=== PATIENT | female | born 1950 | race Caucasian/White ===

== ENCOUNTER → 2024-03-27 | Outpatient (CLI) | payer MEDICARE, BC, SELFPAY ==
[2024-03-27 10:57] LABS: Collection Type, Urine Clean Catch
[2024-03-27 11:29] LABS: Basophils % (Auto) 1 % (0-2.5); Eosinophils # (Auto) 0.3 Thou/mm3 (0.0-0.5); Eosinophils % (Auto) 4 % (0-10); Hematocrit 39.8 % (36.0-46.0); Immature Granulocytes % (Auto) 0 % (0-0); Immature Granulocytes Auto 0.01 Thou/mm3 (0.00-0.00); Lymphocytes # (Auto) 2.5 Thou/mm3 (1.0-4.8); Lymphocytes % (Auto) 38 % (10-50); Mean Corpuscular HGB Conc 32.7 g/dl (31.0-37.0); Mean Corpuscular Hemoglobin 28.6 pg (25.0-35.0); Mean Corpuscular Volume 88 fL (80-100); Monocytes # (Auto) 0.5 Thou/mm3 (0.0-0.8); Monocytes % (Auto) 8 % (0-12); Neutrophils # (Auto) 3.1 Thou/mm3 (1.8-7.7); Neutrophils % (Auto) 49 % (37-80); Nucleated Red Blood Cell % 0 /100 WBC (0); Platelet Count 169 Thou/mm3 (140-440); RDW Standard Deviation 46.5 fL (36.4-46.3); Red Blood Count 4.54 Miln/mm3 (4.00-5.20); White Blood Count 6.4 Thou/mm3 (3.6-11.0)
[2024-03-27 11:47] LABS: Amorphous Crystals,Urine Present (Absent); Bilirubin,Urine Negative (Negative); Blood,Urine Negative (Negative); Color,Urine Lt-Yellow (Lt Yel-Yel); Culture Indicated,Urine Not Indicated; Glucose, Urine Negative (Negative); Ketones,Urine Negative (Negative); Leukocyte Esterase,Urine Negative (Negative); Nitrite,Urine Negative (Negative); PH,Urine 7.5 (5.0-7.0); Protein,Urine 2+ (Neg - Trace); RBC,Urine 3 /hpf (0-3); Specific Gravity,Urine 1.011 (1.001-1.035); Squamous Epithelial Cell,Urine 1 /hpf (0-5); Urobilinogen,Urine Negative mg/dL (0.0-1.0); WBC,Urine 1 /hpf (0-5)
[2024-03-27 11:49] LABS: Clarity,Urine Hazy (Clear/Hazy)
[2024-03-27 11:53] LABS: Glucose Estimated Average 123 mg/dL (80-131); Hemoglobin A1C 5.9 % Hgb (4.8-6.0)
[2024-03-27 11:54] LABS: Alanine Aminotransferase 45 U/L (10-49); Albumin, Serum 4.1 gm/dL (3.4-4.8); Albumin/Globulin Ratio 1.6 (1.2-2.2); Alkaline Phosphatase 57 U/L (46-116); Anion Gap 6 (7-16); Aspartate Amino Transferase 42 U/L (0-34); BUN/Creatinine Ratio 18 Ratio (12-20); Bilirubin,Total 0.5 mg/dL (0.3-1.2); Blood Urea Nitrogen 20 mg/dL (9-23); Calcium 10.7 mg/dL (8.3-10.6); Calcium (Corrected) 10.7 mg/dL (8.5-10.1); Carbon Dioxide 29.5 mMol/L (20.0-31.0); Cardiac Risk Estimate 5.4 RATIO (3.7-5.6); Chloride 107 mMol/L (98-107); Cholesterol 162 mg/dL (132-200); Creatinine (Component) 1.1 mg/dL (0.6-1.3); Free T4 (Free Thyroxine) 1.51 ng/dL (0.89-1.76); Globulin 2.6 gm/dL (2.3-3.5); Glucose 102 mg/dL (74-106); HDL Cholesterol 30 mg/dL (40-60); LDL Cholesterol,Calculated 92 mg/dL (0-130); Osmolality,Calculated 285 (275-295); Potassium 3.5 mMol/L (3.4-5.1); Sodium 142 mMol/L (136-145); Thyroid Stimulating Hormone 0.85 uIU/mL (0.55-4.78); Total Protein 6.7 gm/dL (5.7-8.2); Triglycerides 202 mg/dL (30-150); eGFR 53 See Note
[2024-03-27 12:06] LABS: Creatinine MALB Rnd Ur 47 mg/dL (30-125); Microalbumin Creat Ratio 1949 mg/gCrea (<30); Microalbumin, Random Urine 916 mg/L (0-300)
== END | disposition home or self-care (01) ==
LOC: SLDO 10:50
PROVIDERS: PCP Internal Medicine; Referring Provider Internal Medicine; Visit Provider Internal Medicine
DX: I10 Essential (primary) hypertension (principal); E11.65 Type 2 diabetes mellitus with hyperglycemia
CPT/HCPCS: 36415; 80053; 80061; 81001; 82043; 82570; 83036; 84439; 84443; 85025

== ENCOUNTER 2024-04-15 17:31 | Inpatient (IN) | payer MEDICARE, BC, SELFPAY ==
[2024-04-15] VITALS (7 sets, daily range): BP systolic 130–144; BP diastolic 105–117; PULSE 73–81; RESP 7–17; TEMP 37.3–37.5; O2SAT 95–97; BMI 38.9
--- NOTE | 2024-04-15 17:56 | XR_ITS ---
Examination: CT brain head without contrast. 2-D sagittal coronal reconstructions Date and time of exam:April 15, 2024 1813 hrs. Indications: Onset altered mental status today, diagnosis breast cancer post radiation therapy mastectomy, onset confusion December 2023, cerebritis encephalopathy pattern on brain MRI December 30, 2023, history CVA left basal ganglia, left brainstem on CT brain December 24, 2023 Comparison: December 24, 2023 CTDI: vol (mGy):53.5 DLP: (mGycm):1118 Technique: Multiple CT axial sections of the brain have been obtained, 5 mm slice thickness. Contrast has not been administered. 2-D sagittal, coronal reconstructions have been obtained Low dose protocols were performed. One or more of the following dose reduction techniques were used; automated exposure control, adjustment of the mA and/or KV according to patient size, use of iterative reconstruction technique. Findings: No significant ventricular enlargement. Old infarct left basal ganglia, left brainstem pontine level Intra-axial or extra-axial hemorrhage density is not seen. No mass effect or midline shift Basal cisterns are not remarkable. Fourth ventricle is midline. Cranial vault intact. Impression: Negative for acute hemorrhage, mass effect or midline shift Consider repeat brain MRI follow-up stroke protocol
--- NOTE | 2024-04-15 17:57 | EKG_ITS ---
[facility] Test Date: 2024-04-15 Pat Name: VAIBHAV ZUÑIGA Department: Room: - Gender: Female Paper Folder: : 1950 Requested By: Rg Pfeiffer Order Number: [id number] Reading MD: Rg Pfeiffer Measurements Intervals Odonnell Rate: 78 P: -1 LA: 179 QRS: -71 QRSD: 133 T: 46 QT: 303 QTc: 346 Interpretive Statements SINUS RHYTHM MARKED LEFT AXIS DEVIATION [QRS AXIS < -30] INTRAVENTRICULAR CONDUCTION DELAY [130+ ms QRS DURATION] VOLTAGE CRITERIA FOR LVH [MEETS CRITERIA IN ONE OF: R(aVL), S(V1), R(V5), R(V5/V6)+S(V1)] Compared to ECG 12/24/2023 13:33:36 Left-axis deviation now present First degree AV block no longer present ST (T wave) deviation no longer present /store/S0/[id number]/[id number].pdf
--- NOTE | 2024-04-15 17:59 | PD.EDADULT ---
ED General RME/HPI General Chief complaint: Altered Mental Status Stated complaint: AMS Time Seen by Provider: 04/15/24 17:48 Arrival date/time: 04/15/24 17:31 CC: Altered mental status HPI report from EMS is approximately 3 to 4 days. The patient is obtunded but is responding very simple questions and brisk withdrawing to noxious stimuli. Patient is afebrile with stable vital signs. Review the medical records show a similar episode occurred in December 2023 which was determined to be a urinary tract infection. Patient also has a history of breast cancer at bedside was interviewed at 1830, states the patient has had a slow decline over the last 2 weeks. Has been states since the discharge in December 2023 from this facility patient has been nonambulatory and he has been using a Roger lift to move her from bed to chair and back. Patient also states the patient is a DNR DNI. Related Data Home Medications ?Medication ?Instructions ?Recorded ?Confirmed atorvastatin 40 mg tablet (Lipitor) 80 mg PO HS #0 tabs 09/07/16 04/16/24 omeprazole 20 mg capsule,delayed 20 mg PO QDAY ##0 09/07/16 12/24/23 release amiodarone 200 mg tablet 200 mg PO QDAY 03/25/22 12/28/23 anastrozole 1 mg tablet 1 mg PO QDAY 03/25/22 12/24/23 apixaban 5 mg tablet (Eliquis) 5 mg PO BID 03/25/22 12/28/23 hydrocodone 10 mg-acetaminophen 1 tab PO QID PRN Pain, Moderate 03/25/22 12/28/23 325 mg tablet memantine 10 mg tablet 5 mg PO QDAY 03/25/22 12/28/23 pramipexole 0.5 mg tablet 0.5 mg PO HS 03/25/22 12/24/23 alendronate 35 mg tablet 20 mg PO WMHS 08/02/23 12/24/23 sennosides 8.6 mg tablet (Senna 8.6 mg PO QDAY 08/02/23 12/24/23 Lax) triazolam 0.125 mg tablet 0.25 mg PO HS PRN Insomnia 08/02/23 04/16/24 calcium 600 mg (as carbonate)-vit 1 tab PO BID 12/24/23 12/24/23 D3 20 mcg (800 unit) chewable tablet (Caltrate plus D) nifedipine 30 mg tablet,extended 30 mg PO QDAY 12/24/23 12/24/23 release 24 hr bisacodyl 5 mg tablet,delayed 5 mg PO BID 12/28/23 12/28/23 release (Dulcolax (bisacodyl)) fluoxetine 20 mg capsule 20 mg PO HS 12/28/23 12/28/23 gabapentin 600 mg tablet 100 mg PO HS 12/28/23 04/16/24 multivitamin 1 cap PO QDAY 12/28/23 12/28/23 sitagliptin phosphate 100 mg 100 mg PO QDAY 12/28/23 12/28/23 tablet (Januvia) Allergies Allergy/AdvReac Type Severity Reaction Status Date / Time meperidine Allergy Mild VOMITING Verified 03/26/22 08:51 tetracycline Allergy Mild RASH Verified 03/26/22 08:51 Course Course Course Narrative: Patient's case discussed with resident for Dr. Guidry who agrees to accept the patient for admission. Patient will be admitted for UTI altered mental status elevated calcium level Quality Measures VTE prophylaxis Orders Category Date Time Status EKG (ED ONLY) *Do not use* NOW Care 04/15/24 17:57 Completed Brown [Urinary Catheter] QS Care 04/15/24 17:55 Active Brown [Urinary Catheter] QS Care 04/15/24 17:59 Active Saline [Insert IV] NOW Care 04/15/24 17:[address] head/brain wo con Stat Exams 04/15/24 17:56 Completed EKG (ED Only) Stat Exams 04/15/24 17:57 Draft B-Type Natriuretic Peptide Stat Lab 04/15/24 18:05 Completed Blood Culture (Lab) Stat Lab 04/15/24 18:00 Received CBC Stat Lab 04/15/24 18:05 Completed Comprehensive Metabolic Panel Stat Lab 04/15/24 18:05 Completed Drug Screen,Urine Stat Lab 04/15/24 18:00 Completed LDH (Lactate Dehydrogenase) Stat Lab 04/15/24 18:05 Completed Lactic Acid [Lactate (Lactic Acid)] Stat Lab 04/15/24 18:05 Completed Magnesium Stat Lab 04/15/24 18:05 Completed Partial Thromboplastin Time Stat Lab 04/15/24 18:05 Completed Procalcitonin Stat Lab 04/15/24 18:05 Completed Prothrombin Time with INR Stat Lab 04/15/24 18:05 Completed Troponin I Stat Lab 04/15/24 18:05 Completed Urinalysis Stat Lab 04/15/24 18:00 Completed Urine Culture Stat Lab 04/15/24 18:00 Received POTASSIUM CHL 10 mEq IVPB [Kcl Ivpb] Med 04/15/24 19:19 Discontinued 10 meq in 100 ml IV Q1H Sodium Chloride 0.9% 1000 ml [Ns] 1,000 ml Med 04/15/24 17:58 Discontinued IV 100 mls/hr cefTRIAXone/D5w 1gm IV premix [Rocephin/D5w 1gm IV Med 04/15/24 18:53 Discontinued premix] 50 ml IV X1 Vital Signs Vital signs: Vital Signs Pulse Rate 81 04/15/24 17:44 Respiratory Rate 7 L 04/15/24 17:44 Blood Pressure 144/117 H 04/15/24 17:44 Pulse Oximetry (%) 95 04/15/24 17:44 Oxygen Delivery Method Room Air 04/15/24 17:44 Oxygen Flow Rate 3 04/15/24 17:44 [facility] Patient data External records reviewed:: [facility] previous records and EMS form Clinical information provided by:: patient and EMS Social determinants that could affect healthcare access:: none Patient has the following chronic illnesses:: Breast cancer recurrent UTI How is presenting disease/condition affected by chronic disease/condition?: uneffected by Evaluation data The following diagnostics were reviewed and interpreted by me:: lab results and EKG tracing(s) Lab and/or radiology exams considered but not ordered:: EKG performed at 1908 shows ventricular rate of 78 ND interval 179 QRS of 133 QTc of 336 is sinus rhythm left axis deviation. When compared to an old EKG of December 2023 there are no significant changes. CBC shows a leukocytosis no anemia thrombocytopenia Coags within acceptable limits CMP sodium 155 potassium 3.0 chloride of 118 bicarb of 24.9 BUN of 56 creatinine of 2.8 with a glucose of 163. Urine is positive for UTI positive for nitrites positive for 4+ bacteria as well as leukocyte esterase. CT of the head is interpreted by me read by radiology as negative for any acute finding requires emergent or immediate intervention. Interpretation Summary: Last urine culture sensitivity shows the patient has E. coli that is resistant to Rocephin. CT of the head is negative urine is positive this is similar to the last admission in December 2023 the patient has a UTI and elevated calcium level will admit the patient for altered mental status hypercalcemia and UTI. Medications Medications considered but not ordered:: None Medication administrations:: Medication Administration History Acetaminophen (Acetaminophen 325 Mg Tablet) 650 mg PO Q6H PRN PRN Reason: PAIN OR FEVER > 101 Stop: 05/15/24 19:49 Hydrocodone Bitart/Acetaminophen (Hydrocodone/Apap 10/325 Tab) 1 tab PO Q6HR PRN PRN Reason: PAIN SCALE 4-10(Mod-Sev Stop: 04/20/24 19:53 Amiodarone HCl (Amiodarone Hcl 200 Mg Tablet) 200 mg PO QDAY [facility] Stop: 05/16/24 08:59 Last Admin: 04/16/24 09:20 Dose: Not Given Documented By: NS Non-Admin Reason: pt NPO pending speech eval Apixaban (Apixaban 2.5 Mg Tablet) 5 mg PO BID [facility] [place] Stop: 05/15/24 20:59 Last Admin: 04/16/24 09:21 Dose: Not Given Documented By: NS Non-Admin Reason: pt NPO pending speech eval Admin: 04/15/24 23:04 Dose: Not Given Documented By: VR Non-Admin Reason: NPO Dextrose (Dextrose 50%-Water Inj 50 Ml Syringe) 25 ml IV Q15MIN PRN PRN Reason: BG 50-70 responsive npo pt Stop: 05/15/24 19:55 Dextrose (Dextrose 50%-Water Inj 50 Ml Syringe) 50 ml IV Q15MIN PRN PRN Reason: BG <50 OR BG <70 & pt unresponsive Stop: 05/15/24 19:55 Glucagon (Glucagon Inj 1 Mg Vial) 1 mg IM Q15MIN PRN PRN Reason: BG <70, and no IV access Hydralazine HCl (Hydralazine Inj 20 Mg/Ml Vial) 10 mg IV Q6H PRN PRN Reason: sbp>160 Stop: 05/16/24 05:29 Ceftriaxone Sodium/Dextrose (Rocephin/D5w 1gm Iv Premix) 50 mls @ 100 mls/hr IV QDAY [facility] [place] Stop: 04/23/24 08:59 Last Admin: 04/16/24 09:20 Dose: 100 mls/hr Documented By: ELDER Dextrose (D5w) 1,000 mls @ 100 mls/hr IV .Q10H SABINA Stop: 04/17/24 06:44 Last Admin: 04/16/24 06:45 Dose: 100 mls/hr Documented By: VIKAS Insulin Human Lispro (Insulin Lispro (Admelog) 1 Unit/0.01 Ml Unit) 0 unit SC Q6HR SBAINA; Protocol Stop: 05/16/24 00:14 Last Admin: 04/16/24 05:33 Dose: 2 unit Documented By: VIKAS Co-signed By: STEPHANIE Admin: 04/16/24 00:10 Dose: 1 unit Documented By: VIKAS Co-signed By: NAVIN Ondansetron HCl (Ondansetron Inj 2 Mg/Ml Inj 2 Ml) 4 mg IV Q6H PRN; Protocol PRN Reason: NAUSEA OR VOMITING Stop: 05/15/24 19:49 Pantoprazole Sodium (Pantoprazole Inj 40 Mg Vial) 40 mg IVP QDAY SABINA Stop: 05/16/24 08:59 Last Admin: 04/16/24 09:19 Dose: 40 mg Documented By: ELDER Sennosides (Senna Tablet) 1 tab PO QDAY [facility]; Protocol Stop: 05/16/24 08:59 Last Admin: 04/16/24 09:21 Dose: Not Given Documented By: NS Non-Admin Reason: pt NPO pending speech eval Discontinued Medications Calcitonin [place] (Calcitonin, [place] Synth Inj 1 Unit/0.005 Ml Vial) 400 unit SC X1 ONE Stop: 04/16/24 00:32 Last Admin: 04/16/24 01:17 Dose: 400 unit Documented By: VIKAS Denosumab (Denosumab Inj 60 Mg/Ml Syringe) 60 mg SC X1 SABINA Stop: 05/15/24 21:44 Denosumab (Denosumab Inj 60 Mg/Ml Syringe) 60 mg SC X1 ONE Stop: 04/16/24 01:01 Hydralazine HCl (Hydralazine Inj 20 Mg/Ml Vial) 10 mg IV Q6H PRN PRN Reason: Blood Pressure - High Stop: 05/16/24 05:29 Last Admin: 04/16/24 05:35 Dose: 10 mg Documented By: VIKAS Sodium Chloride (Ns) 1,000 mls @ 100 mls/hr IV .Q10H SABINA Stop: 04/16/24 17:57 Last Admin: 04/15/24 18:43 Dose: 100 mls/hr Documented By: MARICRUZ Ceftriaxone Sodium/Dextrose (Rocephin/D5w 1gm Iv Premix) 50 mls @ 100 mls/hr IV X1 ONE Stop: 04/15/24 19:22 Last Admin: 04/15/24 19:20 Dose: 100 mls/hr Documented By: HERBERTH Potassium Chloride (Kcl Ivpb) 10 meq in 100 mls @ 100 mls/hr IV Q1H SABINA Stop: 04/15/24 23:18 Last Admin: 04/16/24 02:03 Dose: 90 mls/hr Documented By: Infusion: 04/16/24 01:52 Dose: Infused Documented By: Admin: 04/16/24 00:45 Dose: 90 mls/hr Documented By: Infusion: 04/15/24 23:52 Dose: Infused Documented By: Admin: 04/15/24 22:45 Dose: 90 mls/hr Documented By: Infusion: 04/15/24 22:30 Dose: Infused Documented By: Admin: 04/15/24 20:31 Dose: 100 mls/hr Documented By: HERBERTH Sodium Chloride (Ns) 1,000 mls @ 100 mls/hr IV .Q10H SABINA Stop: 04/16/24 15:59 Last Admin: 04/15/24 23:46 Dose: Not Given Documented By: VIKAS Non-Admin Reason: task duplication Sodium Chloride (Ns) 1,000 mls @ 150 mls/hr IV .Q6H40M [facility] Stop: 04/16/24 21:00 Last Admin: 04/16/24 02:56 Dose: 150 mls/hr Documented By: VIKAS Insulin Human Lispro (Insulin Lispro (Admelog) 1 Unit/0.01 Ml Unit) 0 unit SC ACHS [facility]; Protocol Stop: 05/15/24 20:59 Last Admin: 04/15/24 22:46 Dose: Not Given Documented By: HERBERTH Non-Admin Reason: NPO Comments: not given Pamidronate Disodium (Pamidronate Inj 90 Mg/10 Ml Vial) 90 mg IV X1 ONE Stop: 04/15/24 19:53 Last Admin: 04/16/24 03:01 Dose: Not Given Documented By: VIKAS Non-Admin Reason: Discontinued None Consultations Consultation(s) initiated? (list below): No Diagnosis Differential Diagnosis ED Complaint MDM: WILLIAM dehydration UTI altered mental status hypercalcemia Most likely diagnosis given after review of the tests above:: WILLIAM dehydration UTI altered mental status hypercalcemia Admission Indicated Admission indicated?: indicated Explain why admission is indicated or not indicated:: Requires further medical management Admission Request Was there a request for admission?: No Disposition Plan Disposition Plan: Admit Medical Decision Making Differential Diagnosis Differential Diagnosis: WILLIAM dehydration UTI altered mental status hypercalcemia Lab Data 04/16/24 05:23 04/16/24 09:05 Labs: Lab Results 04/15/24 04/15/24 Range/Units 18:00 18:05 WBC 15.7 H (3.6-11.0) Thou/mm3 RBC 5.71 H (4.00-5.20) Miln/mm3 Hgb 16.5 H (12.0-16.0) g/dL Hct 51.2 H (36.0-46.0) % MCV 90 (80-100) fL MCH 28.9 (25.0-35.0) pg MCHC 32.2 (31.0-37.0) g/dl RDW Std Deviation 46.9 H (36.4-46.3) fL Plt Count 190 (140-440) Thou/mm3 Neut % (Auto) 65 (37-80) % Lymph % (Auto) 27 (10-50) % Simpson % (Auto) 7 (0-12) % Eos % (Auto) 0 (0-10) % Baso % (Auto) 0 (0-2.5) % Neut # (Auto) 10.2 H (1.8-7.7) Thou/mm3 Lymph # (Auto) 4.2 (1.0-4.8) Thou/mm3 Simpson # (Auto) 1.1 H (0.0-0.8) Thou/mm3 Eos # (Auto) 0.0 (0.0-0.5) Thou/mm3 Baso # (Auto) 0.1 (0.0-0.2) Thou/mm3 Immature Gran # (Auto) 0.06 H (0.00-0.00) Thou/mm3 Absolute Nucleated RBC 0.00 (0.00-0.00) Thou/mm3 Immature Gran % 0 (0-0) % Nucleated RBC % 0 (0) /100 WBC PT 13.0 H (9.0-12.2) Seconds INR 1.2 (0.9-1.3) APTT 25.0 (22.0-36.0) Seconds Sodium 155 H (136-145) mMol/L Potassium 3.0 L (3.4-5.1) mMol/L Chloride 118 H (98-107) mMol/L Carbon Dioxide 24.9 (20.0-31.0) mMol/L Anion Gap 12 (7-16) BUN 56 H (9-23) mg/dL Creatinine 2.8 H (0.6-1.3) mg/dL Estim Creat Clear Calc 20.5 L (>60) mL/min eGFR 17 L (60 - ) See Note BUN/Creatinine Ratio 20 (12-20) Ratio Glucose 163 H (74-106) mg/dL Calculated Osmolality 326 H (275-295) Lactic Acid 1.2 (0.4-2.0) mMol/L Calcium 13.8 H* (8.3-10.6) mg/dL Corrected Calcium 13.8 H* (8.5-10.1) mg/dL Magnesium 2.6 (1.6-2.6) mg/dL Total Bilirubin 0.6 (0.3-1.2) mg/dL AST 55 H (0-34) U/L ALT 42 (10-49) U/L Alkaline Phosphatase 65 (46-116) U/L Lactate Dehydrogenase 236 (120-246) U/L Troponin I 0.044 (0.0-0.045) ng/mL B-Natriuretic Peptide 94 (0-100) pg/mL Total Protein 7.9 (5.7-8.2) gm/dL Albumin 4.6 (3.4-4.8) gm/dL Globulin 3.3 (2.3-3.5) gm/dL Albumin/Globulin Ratio 1.4 (1.2-2.2) Procalcitonin 0.28 (0.0-0.49) ng/ml Ur Collection Type Clean Catch Urine Color Yellow (Lt Yel-Yel) Urine Clarity Turbid A (Clear/Hazy) Urine pH 6.0 (5.0-7.0) Ur Specific [place] 1.022 (1.001-1.035) Urine Protein 3+ A (Neg - Trace) Urine Glucose (UA) Negative (Negative) Urine Ketones Negative (Negative) Urine Blood Trace (Negative) Urine Nitrite Negative (Negative) Urine Bilirubin Negative (Negative) Urine Urobilinogen (Auto) Negative (0.0-1.0) mg/dL Ur Leukocyte Esterase Positive (Negative) Urine RBC 3 (0-3) /hpf Urine WBC 145 H (0-5) /hpf Ur Squamous Epith Cells 3 (0-5) /hpf Urine Bacteria 4+ A (None) Hyaline Casts < 1 (0-1) /hpf Urine Opiates Screen Positive A (Negative) Urine Fentanyl Screen Negative (Negative) Ur Barbiturates Screen Negative (Negative) U Amphetamin/Meth Scrn Negative (Negative) U Benzodiazepines Scrn Negative (Negative) U Cocaine Metab Screen Negative (Negative) U Marijuana (THC) Screen Negative (Negative) Discharge Plan Plan Patient Disposition: Admit Acute Care w/in Hospital Patient condition on transfer: Stable Problem List Clinical Impression: Altered mental status, Urinary tract infection, Dehydration, WILLIAM (acute kidney injury), Hypercalcemia PA/[employer]ARCH [employer] SCIENTIST Supervising Physician PA/[employer] SCIENTIST Supervising Physician: Rg Huitron ENP
[2024-04-15 18:12] LABS: Lactate (Lactic Acid) 1.2 mMol/L (0.4-2.0)
[2024-04-15 18:14] LABS: Collection Type, Urine Clean Catch
[2024-04-15 18:15] LABS: Basophils # (Auto) 0.1 Thou/mm3 (0.0-0.2); Basophils % (Auto) 0 % (0-2.5); Eosinophils % (Auto) 0 % (0-10); Hematocrit 51.2 % (36.0-46.0); Hemoglobin 16.5 g/dL (12.0-16.0); Immature Granulocytes % (Auto) 0 % (0-0); Immature Granulocytes Auto 0.06 Thou/mm3 (0.00-0.00); Lymphocytes # (Auto) 4.2 Thou/mm3 (1.0-4.8); Lymphocytes % (Auto) 27 % (10-50); Mean Corpuscular HGB Conc 32.2 g/dl (31.0-37.0); Mean Corpuscular Hemoglobin 28.9 pg (25.0-35.0); Mean Corpuscular Volume 90 fL (80-100); Monocytes # (Auto) 1.1 Thou/mm3 (0.0-0.8); Monocytes % (Auto) 7 % (0-12); Neutrophils # (Auto) 10.2 Thou/mm3 (1.8-7.7); Neutrophils % (Auto) 65 % (37-80); Nucleated Red Blood Cell % 0 /100 WBC (0); Platelet Count 190 Thou/mm3 (140-440); RDW Standard Deviation 46.9 fL (36.4-46.3); Red Blood Count 5.71 Miln/mm3 (4.00-5.20); White Blood Count 15.7 Thou/mm3 (3.6-11.0)
[2024-04-15 18:25] LABS: Bacteria,Urine 4+; Bilirubin,Urine Negative (Negative); Blood,Urine Trace (Negative); Clarity,Urine Turbid (Clear/Hazy); Color,Urine Yellow (Lt Yel-Yel); Glucose, Urine Negative (Negative); Hyaline Casts,Urine < 1 /hpf (0-1); Ketones,Urine Negative (Negative); Leukocyte Esterase,Urine Positive (Negative); Nitrite,Urine Negative (Negative); Protein,Urine 3+ (Neg - Trace); RBC,Urine 3 /hpf (0-3); Specific Gravity,Urine 1.022 (1.001-1.035); Squamous Epithelial Cell,Urine 3 /hpf (0-5); Urobilinogen,Urine Negative mg/dL (0.0-1.0); WBC,Urine 145 /hpf (0-5)
[2024-04-15 18:33] LABS: Amphetamine/Methamp Scrn,U Negative (Negative); Barbiturate Screen,Urine Negative (Negative); Benzodiazepines Screen,Urine Negative (Negative); Benzoylecgonine Screen, Ur Negative (Negative); Fentanyl Screen,Urine Negative (Negative); Opiate Screen,Urine Positive (Negative); THC Screen,Urine Negative (Negative)
[2024-04-15 18:39] LABS: B-Type Natriuretic Peptide 94 pg/mL (0-100)
[2024-04-15 18:42] LABS: Alanine Aminotransferase 42 U/L (10-49); Albumin, Serum 4.6 gm/dL (3.4-4.8); Albumin/Globulin Ratio 1.4 (1.2-2.2); Alkaline Phosphatase 65 U/L (46-116); Anion Gap 12 (7-16); Aspartate Amino Transferase 55 U/L (0-34); BUN/Creatinine Ratio 20 Ratio (12-20); Bilirubin,Total 0.6 mg/dL (0.3-1.2); Blood Urea Nitrogen 56 mg/dL (9-23); Carbon Dioxide 24.9 mMol/L (20.0-31.0); Chloride 118 mMol/L (98-107); Creatinine (Component) 2.8 mg/dL (0.6-1.3); Estimated Creatinine Clearance 20.5 mL/min (>60); Globulin 3.3 gm/dL (2.3-3.5); Glucose 163 mg/dL (74-106); LDH (Lactate Dehydrogenase) 236 U/L (120-246); Magnesium 2.6 mg/dL (1.6-2.6); Osmolality,Calculated 326 (275-295); Procalcitonin 0.28 ng/ml (0.0-0.49); Sodium 155 mMol/L (136-145); Total Protein 7.9 gm/dL (5.7-8.2); Troponin I 0.044 ng/mL (0.0-0.045); eGFR 17 See Note
[2024-04-15] MEDS: SODIUM CHLORIDE 0.9% 1000 ML 1,000 ML 100 ML IV (18:43)
[2024-04-15 19:10] LABS: Calcium 13.8 mg/dL (8.3-10.6); Calcium (Corrected) 13.8 mg/dL (8.5-10.1)
[2024-04-15] MEDS: cefTRIAXone/D5w 1gm IV premix 50 ML IV (19:20)
[2024-04-15 19:38] LABS: INR 1.2 (0.9-1.3)
--- NOTE | 2024-04-15 19:58 | PD.RESHP ---
Documentation for date of: 04/15/24 [facility] History of Present Illness History of present illness: Patient is 73-year-old female with past medical history of triple coronary artery bypass surgery, complicated with wound infection, subsequently had operative debridement and wound VAC was placed, has a wide deep scar in the middle of the chest, history of partial mastectomy due to breast cancer, completed full course of radiation in 2021, history of recurrent UTIs, dementia, history of hypercalcemia of malignancy, presents to ED accompanied with with chief complaints of altered mental status. Upon my evaluation patient was AAO x 0, and most of the history were taken from as well as per chart review. Symptoms started about a week ago, per patient had decreased appetite and oral intake, also for the last 3 months patient has been having visual hallucination, was seeing someone who is not present in the room. Last week per they had outpatient labs done, which was normal for the most part, however especially for the last 3 days, patient was becoming more somnolent, was not able to answer to questions, was not able to communicate, and was looking more altered. Subsequently has been decided to bring her to ED for further evaluation. On presentation patient was hemodynamically stable, saturating in room air, labs revealed leukocytosis with WBC of 15.7, hemoglobin of 16.5, hematocrit 51.2, CMP revealed hyper natremia with sodium of 155, hypokalemia, potassium of 3.0, WILLIAM with BUN of 56, creatinine is 2.8, EGFR of 17, calcium is 13.8, UA is consistent with UTI, U tox is positive for opioids, patient is on Weir at home. CT head was negative for any hemorrhage, mass or midline shift, MRI which was done in 12/30/2023 showed increased white matter signal in the posterior oral right temporal parietal lobe with septal enhancement of the cortex. In ED patient was given 1 bolus of NS along with potassium IV Patient will be admitted for acute metabolic encephalopathy most likely in the setting of hypercalcemia versus UTI versus dehydration versus worsening baseline dementia. PMH: as above PSH; CABG, partial mastectomi SH: no smoking, drinking, recreational drugs FH:unknown Review of Systems Review of Systems ROS Unobtainable: unobtainable due to mental status Exam Vital Signs Temp Pulse Resp BP Pulse Ox O2 Del Method O2 Flow Rate 99.1 F 77 16 130/105 H 97 Nasal Cannula 2 04/15/24 19:33 04/15/24 19:33 04/15/24 19:33 04/15/24 19:33 04/15/24 19:33 04/15/24 19:33 04/15/24 19:33 Narrative Exam GENERAL: no acute distress, AAO x, obese HEENT: Head AT/ NC. Mucous membranes moist. PERRL. NECK: Supple, no lymphadenopathy, no carotid bruits. CARDIOVASCULAR: No m/r/g. wide deep scare in a middle of chest, small scare on left breast, No pitting edema of bilateral LEs. RESPIRATORY: No wheezing, rhonchi, crackles, however limited due to body habitus GASTROINTESTINAL: Abdomen soft, non tender no palpable masses. Bowel sounds present in all 4 quadrants.Brown noted with turbit urine NEUROLOGICAL: No focal deficits. Sensation intact, symmetric. INTEGUMENTARY: no jaundice, normal turgor. Results: Labs 04/15/24 18:05 04/15/24 20:20 Labs: Short CBC 04/15/24 Range/Units 18:05 WBC 15.7 H (3.6-11.0) Thou/mm3 Hgb 16.5 H (12.0-16.0) g/dL Hct 51.2 H (36.0-46.0) % Plt Count 190 (140-440) Thou/mm3 BMP 04/15/24 18:05 Sodium 155 H Potassium 3.0 L Chloride 118 H Carbon Dioxide 24.9 BUN 56 H Creatinine 2.8 H Glucose 163 H Calcium 13.8 H* Cardiac Enzymes 04/15/24 Range/Units 18:05 Troponin I 0.044 (0.0-0.045) ng/mL Liver Function 04/15/24 Range/Units 18:05 Total Bilirubin 0.6 (0.3-1.2) mg/dL AST 55 H (0-34) U/L ALT 42 (10-49) U/L Alkaline Phosphatase 65 (46-116) U/L Albumin 4.6 (3.4-4.8) gm/dL Urine 04/15/24 Range/Units 18:00 Urine Color Yellow (Lt Yel-Yel) Urine Clarity Turbid A (Clear/Hazy) Urine pH 6.0 (5.0-7.0) Ur Specific [place] 1.022 (1.001-1.035) Urine Protein 3+ A (Neg - Trace) Urine Glucose (UA) Negative (Negative) Quality Measures Quality Measures VTE prophylaxis Advance care planning discussed with:: spouse Medications Home Medications and Allergies Home Medications ?Medication ?Instructions ?Recorded ?Confirmed ?Type atorvastatin 40 mg tablet (Lipitor) 40 mg PO HS #0 tabs 09/07/16 12/28/23 History omeprazole 20 mg capsule,delayed 20 mg PO QDAY ##0 09/07/16 12/24/23 History release amiodarone 200 mg tablet 200 mg PO QDAY 03/25/22 12/28/23 History anastrozole 1 mg tablet 1 mg PO QDAY 03/25/22 12/24/23 History apixaban 5 mg tablet (Eliquis) 5 mg PO BID 03/25/22 12/28/23 History hydrocodone 10 mg-acetaminophen 1 tab PO QID PRN Pain, Moderate 03/25/22 12/28/23 History 325 mg tablet memantine 10 mg tablet 5 mg PO QDAY 03/25/22 12/28/23 History pramipexole 0.5 mg tablet 0.5 mg PO HS 03/25/22 12/24/23 History alendronate 35 mg tablet 20 mg PO WMHS 08/02/23 12/24/23 History sennosides 8.6 mg tablet (Senna 8.6 mg PO QDAY 08/02/23 12/24/23 History Lax) triazolam 0.125 mg tablet 0.125 mg PO HS 08/02/23 12/24/23 History calcium 600 mg (as carbonate)-vit 1 tab PO BID 12/24/23 12/24/23 History D3 20 mcg (800 unit) chewable tablet (Caltrate plus D) nifedipine 30 mg tablet,extended 30 mg PO QDAY 12/24/23 12/24/23 History release 24 hr bisacodyl 5 mg tablet,delayed 5 mg PO BID 12/28/23 12/28/23 History release (Dulcolax (bisacodyl)) fluoxetine 20 mg capsule 20 mg PO HS 12/28/23 12/28/23 History gabapentin 600 mg tablet 600 mg PO TID 12/28/23 12/28/23 History multivitamin 1 cap PO QDAY 12/28/23 12/28/23 History sitagliptin phosphate 100 mg 100 mg PO QDAY 12/28/23 12/28/23 History tablet (Januvia) Allergies Allergy/AdvReac Type Severity Reaction Status Date / Time meperidine Allergy Mild VOMITING Verified 03/26/22 08:51 tetracycline Allergy Mild RASH Verified 03/26/22 08:51 Visit Medications Acetaminophen (Acetaminophen 325 Mg Tablet) 650 mg PO Q6H PRN PRN Reason: PAIN OR FEVER > 101 Stop: 05/15/24 19:49 Hydrocodone Bitart/Acetaminophen (Hydrocodone/Apap 10/325 Tab) 1 tab PO Q6HR PRN PRN Reason: PAIN SCALE 4-10(Mod-Sev Stop: 04/20/24 19:53 Apixaban (Apixaban 2.5 Mg Tablet) 5 mg PO BID SABINA Stop: 05/15/24 20:59 Dextrose (Dextrose 50%-Water Inj 50 Ml Syringe) 25 ml IV Q15MIN PRN PRN Reason: BG 50-70 responsive npo pt Stop: 05/15/24 19:55 Dextrose (Dextrose 50%-Water Inj 50 Ml Syringe) 50 ml IV Q15MIN PRN PRN Reason: BG <50 OR BG <70 & pt unresponsive Stop: 05/15/24 19:55 Glucagon (Glucagon Inj 1 Mg Vial) 1 mg IM Q15MIN PRN PRN Reason: BG <70, and no IV access Sodium Chloride (Ns) 1,000 mls @ 100 mls/hr IV .Q10H SABINA Stop: 04/16/24 17:57 Last Admin: 04/15/24 18:43 Dose: 100 mls/hr Potassium Chloride (Kcl Ivpb) 10 meq in 100 mls @ 100 mls/hr IV Q1H SABINA Stop: 04/15/24 23:18 Sodium Chloride (Ns) 1,000 mls @ 100 mls/hr IV .Q10H SABINA Stop: 05/15/24 19:59 Ceftriaxone Sodium/Dextrose (Rocephin/D5w 1gm Iv Premix) 50 mls @ 100 mls/hr IV QDAY [facility] Stop: 04/23/24 08:59 Insulin Human Lispro (Insulin Lispro (Admelog) 1 Unit/0.01 Ml Unit) 0 unit SC ACHS SABINA; Protocol Stop: 05/15/24 20:59 Ondansetron HCl (Ondansetron Inj 2 Mg/Ml Inj 2 Ml) 4 mg IV Q6H PRN; Protocol PRN Reason: NAUSEA OR VOMITING Stop: 05/15/24 19:49 Pantoprazole Sodium (Pantoprazole Inj 40 Mg Vial) 40 mg IVP QDAY SABINA Stop: 05/16/24 08:59 Sennosides (Senna Tablet) 1 tab PO QDAY SABINA; Protocol Stop: 05/16/24 08:59 Discontinued Medications Ceftriaxone Sodium/Dextrose (Rocephin/D5w 1gm Iv Premix) 50 mls @ 100 mls/hr IV X1 ONE Stop: 04/15/24 19:22 Last Admin: 04/15/24 19:20 Dose: 100 mls/hr Pamidronate Disodium (Pamidronate Inj 90 Mg/10 Ml Vial) 90 mg IV X1 ONE Stop: 04/15/24 19:53 Assessment & Plan Plan 73-year-old female with past medical history of CABG complicated with wound infection, subsequently had operative debridement and wound VAC was placed, has a wide deep scar in the middle of the chest, history of partial mastectomy due to breast cancer, completed full course of radiation in 2021, history of recurrent UTIs, dementia, history of hypercalcemia of malignancy was admitted for acute metabolic encephalopathy most likely secondary due to hypercalcemia, dehydration, UTI, versus worsening baseline dementia. #Acute metabolic encephalopathy in the setting of UTI and hypercalcemia versus worsening baseline dementia #Hypercalcemia in the setting of dehydration versus malignancy related hypercalcemia #Dehydration #UTI #WILLIAM most likely prerenal in the setting of dehydration Patient presented with worsening baseline mentation Patient has a history of hypercalcemia most likely secondary due to malignancy, and recently has been taking vitamin D/calcium vitamins also stated that for the last week patient had very poor oral intake was not eating and drinking enough CT head was negative for any hemorrhage, mass or midline shift Labs revealed hypercalcemia with calcium of 13.8, sodium 155, chloride is 118, hemoglobin is 16.5, hematocrit 51.2, WILLIAM with creatinine of 2.8, BUN 15 6, all this labs consistent with severe dehydration, hemoconcentration. -Admit to telemetry for close observation -Aspiration precaution -Keep n.p.o. -NS 100 cc/h, keep monitoring sodium level, avoid sodium correction more than 10-15 in the first 24-hour, Q4h sodium check.(free water deficit 4.8L, she got 1 bolus in ED and currently on 100 cc/h, continue with the normal saline until perfusion deficits corrected, then can be switched to 1/2NS UOP>0.5ml/kg/h. Target 0.5mEq/hr correction ) -Denosumab 60 subcu subcu x 1. (In-house no availability of pamidronic acid, zolendronic acid was considered but given the WILLIAM and CrCl <30, will give donesumab) -Continue ceftriaxone, previous urine culture showed E. coli sensitive to ceftriaxone -Monitor mental status -Speech swallow eval -Treat underlying conditions such as hypercalcemia and UTI -Daily CMP -nephrology was consulted . recs appresiated #hypokalemia replaced, -monitore, replace PRN #DM type II Patient was on home Ozempic -Pending HbA1c -Insulin sliding scale -hypoglycemic protocole is placed -monitor BS #h/oDVT and PE patient is on eliquis 5mg BID Wells score for PE 4.0 moderate risk -will resume after swallow eval is passed #s/p CABG #HTN #HLD BP under control -will resume atorvastatin after swallow eval is passed #Hx of dementia - Patient is on memantine -Will resume after swallow eval is passed #Hx of RLS -Patient is on pramipexole Will resume after swallow eval is passed #hx of breast cancer MRI which was done in 12/30/2023 showed increased white matter signal in the posterior oral right temporal parietal lobe with septal enhancement of the cortex. they have been trying to get an appointment with Dr. Uriostegui, but bc of transportation issues they did not succeed -Dr. Uriostegui consult was placed. recs are appretiated Disposition:telemetry DVT prophylaxis: elequis GI prophylaxis: PPI Diet: NPO, pending speech eval Lines: PIV CODE STATUS:DNR Patient care was discussed with attending physician Dr. Chao Hunter MD PGY-2 I have carefully reviewed this document. Due to imperfections in the voice software, there could be grammatical errors including phonetic/typographic errors. This in no way compromises the medical care the patient is receiving Attending Provider Attestation/Addendum I reviewed labs, imaging, EKG, home medications and prior available records. Face to face evaluation was performed by me. I have personally examined the patient and discussed assessment and plan with the IM team. I reviewed the resident note and agree with the plan with exceptions as below. 73-year-old female with history of dementia likely Alzheimer's type, history of frequent UTIs, who presented with a chief complaint of altered mental status. She was found to have WILLIAM, hypercalcemia, and dehydration. Acute encephalopathy: Likely multifactorial in the setting of hypercalcemia, dehydration, and acute UTI. In the setting of history of dementia. Started the patient on IV fluids. Gave Prolia IV. Started the patient on IV ceftriaxone. Send urine culture. Delirium precautions. Hypercalcemia: Calcium was 13.8 on admission. Started the patient on IV fluids. Gave IV Prolia. Stop calcium/vitamin D supplements. Ordered PTH. Concern for malignancy given her history of breast cancer for which we will consult oncology for further workup. Follow-up calcium level. Acute UTI: Antibiotics as above. Follow-up urine culture. WILLIAM: Likely prerenal in setting of dehydration. IV fluids as above. Monitor kidney function. Avoid nephrotoxins. Leukocytosis: Differential diagnosis includes reactive in the setting of dehydration versus in the setting of infection. Management as above. Trend WBC. Alzheimer's dementia: Resume home memantine once she is able to take orals.
[2024-04-15] MEDS: POTASSIUM CHL 10 mEq IVPB 10 MEQ/100 ML BAG 100 MEQ IV (20:31)
[2024-04-15 21:06] LABS: Sodium 154 mMol/L (136-145); Troponin I 0.044 ng/mL (0.0-0.045)
--- NOTE | 2024-04-15 21:11 | PC.NURSE ---
Admiting notified at around 2057,that pt unable to swallow, therfor unable to administer. angel mae notified that we do not carry pamidromate in ED. HS is calling pharmacy.
[2024-04-15 21:43] LABS: Base Excess 3 (-3-3); HCO3 28 mEq/L (20-26); O2 Saturation 98 % (91-98); PCO2 46 mmHg (32.0-48.0); PO2 103 mmHg (83-108)
[2024-04-15 21:46] LABS: Allen Test Not Performed; Inspired O2, VO2 Liters 3 L/min; Puncture Site Right Brachial
[2024-04-15] MEDS: POTASSIUM CHL 10 mEq IVPB 10 MEQ/100 ML BAG 90 MEQ IV (22:45)
[2024-04-16] VITALS (11 sets, daily range): BP systolic 117–170; BP diastolic 81–121; PULSE 68–77; RESP 12–19; TEMP 36.1–36.9; O2SAT 92–96; BMI 40.6
--- NOTE | 2024-04-16 00:04 | PC.NURSE ---
DR. ELLSWORTH MADE AWARE OF PROLIA NOT AVAILABLE IN [facility] UNTIL PHARMACY OPENS IN AM. STATES SHE WILL CALL PHARMACY TO SEE WHAT ALTERNATIVE OPTION THERE IS.
[2024-04-16] MEDS: INSULIN LISPRO (AdmeLOG) 1 UNIT/0.01 ML UNIT SC ×5 (00:10→23:44)
[2024-04-16] MEDS: POTASSIUM CHL 10 mEq IVPB 10 MEQ/100 ML BAG 90 MEQ IV ×2 (00:45→02:03)
--- NOTE | 2024-04-16 01:02 | PC.NURSE ---
CLARIFIED WITH DR. BETANCOURT THAT BOTH DENOSUMAB AND CALCITONIN BE GIVEN, SHE STATED TO GIVE BOTH.
[2024-04-16 01:05] LABS: Calcium 12.7 mg/dL (8.3-10.6); Sodium 153 mMol/L (136-145)
[2024-04-16] MEDS: CALCITONIN, SALMON SYNTH INJ 1 UNIT/0.005 ML VIAL 400 UNIT SC (01:17)
[2024-04-16] MEDS: SODIUM CHLORIDE 0.9% 1000 ML 1,000 ML 150 ML IV (02:56)
[2024-04-16 02:57] LABS: Troponin I 0.043 ng/mL (0.0-0.045)
--- NOTE | 2024-04-16 03:05 | PC.NURSE ---
SPOKE WITH DR. TURK REGARDING DENOSUMAB AND LABEL COMMENT. UNABLE TO SPEAK WITH REGARDING MEDICATION. STATES HE WILL SPEAK WITH DR. SAWYER FOR RECOMMENDATION. DR. TUKR CALLED BACK AND STATED TO HOLD MEDICATION UNTIL THE MORNING UNTIL FAMILY IS MADE AWARE OF MEDICATION.
[2024-04-16] MEDS: hydrALAZINE INJ 20 MG/ML VIAL 10 MG IV (05:35)
[2024-04-16 06:02] LABS: Basophils % (Auto) 0 % (0-2.5); Eosinophils # (Auto) 0.1 Thou/mm3 (0.0-0.5); Eosinophils % (Auto) 1 % (0-10); Hematocrit 47.4 % (36.0-46.0); Hemoglobin 15.1 g/dL (12.0-16.0); Immature Granulocytes % (Auto) 1 % (0-0); Immature Granulocytes Auto 0.08 Thou/mm3 (0.00-0.00); Lymphocytes # (Auto) 3.3 Thou/mm3 (1.0-4.8); Lymphocytes % (Auto) 24 % (10-50); Mean Corpuscular HGB Conc 31.9 g/dl (31.0-37.0); Mean Corpuscular Hemoglobin 29.2 pg (25.0-35.0); Mean Corpuscular Volume 92 fL (80-100); Monocytes # (Auto) 0.9 Thou/mm3 (0.0-0.8); Monocytes % (Auto) 7 % (0-12); Neutrophils % (Auto) 67 % (37-80); Nucleated Red Blood Cell % 0 /100 WBC (0); Platelet Count 142 Thou/mm3 (140-440); RDW Standard Deviation 48.4 fL (36.4-46.3); Red Blood Count 5.18 Miln/mm3 (4.00-5.20); White Blood Count 13.3 Thou/mm3 (3.6-11.0)
[2024-04-16 06:27] LABS: Alanine Aminotransferase 33 U/L (10-49); Albumin, Serum 4.1 gm/dL (3.4-4.8); Albumin/Globulin Ratio 1.3 (1.2-2.2); Alkaline Phosphatase 60 U/L (46-116); Anion Gap 12 (7-16); Aspartate Amino Transferase 39 U/L (0-34); BUN/Creatinine Ratio 23 Ratio (12-20); Bilirubin,Total 0.5 mg/dL (0.3-1.2); Blood Urea Nitrogen 54 mg/dL (9-23); Calcium 12.3 mg/dL (8.3-10.6); Calcium (Corrected) 12.3 mg/dL (8.5-10.1); Carbon Dioxide 23.5 mMol/L (20.0-31.0); Cardiac Risk Estimate 7.3 RATIO (3.7-5.6); Chloride 120 mMol/L (98-107); Cholesterol 161 mg/dL (132-200); Creatinine (Component) 2.4 mg/dL (0.6-1.3); Estimated Creatinine Clearance 24.4 mL/min (>60); Globulin 3.1 gm/dL (2.3-3.5); Glucose 172 mg/dL (74-106); HDL Cholesterol 22 mg/dL (40-60); LDL Cholesterol,Calculated 84 mg/dL (0-130); Magnesium 2.4 mg/dL (1.6-2.6); Osmolality,Calculated 326 (275-295); Phosphorous 3.5 mg/dL (2.4-5.1); Potassium 3.5 mMol/L (3.4-5.1); Sodium 155 mMol/L (136-145); Thyroid Stimulating Hormone 0.49 uIU/mL (0.55-4.78); Total Protein 7.2 gm/dL (5.7-8.2); Triglycerides 273 mg/dL (30-150); eGFR 21 See Note
[2024-04-16 06:28] LABS: Parathyroid Hormone Intact 47.3 pg/ml (18.5-88.0)
[2024-04-16] MEDS: DEXTROSE 5%-WATER 1,000 ML 100 ML IV ×2 (06:45→17:58)
[2024-04-16 07:04] LABS: Glucose Estimated Average 126 mg/dL (80-131)
[2024-04-16] MEDS: PANTOPRAZOLE INJ 40 MG VIAL IVP (09:19)
[2024-04-16] MEDS: cefTRIAXone/D5w 1gm IV premix 50 ML IV (09:20)
[2024-04-16 09:29] LABS: Troponin I 0.028 ng/mL (0.0-0.045)
--- NOTE | 2024-04-16 10:11 | XR_ITS ---
Examination: AP chest single view TECHNIQUE: Sitting AP portable chest single view Exam date and time: April 16, 2024 1025 hours Comparison January 20, 2024 INDICATIONS: Acute encephalopathy, shortness of breath today FINDINGS: Normal heart size CABG No lobar pneumonia or pulmonary edema Reduced inspiratory effort Old right-sided rib fractures IMPRESSION: Poor inspiratory effort chest x-ray
[2024-04-16 10:38] LABS: Sodium 156 mMol/L (136-145)
--- NOTE | 2024-04-16 10:54 | PC.SS ---
Update: Patient receiving IV antibiotics. Nephrology consultation is pending.
--- NOTE | 2024-04-16 11:14 | PCS.ST ---
Swallow Evaluation completed. See report for details. Initiate Dysphagia 1 diet. Feed when fully alert. Crush meds in purees. ST will follow
--- NOTE | 2024-04-16 11:50 | PC.NURSE ---
spoke to pt in regard to pt receiving denosumab, states that he spoke to doctors odjon and team and agrees with pt receiving said medication.
[2024-04-16] MEDS: DENOSUMAB INJ 60 MG/ML SYRINGE SC (12:05)
--- NOTE | 2024-04-16 13:18 | ESCONSULT_ITS ---
HPI Data of Consult Consult date: 04/16/24 Requesting Physician: Delmer Melissa DO Admitting Provider: Lauren Hunter MD Attending Provider: Delmer Melissa DO Primary Care Provider: Physician No Primary/Family Consult Narrative Reason for consult: WILLIAM, hypernatremia, hypercalcemia. History of present illness: Ms. Haque is a 73-year-old female with past medical history of dementia, CABG (2018,left breast cancer s/p partial mastectomy), hypertension and Hx of hypercalcemia presents to ED accompanied with with chief complaints of altered mental status. Most of the history was taken from as well as per chart review. Symptoms started about a week ago, per patient had decreased appetite and oral intake, also for the last 3 months patient has been having visual hallucination, was seeing someone who is not present in the room. Last week per they had outpatient labs done, which was normal for the most part, however especially for the last 3 days, patient was becoming more somnolent, was not able to answer to questions, was not able to communicate, and was looking more altered. Subsequently has been decided to bring her to ED for further evaluation. On presentation patient was hemodynamically stable, saturating in room air. Labs revealed leukocytosis with WBC of 15.7, hemoglobin of 16.5, hematocrit 51.2, CMP revealed hypernatremia with sodium of 155, hypokalemia, potassium of 3.0, WILLIAM with BUN of 56, creatinine is 2.8, EGFR of 17, calcium is 13.8, UA is consistent with UTI, U tox is positive for opioids, patient is on [place] at home. CT head was negative for any hemorrhage, mass or midline shift. MRI which was done in 12/30/2023 showed increased white matter signal in the posterior oral right temporal parietal lobe with septal enhancement of the cortex. In ED patient was given 1 bolus of NS along with potassium IV. Nephrology consulted for WILLIAM, hyponatremia, hypercalcemia. Patient seen and examined in telemetry. Patient at the bedside, provided history. Patient receiving D5W IVF. Patient minimally responsive, did not follow commands, eyes open and tracking. Patient had mild edema in all extremities. Brown cath in place. Sodium 155, potassium 3.5, bicarb 23.5, BUN 34, creatinine 2.4, eGFR 21. Patient has 0.5 L urinary output. Corrected calcium 12.3, phosphorus 3.5, magnesium 2.4. PTH 47.3. Urinalysis indicating urine infection: 3+ protein, 4+ bacteria, 145 WBCs. Will continue with IVF, monitor. cc:: cc: Delmer Melissa, Review of Systems Review of Systems ROS Unobtainable: unobtainable due to mental status and unobtainable due to medical condition Past Medical History Past Medical History NEUROLOGIC: Positive Neurological Disorders and Dementia; Negative Seizures CARDIAC: Positive Cardiac Disorders, Myocardial Infarction, Cardiac Arrhythmia, Hypercholesterolemia and Hypertension; Negative Congestive Heart Failure or Hypotension RESPIRATORY: Negative Chronic Obstructive Pulmonary Disease (COPD) or Asthma GASTROINTESTINAL: Positive Gastrointestinal Disorders and Gastroesophageal Reflux Disease GENITOURINARY: Positive Genitourinary Disorders and Kidney Stones; Negative Renal Disease REPRODUCTIVE: Positive Breast Cancer MUSCULOSKELETAL: Positive Musculoskeletal Disorders ENDOCRINE: Positive Endocrine Disorders and Diabetes Mellitus Type 2; Negative Diabetes Mellitus Type 1 HEMATOLOGIC: Negative Blood Disorders or Sickle Cell Disease PSYCHO/SOCIAL: Positive Depression OTHER HISTORY: Positive Hospitalization, Radiation Therapy, Measles, Mumps, Cancer and Breast Cancer; Negative Blood Transfusions or Anesthesia Reactions Family History FAMILY HISTORY: Negative Family Cardiac Disorders Surgical History SURGICAL: Positive Cardiac Surgery, Coronary Artery Bypass Graft, Coronary Stent, Joint Replacement, Mastectomy and Section Social History SMOKING STATUS: Unknown if ever smoked Past Medical History Comments PMH COMMENT: History of left breast CA status post partial mastectomy radiation; hypercalcemia history of coronary artery disease status post CABG Exam Vital Signs Temp Pulse Resp BP Pulse Ox O2 Del Method O2 Flow Rate 97.0 F 71 19 122/89 H 95 Nasal Cannula 1 04/16/24 12:00 04/16/24 12:00 04/16/24 12:00 04/16/24 12:00 04/16/24 12:00 04/16/24 12:00 04/16/24 12:00 Narrative Exam PE: Gen: Well-developed and well-nourished. Obese. HEENT: NCAT, PERRLA, EOMI, MMM, anicteric conjunctivae. CVS: normal S1 and S2. RRR. No M/R/G. Significant scar center chest due to infected surgical site s/p CABG. Resp: CTA B/L. No rhonchi, rales, crackles or wheezing. Poor breath sounds due to body habitus. Abd: soft, non-tender, non-distended. MSK: Good ROM in BUE & BLE. No rash. Trace edema lower extremities. Neuro: Patient minimally responsive. Did not follow commands. Awake and alert. Results Labs 04/16/24 05:23 04/16/24 17:50 Labs: Short CBC 04/15/24 04/16/24 Range/Units 18:05 05:23 WBC 15.7 H 13.3 H (3.6-11.0) Thou/mm3 Hgb 16.5 H 15.1 (12.0-16.0) g/dL Hct 51.2 H 47.4 H (36.0-46.0) % Plt Count 190 142 D (140-440) Thou/mm3 BMP 04/15/24 04/15/24 04/16/24 18:05 20:20 00:28 Sodium 155 H 154 H 153 H Potassium 3.0 L Chloride 118 H Carbon Dioxide 24.9 BUN 56 H Creatinine 2.8 H Glucose 163 H Calcium 13.8 H* 12.7 H* 04/16/24 04/16/24 05:23 09:05 Sodium 155 H 156 H Potassium 3.5 D Chloride 120 H Carbon Dioxide 23.5 BUN 54 H Creatinine 2.4 H Glucose 172 H Calcium 12.3 H Cardiac Enzymes 04/15/24 04/15/24 04/16/24 Range/Units 18:05 20:20 02:06 Troponin I 0.044 0.044 0.043 (0.0-0.045) ng/mL 04/16/24 Range/Units 09:05 Troponin I 0.028 (0.0-0.045) ng/mL Liver Function 04/15/24 04/16/24 Range/Units 18:05 05:23 Total Bilirubin 0.6 0.5 (0.3-1.2) mg/dL AST 55 H 39 H (0-34) U/L ALT 42 33 (10-49) U/L Alkaline Phosphatase 65 60 (46-116) U/L Albumin 4.6 4.1 D (3.4-4.8) gm/dL Urine 04/15/24 Range/Units 18:00 Urine Color Yellow (Lt Yel-Yel) Urine Clarity Turbid A (Clear/Hazy) Urine pH 6.0 (5.0-7.0) Ur Specific [place] 1.022 (1.001-1.035) Urine Protein 3+ A (Neg - Trace) Urine Glucose (UA) Negative (Negative) ABG Interpretation ABG results: 04/15/24 21:39 ABG pH 7.40 ABG pCO2 46 ABG pO2 103 ABG HCO3 28 H ABG O2 Saturation 98 ABG Base Excess 3 Quality Measures Quality Measures VTE prophylaxis Advance care planning discussed with:: spouse Medications Home Medications and Allergies Home Medications ?Medication ?Instructions ?Recorded ?Confirmed ?Type atorvastatin 40 mg tablet (Lipitor) 80 mg PO HS #0 tabs 09/07/16 04/16/24 History omeprazole 20 mg capsule,delayed 20 mg PO QDAY ##0 09/07/16 12/24/23 History release amiodarone 200 mg tablet 200 mg PO QDAY 03/25/22 12/28/23 History anastrozole 1 mg tablet 1 mg PO QDAY 03/25/22 12/24/23 History apixaban 5 mg tablet (Eliquis) 5 mg PO BID 03/25/22 12/28/23 History hydrocodone 10 mg-acetaminophen 1 tab PO QID PRN Pain, Moderate 03/25/22 12/28/23 History 325 mg tablet memantine 10 mg tablet 5 mg PO QDAY 03/25/22 12/28/23 History pramipexole 0.5 mg tablet 0.5 mg PO HS 03/25/22 12/24/23 History alendronate 35 mg tablet 20 mg PO WMHS 08/02/23 12/24/23 History sennosides 8.6 mg tablet (Senna 8.6 mg PO QDAY 08/02/23 12/24/23 History Lax) triazolam 0.125 mg tablet 0.25 mg PO HS PRN Insomnia 08/02/23 04/16/24 History calcium 600 mg (as carbonate)-vit 1 tab PO BID 12/24/23 12/24/23 History D3 20 mcg (800 unit) chewable tablet (Caltrate plus D) nifedipine 30 mg tablet,extended 30 mg PO QDAY 12/24/23 12/24/23 History release 24 hr bisacodyl 5 mg tablet,delayed 5 mg PO BID 12/28/23 12/28/23 History release (Dulcolax (bisacodyl)) fluoxetine 20 mg capsule 20 mg PO HS 12/28/23 12/28/23 History gabapentin 600 mg tablet 100 mg PO HS 12/28/23 04/16/24 History multivitamin 1 cap PO QDAY 12/28/23 12/28/23 History sitagliptin phosphate 100 mg 100 mg PO QDAY 12/28/23 12/28/23 History tablet (Januvia) Allergies Allergy/AdvReac Type Severity Reaction Status Date / Time meperidine Allergy Mild VOMITING Verified 03/26/22 08:51 tetracycline Allergy Mild RASH Verified 03/26/22 08:51 Visit Medications Acetaminophen (Acetaminophen 325 Mg Tablet) 650 mg PO Q6H PRN PRN Reason: PAIN OR FEVER > 101 Stop: 05/15/24 19:49 Hydrocodone Bitart/Acetaminophen (Hydrocodone/Apap 10/325 Tab) 1 tab PO Q6HR PRN PRN Reason: PAIN SCALE 4-10(Mod-Sev Stop: 04/20/24 19:53 Amiodarone HCl (Amiodarone Hcl 200 Mg Tablet) 200 mg PO QDAY SABINA Stop: 05/16/24 08:59 Last Admin: 04/16/24 09:20 Dose: Not Given Apixaban (Apixaban 2.5 Mg Tablet) 5 mg PO BID SABINA Stop: 05/15/24 20:59 Last Admin: 04/16/24 09:21 Dose: Not Given Dextrose (Dextrose 50%-Water Inj 50 Ml Syringe) 25 ml IV Q15MIN PRN PRN Reason: BG 50-70 responsive npo pt Stop: 05/15/24 19:55 Dextrose (Dextrose 50%-Water Inj 50 Ml Syringe) 50 ml IV Q15MIN PRN PRN Reason: BG <50 OR BG <70 & pt unresponsive Stop: 05/15/24 19:55 Glucagon (Glucagon Inj 1 Mg Vial) 1 mg IM Q15MIN PRN PRN Reason: BG <70, and no IV access Hydralazine HCl (Hydralazine Inj 20 Mg/Ml Vial) 10 mg IV Q6H PRN PRN Reason: sbp>160 Stop: 05/16/24 05:29 Ceftriaxone Sodium/Dextrose (Rocephin/D5w 1gm Iv Premix) 50 mls @ 100 mls/hr IV QDAY SABINA Stop: 04/23/24 08:59 Last Admin: 04/16/24 09:20 Dose: 100 mls/hr Dextrose (D5w) 1,000 mls @ 100 mls/hr IV .Q10H SABINA Stop: 04/17/24 06:44 Last Admin: 04/16/24 06:45 Dose: 100 mls/hr Insulin Human Lispro (Insulin Lispro (Admelog) 1 Unit/0.01 Ml Unit) 0 unit SC Q6HR SABINA; Protocol Stop: 05/16/24 00:14 Last Admin: 04/16/24 12:05 Dose: 2 unit Ondansetron HCl (Ondansetron Inj 2 Mg/Ml Inj 2 Ml) 4 mg IV Q6H PRN; Protocol PRN Reason: NAUSEA OR VOMITING Stop: 05/15/24 19:49 Pantoprazole Sodium (Pantoprazole Inj 40 Mg Vial) 40 mg IVP QDAY COUNT INCLUDES THE [facility] Stop: 05/16/24 08:59 Last Admin: 04/16/24 09:19 Dose: 40 mg Sennosides (Senna Tablet) 1 tab PO QDAY COUNT INCLUDES THE [facility]; Protocol Stop: 05/16/24 08:59 Last Admin: 04/16/24 09:21 Dose: Not Given Discontinued Medications Calcitonin [place] (Calcitonin, [place] Synth Inj 1 Unit/0.005 Ml Vial) 400 unit SC X1 ONE Stop: 04/16/24 00:32 Last Admin: 04/16/24 01:17 Dose: 400 unit Denosumab (Denosumab Inj 60 Mg/Ml Syringe) 60 mg SC X1 SABINA Stop: 05/15/24 21:44 Denosumab (Denosumab Inj 60 Mg/Ml Syringe) 60 mg SC X1 ONE Stop: 04/16/24 01:01 Last Admin: 04/16/24 12:05 Dose: 60 mg Hydralazine HCl (Hydralazine Inj 20 Mg/Ml Vial) 10 mg IV Q6H PRN PRN Reason: Blood Pressure - High Stop: 05/16/24 05:29 Last Admin: 04/16/24 05:35 Dose: 10 mg Sodium Chloride (Ns) 1,000 mls @ 100 mls/hr IV .Q10H SABINA Stop: 04/16/24 17:57 Last Admin: 04/15/24 18:43 Dose: 100 mls/hr Ceftriaxone Sodium/Dextrose (Rocephin/D5w 1gm Iv Premix) 50 mls @ 100 mls/hr IV X1 ONE Stop: 04/15/24 19:22 Last Admin: 04/15/24 19:20 Dose: 100 mls/hr Potassium Chloride (Kcl Ivpb) 10 meq in 100 mls @ 100 mls/hr IV Q1H SABINA Stop: 04/15/24 23:18 Last Admin: 04/16/24 02:03 Dose: 90 mls/hr Sodium Chloride (Ns) 1,000 mls @ 100 mls/hr IV .Q10H SABINA Stop: 04/16/24 15:59 Last Admin: 04/15/24 23:46 Dose: Not Given Sodium Chloride (Ns) 1,000 mls @ 150 mls/hr IV .Q6H40M SABINA Stop: 04/16/24 21:00 Last Admin: 04/16/24 02:56 Dose: 150 mls/hr Insulin Human Lispro (Insulin Lispro (Admelog) 1 Unit/0.01 Ml Unit) 0 unit SC ACHS SABINA; Protocol Stop: 05/15/24 20:59 Last Admin: 04/15/24 22:46 Dose: Not Given Pamidronate Disodium (Pamidronate Inj 90 Mg/10 Ml Vial) 90 mg IV X1 ONE Stop: 04/15/24 19:53 Last Admin: 04/16/24 03:01 Dose: Not Given Assessment & Plan Plan Ms. Haque is a 73-year-old female with past medical history of dementia, CABG (2018,left breast cancer s/p partial mastectomy), hypertension and Hx of hypercalcemia presents to ED accompanied with with chief complaints of altered mental status. #WILLIAM Likely prerenal azotemia due to dehydration. BUN 54, creatinine 2.4, eGFR 21, improving from initial admission labs. Patient on IVF, D5W. Plan: -Avoid nephrotoxic agents -Renally dose medications -IV fluids, D5W. -Will continue to monitor #Hypercalcemia, likely related to immobilization #Hypernatremia Patient presents with corrected calcium 12.3, phosphorus 3.5, magnesium 2.4. PTH 47.3. Patient is functionally bedbound. Sodium 155. Currently receiving IVF with D5W. CT head was unremarkable. -Continue IVF with D5W. -Monitor daily labs -Denosumab #Hx of breast cancer s/p mastectomy #DM type II #hx of DVT and PE #s/p CABG #HTN #HLD #Hx of dementia #Hx of RLS Management as per primary team. Thank you for allow me to participate in the care of this patient. Plan of care discussed with attending Dr. Tadeo. Jaime Lopez MD PGY-1 Attending Provider Attestation/Addendum Patient seen and examined with resident physician Dr. Lopez. Note reviewed, agree with findings and recommendations. Patient well-known to me from previous admissions for similar episodes of WILLIAM, electrolyte imbalance. is a sole care provider. Currently she is completely lethargic and barely arousable. Continue with gentle IV fluids. Will monitor her renal function, electrolytes closely. Thank you Dustin for allowing me to participate in the care of Ms. Patterson. at bedside. I will be away on vacation starting 04/17/2024 through 04/21/2024. Dr Correia will be covering for me.
--- NOTE | 2024-04-16 13:30 | ESPR_ITS ---
Documentation for date of: 04/16/24 Subjective Subjective Interval history: Patient seen at bedside. No acute overnight events. She is a 73-year-old female with a past medical history of CAD status post CABG, breast cancer status post partial mastectomy and radiation, hypercalcemia and recurrent UTIs who presented to the ED accompanied by with complaints of altered mental status that has really started about 3 weeks ago progressively worsened in the last couple days. ED labs were significant for leukocytosis, hyponatremia, hyperkalemia with WILLIAM- creatinine of 2.8. UA was consistent with UTI and U-Tox positive for opioids. Imaging was done which was negative for acute processes. The patient was given 1 L bolus of NS in the ED and started on IV ceftriaxone, admitted for management of acute encephalopathy( infectious versus metabolic) in the setting of dehydration versus malignancy versus UTI. Today at bedside, per patient's , she is better than she has been for few days, patient is still AAO x 0 but able to respond to her name. Labs showed improving calcium-12.3 today, patient has received IV fluids, calcitonin and will be receiving Prolia. Pending blood and urine cultures. Nephrology and oncology on board. Exam Vital Signs Temp Pulse Resp BP Pulse Ox O2 Del Method O2 Flow Rate 97.0 F 71 19 122/89 H 95 Nasal Cannula 1 04/16/24 12:00 04/16/24 12:00 04/16/24 12:00 04/16/24 12:00 04/16/24 12:00 04/16/24 12:00 04/16/24 12:00 Narrative Exam GENERAL: AAOX0, responds to name but seems lethargic/somnolent NEURO: No focal neurologic deficits HEENT: Dry mucosa. Eyes open, symmetrical, & clear CARDIO: Scar seein middle of chest from CABG.No chest pain on palpation. Heart RRR, no obvious murmurs PULM: No noted coughing/dyspnea. Lungs CTA B/L GI: Abdomen soft, nondistended, no pain on palpation. BSx4 URO/MD PSYCHIATRY:: No further abnormalities noted. SKIN/MSK/EXT: No wounds/rashes/edema/amputations, no pain on palpation. Pedal pulses present B/L Objective Labs 04/17/24 06:35 04/17/24 12:47 Labs: Laboratory Results - last 24 hr 1104/15/24 04/15/24 18:00 18:05 20:20 WBC 15.7 H RBC 5.71 H Hgb 16.5 H Hct 51.2 H MCV 90 MCH 28.9 MCHC 32.2 RDW Std Deviation 46.9 H Plt Count 190 Neut % (Auto) 65 Lymph % (Auto) 27 [place] % (Auto) 7 Eos % (Auto) 0 Baso % (Auto) 0 Neut # (Auto) 10.2 H Lymph # (Auto) 4.2 [place] # (Auto) 1.1 H Eos # (Auto) 0.0 Baso # (Auto) 0.1 Immature Gran # (Auto) 0.06 H Absolute Nucleated RBC 0.00 Immature Gran % 0 Nucleated RBC % 0 PT 13.0 H INR 1.2 APTT 25.0 Puncture Site ABG pH ABG pCO2 ABG pO2 ABG HCO3 ABG O2 Saturation ABG Base Excess Oxygen Liter Flow Sodium 155 H 154 H Potassium 3.0 L Chloride 118 H Carbon Dioxide 24.9 Anion Gap 12 BUN 56 H Creatinine 2.8 H Estim Creat Clear Calc 20.5 L eGFR 17 L BUN/Creatinine Ratio [address]ucose [address] Glu mg/dL Hemoglobin A1c Calculated Osmolality 326 H Lactic Acid 1.2 Calcium 13.8 H* Corrected Calcium 13.8 H* Phosphorus Magnesium 2.6 Total Bilirubin 0.6 AST 55 H ALT 42 Alkaline Phosphatase 65 Lactate Dehydrogenase 236 Troponin I 0.044 0.044 B-Natriuretic Peptide 94 Total Protein 7.9 Albumin 4.6 Globulin 3.3 Albumin/Globulin Ratio 1.4 Triglycerides Cholesterol LDL Cholesterol, Calc HDL Cholesterol Cholesterol/HDL Ratio Procalcitonin 0.28 TSH PTH Intact Ur Collection Type Clean Catch Urine Color Yellow Urine Clarity Turbid A Urine pH 6.0 Ur Specific [place] 1.022 Urine Protein 3+ A Urine Glucose (UA) Negative Urine Ketones Negative Urine Blood Trace Urine Nitrite Negative Urine Bilirubin Negative Urine Urobilinogen (Auto) Negative Ur Leukocyte Esterase Positive Urine RBC 3 Urine WBC 145 H Ur Squamous Epith Cells 3 Urine Bacteria 4+ A Hyaline Casts < 1 Urine Opiates Screen Positive A Urine Fentanyl Screen Negative Ur Barbiturates Screen Negative U Amphetamin/Meth Scrn Negative U Benzodiazepines Scrn Negative U Cocaine Metab Screen Negative U Marijuana (THC) Screen Negative 04/15/24 04/16/24 04/16/24 21:39 00:28 02:06 WBC RBC Hgb Hct MCV MCH MCHC RDW Std Deviation Plt Count Neut % (Auto) Lymph % (Auto) [place] % (Auto) Eos % (Auto) Baso % (Auto) Neut # (Auto) Lymph # (Auto) [place] # (Auto) Eos # (Auto) Baso # (Auto) Immature Gran # (Auto) Absolute Nucleated RBC Immature Gran % Nucleated RBC % PT INR APTT Puncture Site Right Brachial ABG pH 7.40 ABG pCO2 46 ABG pO2 103 ABG HCO3 28 H ABG O2 Saturation 98 ABG Base Excess 3 Oxygen Liter Flow 3 Sodium 153 H Potassium Chloride Carbon Dioxide Anion Gap BUN Creatinine Estim Creat Clear Calc eGFR BUN/Creatinine Ratio Glucose Estimated Ave Glu mg/dL Hemoglobin A1c Calculated Osmolality Lactic Acid Calcium 12.7 H* Corrected Calcium Phosphorus Magnesium Total Bilirubin AST ALT Alkaline Phosphatase Lactate Dehydrogenase Troponin I 0.043 B-Natriuretic Peptide Total Protein Albumin Globulin Albumin/Globulin Ratio Triglycerides Cholesterol LDL Cholesterol, Calc HDL Cholesterol Cholesterol/HDL Ratio Procalcitonin TSH PTH Intact Ur Collection Type Urine Color Urine Clarity Urine pH Ur Specific [place] Urine Protein Urine Glucose (UA) Urine Ketones Urine Blood Urine Nitrite Urine Bilirubin Urine Urobilinogen (Auto) Ur Leukocyte Esterase Urine RBC Urine WBC Ur Squamous Epith Cells Urine Bacteria Hyaline Casts Urine Opiates Screen Urine Fentanyl Screen Ur Barbiturates Screen U Amphetamin/Meth Scrn U Benzodiazepines Scrn U Cocaine Metab Screen U Marijuana (THC) Screen 04/16/24 04/16/24 05:23 09:05 WBC 13.3 H RBC 5.18 Hgb 15.1 Hct 47.4 H MCV 92 MCH 29.2 MCHC 31.9 RDW Std Deviation 48.4 H Plt Count 142 D Neut % (Auto) 67 Lymph % (Auto) 24 [place] % (Auto) 7 Eos % (Auto) 1 Baso % (Auto) 0 Neut # (Auto) 9.0 H Lymph # (Auto) 3.3 [place] # (Auto) 0.9 H Eos # (Auto) 0.1 Baso # (Auto) 0.0 Immature Gran # (Auto) 0.08 H Absolute Nucleated RBC 0.00 Immature Gran % 1 H Nucleated RBC % 0 PT INR APTT Puncture Site ABG pH ABG pCO2 ABG pO2 ABG HCO3 ABG O2 Saturation ABG Base Excess Oxygen Liter Flow Sodium 155 H 156 H Potassium 3.5 D Chloride 120 H Carbon Dioxide 23.5 Anion Gap 12 BUN 54 H Creatinine 2.4 H Estim Creat Clear Calc 24.4 L eGFR 21 L BUN/Creatinine Ratio 23 H Glucose [address] Glu mg/dL 126 Hemoglobin A1c 6.0 Calculated Osmolality 326 H Lactic Acid Calcium 12.3 H Corrected Calcium 12.3 H D Phosphorus 3.5 Magnesium 2.4 Total Bilirubin 0.5 AST 39 H ALT 33 Alkaline Phosphatase 60 Lactate Dehydrogenase Troponin I 0.028 B-Natriuretic Peptide Total Protein 7.2 Albumin 4.1 D Globulin 3.1 Albumin/Globulin Ratio 1.3 Triglycerides 273 H Cholesterol 161 LDL Cholesterol, Calc 84 HDL Cholesterol 22 L Cholesterol/HDL Ratio 7.3 H Procalcitonin TSH 0.49 L PTH Intact 47.3 Ur Collection Type Urine Color Urine Clarity Urine pH Ur Specific [place] Urine Protein Urine Glucose (UA) Urine Ketones Urine Blood Urine Nitrite Urine Bilirubin Urine Urobilinogen (Auto) Ur Leukocyte Esterase Urine RBC Urine WBC Ur Squamous Epith Cells Urine Bacteria Hyaline Casts Urine Opiates Screen Urine Fentanyl Screen Ur Barbiturates Screen U Amphetamin/Meth Scrn U Benzodiazepines Scrn U Cocaine Metab Screen U Marijuana (THC) Screen ABG Interpretation ABG results: 04/15/24 21:39 ABG pH 7.40 ABG pCO2 46 ABG pO2 103 ABG HCO3 28 H ABG O2 Saturation 98 ABG Base Excess 3 Quality Measures Quality Measures VTE prophylaxis Advance care planning discussed with:: spouse Assessment & Plan Assessment Current Active Medications: Generic Name Dose Route Start Last Admin Trade Name Freq PRN Reason Stop Dose Admin Acetaminophen 650 mg 04/15/24 19:50 Acetaminophen 325 Mg Tablet PO 05/15/24 19:49 Q6H PRN PAIN OR FEVER > 101 Hydrocodone Bitart/Acetaminophen 1 tab 04/15/24 19:54 Hydrocodone/Apap 10/325 Tab PO 04/20/24 19:53 Q6HR PRN PAIN SCALE 4-10(Mod-Sev Amiodarone HCl 200 mg 04/16/24 09:00 04/16/24 09:20 Amiodarone Hcl 200 Mg Tablet PO 05/16/24 08:59 Not Given QDAY SABINA Apixaban 5 mg 04/15/24 21:00 04/16/24 09:21 Apixaban 2.5 Mg Tablet PO 05/15/24 20:59 Not Given BID SABINA Dextrose 25 ml 04/15/24 19:56 Dextrose 50%-Water Inj 50 Ml Syringe IV 05/15/24 19:55 Q15MIN PRN BG 50-70 responsive npo pt Dextrose 50 ml 04/15/24 19:56 Dextrose 50%-Water Inj 50 Ml Syringe IV 05/15/24 19:55 Q15MIN PRN BG <50 OR BG <70 & pt unresponsive Glucagon 1 mg 04/15/24 19:56 Glucagon Inj 1 Mg Vial IM Q15MIN PRN BG <70, and no IV access Hydralazine HCl 10 mg 04/16/24 10:01 Hydralazine Inj 20 Mg/Ml Vial IV 05/16/24 05:29 Q6H PRN sbp>160 Ceftriaxone Sodium/Dextrose 50 mls @ 100 mls/hr 04/16/24 09:00 04/16/24 09:20 Rocephin/D5w 1gm Iv Premix IV 04/23/24 08:59 100 mls/hr QDAY SABINA Administration Dextrose 1,000 mls @ 100 mls/hr 04/16/24 06:45 04/16/24 06:45 D5w IV 04/17/24 06:44 100 mls/hr .Q10H SABINA Administration Insulin Human Lispro 0 unit 04/16/24 00:15 04/16/24 12:05 Insulin Lispro (Admelog) 1 Unit/0.01 Ml Unit SC 05/16/24 00:14 2 unit Q6HR SABINA Administration Protocol Ondansetron HCl 4 mg 04/15/24 19:50 Ondansetron Inj 2 Mg/Ml Inj 2 Ml IV 05/15/24 19:49 Q6H PRN NAUSEA OR VOMITING Protocol Pantoprazole Sodium 40 mg 04/16/24 09:00 04/16/24 09:19 Pantoprazole Inj 40 Mg Vial IVP 05/16/24 08:59 40 mg QDAY SABINA Administration Sennosides 1 tab 04/16/24 09:00 04/16/24 09:21 Senna Tablet PO 05/16/24 08:59 Not Given QDAY SABINA Protocol Plan Summary: The patient is a 73-year-old female with past medical history of CABG complicated with wound infection, subsequently had operative debridement and wound VAC was placed, has a wide deep scar in the middle of the chest, history of partial mastectomy due to breast cancer, completed full course of radiation in 2021, history of recurrent UTIs, dementia, history of hypercalcemia of malignancy was admitted for acute metabolic encephalopathy most likely secondary due to hypercalcemia, dehydration, UTI, versus worsening baseline dementia. #Acute metabolic encephalopathy in the setting of UTI and hypercalcemia versus worsening baseline dementia #Hypercalcemia in the setting of dehydration versus malignancy related hypercalcemia #Dehydration #UTI #WILLIAM most likely prerenal in the setting of dehydration Patient presented with worsening baseline mentation Patient has a history of hypercalcemia most likely secondary due to malignancy, and recently has been taking vitamin D/calcium vitamins also stated that for the last week patient had very poor oral intake was not eating and drinking enough CT head was negative for any hemorrhage, mass or midline shift Labs revealed hypercalcemia with calcium of 13.8, sodium 155, chloride is 118, hemoglobin is 16.5, hematocrit 51.2, WILLIAM with creatinine of 2.8, BUN 15 6, all this labs consistent with severe dehydration, hemoconcentration. Patient received 1 L bolus of NS and is currently on D5W at 100 cc/h. She also received IV calcitonin x 1 and has not received Prolia. For UTI, patient is on IV ceftriaxone. Will continue IV fluids and monitor calcium levels as well as follow-up blood and urine cultures. Plan: -Continue IV fluids -Continue IV ceftriaxone -Follow-up blood and urine cultures -Aspiration precaution -Keep n.p.o. until swallow eval passed -Speech swallow eval -Nephrology consulted, appreciate recommendations Hypernatremia #Hypokalemia Admitting potassium-3.0. Today, potassium is 3.5. Admitting sodium-155 with osmolality of 326. Plan: -Continue IV fluids D5W at 100 cc/h -Continue to monitor CMP with sodium checks every 4 hours -Replete electrolytes as indicated # History of type II DM Patient was on home Ozempic A1c-6 -Insulin sliding scale -hypoglycemic protocole is placed -monitor BS #History of DVT and PE Patient is on eliquis 5mg BID Wells score for PE 4.0 moderate risk -will resume after swallow eval is passed # History of CAD s/p CABG #HTN #HLD BP under control -will resume atorvastatin after swallow eval is passed #Hx of dementia - Patient is on memantine -Will resume after swallow eval is passed #Hx of RLS -Patient is on pramipexole Will resume after swallow eval is passed #History of breast cancer s/p mastectomy and radiation MRI which was done in 12/30/2023 showed increased white matter signal in the posterior oral right temporal parietal lobe with septal enhancement of the cortex. they have been trying to get an appointment with Dr. Uriostegui, but bc of transportation issues they did not succeed Plan: -Oncology consulted, appreciate recommendations Disposition: Telemetry DVT prophylaxis: Eliquis GI prophylaxis: PPI Diet: NPO, pending speech eval Lines: PIV CODE STATUS:DNR Case was discussed with attending physician, Dr hSin Judge MD PGY-1 Attending Provider Attestation/Addendum I have discussed and was present for the essential components of the history, physical examination, diagnosis, and treatment plan with the resident. I agree with the patient's care as documented by the resident and amended herein by me. Dustin Melissa DO. Although this document has been carefully reviewed, there may still be some phonetic and other typographical errors. These errors are purely grammatical due to imperfections in the software program and should not be construed in any way to compromise the substance of the patient's medical care during this visit.
--- NOTE | 2024-04-16 14:07 | PD.ONCCONS ---
HPI Data of Consult Consult date: 04/16/24 Requesting Physician: Delmer Melissa DO Primary Care Provider: Physician No Primary/Family Consult Narrative Reason for consult: Change in mental status with hypercalcemia in patient with breast cancer History of present illness: Patient is a 73-year-old well-known to us at the cancer center with history of left breast CA stage IIa status post partial mastectomy and postop radiotherapy delivered in August 2022. Thus far there has been no documented evidence of metastasis. Patient was admitted with hypercalcemia and change in mental status improved with hydration and calcium lowering agents. Patient failed to see me for outpatient visits. Upon admissions patient's calcium was 12.7 with 12.3 corrected with elevated sodium of 155. Head CT 04/15/2024 negative for acute hemorrhage mass effect or midline shift. Had prior MRI of brain 12/28/2023 suspicious for 29 x 12 mm enhancing lesion left parietal convexity. There was increased white matter signal which could be seen in cerebritis and encephalopathy on MRI brain 2 days later. Patient has been receiving hydration along with calcium lowering agents. cc:: cc: Delmer Melissa DO Past Medical History Past Medical History Comments PMH COMMENT: History of left breast CA status post partial mastectomy radiation; hypercalcemia history of coronary artery disease status post CABG Meds Home Medications and Allergies Home Medications ?Medication ?Instructions ?Recorded ?Confirmed ?Type atorvastatin 40 mg tablet (Lipitor) 80 mg PO HS #0 tabs 09/07/16 04/16/24 History omeprazole 20 mg capsule,delayed 20 mg PO QDAY ##0 09/07/16 12/24/23 History release amiodarone 200 mg tablet 200 mg PO QDAY 03/25/22 12/28/23 History anastrozole 1 mg tablet 1 mg PO QDAY 03/25/22 12/24/23 History apixaban 5 mg tablet (Eliquis) 5 mg PO BID 03/25/22 12/28/23 History hydrocodone 10 mg-acetaminophen 1 tab PO QID PRN Pain, Moderate 03/25/22 12/28/23 History 325 mg tablet memantine 10 mg tablet 5 mg PO QDAY 03/25/22 12/28/23 History pramipexole 0.5 mg tablet 0.5 mg PO HS 03/25/22 12/24/23 History alendronate 35 mg tablet 20 mg PO WMHS 08/02/23 12/24/23 History sennosides 8.6 mg tablet (Senna 8.6 mg PO QDAY 08/02/23 12/24/23 History Lax) triazolam 0.125 mg tablet 0.25 mg PO HS PRN Insomnia 08/02/23 04/16/24 History calcium 600 mg (as carbonate)-vit 1 tab PO BID 12/24/23 12/24/23 History D3 20 mcg (800 unit) chewable tablet (Caltrate plus D) nifedipine 30 mg tablet,extended 30 mg PO QDAY 12/24/23 12/24/23 History release 24 hr bisacodyl 5 mg tablet,delayed 5 mg PO BID 12/28/23 12/28/23 History release (Dulcolax (bisacodyl)) fluoxetine 20 mg capsule 20 mg PO HS 12/28/23 12/28/23 History gabapentin 600 mg tablet 100 mg PO HS 12/28/23 04/16/24 History multivitamin 1 cap PO QDAY 12/28/23 12/28/23 History sitagliptin phosphate 100 mg 100 mg PO QDAY 12/28/23 12/28/23 History tablet (Januvia) Allergies Allergy/AdvReac Type Severity Reaction Status Date / Time meperidine Allergy Mild VOMITING Verified 03/26/22 08:51 tetracycline Allergy Mild RASH Verified 03/26/22 08:51 Exam Vital Signs Temp Pulse Resp BP Pulse Ox O2 Del Method O2 Flow Rate 97.0 F 71 19 122/89 H 95 Nasal Cannula 1 04/16/24 12:00 04/16/24 12:00 04/16/24 12:00 04/16/24 12:00 04/16/24 12:00 04/16/24 12:00 04/16/24 12:00 Narrative Exam Patient appears comfortable but obtunded not able to respond to questions. Results Labs 04/16/24 05:23 04/16/24 09:05 Labs: Short CBC 04/15/24 04/16/24 Range/Units 18:05 05:23 WBC 15.7 H 13.3 H (3.6-11.0) Thou/mm3 Hgb 16.5 H 15.1 (12.0-16.0) g/dL Hct 51.2 H 47.4 H (36.0-46.0) % Plt Count 190 142 D (140-440) Thou/mm3 BMP 04/15/24 04/15/24 04/16/24 18:05 20:20 00:28 Sodium 155 H 154 H 153 H Potassium 3.0 L Chloride 118 H Carbon Dioxide 24.9 BUN 56 H Creatinine 2.8 H Glucose 163 H Calcium 13.8 H* 12.7 H* 04/16/24 04/16/24 05:23 09:05 Sodium 155 H 156 H Potassium 3.5 D Chloride 120 H Carbon Dioxide 23.5 BUN 54 H Creatinine 2.4 H Glucose 172 H Calcium 12.3 H Cardiac Enzymes 04/15/24 04/15/24 04/16/24 Range/Units 18:05 20:20 02:06 Troponin I 0.044 0.044 0.043 (0.0-0.045) ng/mL 04/16/24 Range/Units 09:05 Troponin I 0.028 (0.0-0.045) ng/mL Liver Function 04/15/24 04/16/24 Range/Units 18:05 05:23 Total Bilirubin 0.6 0.5 (0.3-1.2) mg/dL AST 55 H 39 H (0-34) U/L ALT 42 33 (10-49) U/L Alkaline Phosphatase 65 60 (46-116) U/L Albumin 4.6 4.1 D (3.4-4.8) gm/dL Urine 04/15/24 Range/Units 18:00 Urine Color Yellow (Lt Yel-Yel) Urine Clarity Turbid A (Clear/Hazy) Urine pH 6.0 (5.0-7.0) Ur Specific [place] 1.022 (1.001-1.035) Urine Protein 3+ A (Neg - Trace) Urine Glucose (UA) Negative (Negative) ABG Interpretation ABG results: 04/15/24 21:39 ABG pH 7.40 ABG pCO2 46 ABG pO2 103 ABG HCO3 28 H ABG O2 Saturation 98 ABG Base Excess 3 Assessment and Plan Additional Assessment & Plan Additional Plan: 1, History of stage I left breast CA status post partial mastectomy and postop radiation completed year ago. 2. There is no evidence of recurrence among various imaging studies or clinically thus far. 3. Hypercalcemia appears chronic, noted for months, and not malignancy related. 4. There was subtle findings on MRI of the brain 3 months ago which needs to be pursued but currently creatinine too elevated to do it with contrast. 5. Will follow.
--- NOTE | 2024-04-16 14:22 | PC.SS ---
Rounding Note: Plan is to treat patient's WILLIAM. D/C within 1-2 days.
[2024-04-16 15:05] LABS: Sodium 154 mMol/L (136-145)
[2024-04-16 18:23] LABS: Sodium 153 mMol/L (136-145)
[2024-04-16] MEDS: APIXABAN 2.5 MG TABLET 5 MG PO (20:36)
[2024-04-16 22:39] LABS: Sodium 152 mMol/L (136-145)
[2024-04-17] VITALS (8 sets, daily range): BP systolic 118–185; BP diastolic 78–114; PULSE 62–72; RESP 13–19; TEMP 36.1–37.2; O2SAT 95–98
[2024-04-17 02:56] LABS: Sodium 150 mMol/L (136-145)
[2024-04-17] MEDS: DEXTROSE 5%-WATER 1,000 ML 100 ML IV (04:12)
[2024-04-17] MEDS: INSULIN LISPRO (AdmeLOG) 1 UNIT/0.01 ML UNIT SC ×3 (05:10→17:40)
[2024-04-17 06:55] LABS: Basophils % (Auto) 0 % (0-2.5); Eosinophils # (Auto) 0.1 Thou/mm3 (0.0-0.5); Eosinophils % (Auto) 1 % (0-10); Hematocrit 42.4 % (36.0-46.0); Hemoglobin 13.7 g/dL (12.0-16.0); Immature Granulocytes % (Auto) 0 % (0-0); Immature Granulocytes Auto 0.06 Thou/mm3 (0.00-0.00); Lymphocytes # (Auto) 3.2 Thou/mm3 (1.0-4.8); Lymphocytes % (Auto) 23 % (10-50); Mean Corpuscular HGB Conc 32.3 g/dl (31.0-37.0); Mean Corpuscular Hemoglobin 29.2 pg (25.0-35.0); Mean Corpuscular Volume 90 fL (80-100); Monocytes # (Auto) 0.7 Thou/mm3 (0.0-0.8); Monocytes % (Auto) 5 % (0-12); Neutrophils # (Auto) 9.8 Thou/mm3 (1.8-7.7); Neutrophils % (Auto) 70 % (37-80); Nucleated Red Blood Cell % 0 /100 WBC (0); Platelet Count 126 Thou/mm3 (140-440); RDW Standard Deviation 47.1 fL (36.4-46.3); Red Blood Count 4.69 Miln/mm3 (4.00-5.20); White Blood Count 13.9 Thou/mm3 (3.6-11.0)
[2024-04-17 08:37] LABS: Alanine Aminotransferase 31 U/L (10-49); Albumin, Serum 4.1 gm/dL (3.4-4.8); Albumin/Globulin Ratio 1.4 (1.2-2.2); Alkaline Phosphatase 60 U/L (46-116); Anion Gap 9 (7-16); Aspartate Amino Transferase 22 U/L (0-34); BUN/Creatinine Ratio 27 Ratio (12-20); Bilirubin,Total 0.6 mg/dL (0.3-1.2); Blood Urea Nitrogen 53 mg/dL (9-23); Calcium 11.3 mg/dL (8.3-10.6); Calcium (Corrected) 11.3 mg/dL (8.5-10.1); Carbon Dioxide 25.2 mMol/L (20.0-31.0); Chloride 115 mMol/L (98-107); Estimated Creatinine Clearance 28.8 mL/min (>60); Globulin 2.9 gm/dL (2.3-3.5); Glucose 180 mg/dL (74-106); Osmolality,Calculated 315 (275-295); Phosphorous 2.1 mg/dL (2.4-5.1); Potassium 2.8 mMol/L (3.4-5.1); Sodium 149 mMol/L (136-145); eGFR 26 See Note
[2024-04-17] MEDS: cefTRIAXone/D5w 1gm IV premix 50 ML IV (08:46)
[2024-04-17] MEDS: PANTOPRAZOLE INJ 40 MG VIAL IVP (09:01)
[2024-04-17] MEDS: POT CHL ADDITIVE 40 MEQ in DEXTROSE 5%-WATER 1,000 ML 100 MEQ IV ×2 (10:07→21:54)
[2024-04-17] MEDS: MEROPENEM INJ 1,000 MG in SODIUM CHLORIDE 0.9% (P) 50 ML 100 MG IV ×2 (12:01→23:58)
[2024-04-17 13:13] LABS: Sodium 144 mMol/L (136-145)
[2024-04-17 14:33] LABS: Anion Gap 8 (7-16); BUN/Creatinine Ratio 25 Ratio (12-20); Blood Urea Nitrogen 47 mg/dL (9-23); Calcium 10.8 mg/dL (8.3-10.6); Carbon Dioxide 23.7 mMol/L (20.0-31.0); Chloride 113 mMol/L (98-107); Creatinine (Component) 1.9 mg/dL (0.6-1.3); Estimated Creatinine Clearance 30.3 mL/min (>60); Glucose 227 mg/dL (74-106); Osmolality,Calculated 307 (275-295); Potassium 3.7 mMol/L (3.4-5.1); Sodium 145 mMol/L (136-145); eGFR 28 See Note
--- NOTE | 2024-04-17 14:40 | ESPR_ITS ---
<Statement entered by Meghan Franco DO - 04/17/24 19:22> Senior attestation: Patient was examined and case was reviewed with team including attending physician. Note reviewed, I agree with most of its contents and agree with the patient's care. Patient is able to same her name however appears lethargic and takes time to say name. Hypocalemia and hypernatremia improving. Urine cultuers reveal ESBL Ecoli, will switch abx to merem. Oncology team following, advises MRI brain when kidney function allows. Meghan Franco DO PGY-3 Documentation for date of: 04/17/24 Subjective Subjective Interval history: Patient seen at bedside. No acute overnight events. Today, patient seems a little more lethargic and drowsy, struggling to keep her eyes open. When asked, she does say that she did not get enough sleep at night. Mentation morales, the patient is AAOx0, responsive her name and is able to say her name but otherwise is not oriented. The patient received Prolia yesterday for management of hypercalcemia, calcium improved today- 11.3. She was also reviewed by oncologist Dr. Uriostegui who has seen patient in the past admission but had not seen her for follow-up yet. On labs today, hypernatremia is resolving with sodium of 149, creatinine is improved to 2.0 and she also has a hypokalemia of 2.8. Will replete electrolytes and repeat renal panel. Continue IV fluid D5W with KCl. Urine culture returned positive for ESBL with sensitivity to meropenem, will DC IV ceftriaxone and commence meropenem. Exam Vital Signs Temp Pulse Resp BP Pulse Ox O2 Del Method O2 Flow Rate 98.1 F 62 19 145/84 H 98 Nasal Cannula 1 04/17/24 12:00 04/17/24 12:00 04/17/24 12:00 04/17/24 12:00 04/17/24 12:00 04/17/24 12:00 04/17/24 12:00 Narrative Exam GENERAL: AAOX0, responds to name but seems lethargic/somnolent NEURO: No focal neurologic deficits HEENT: Dry mucosa. Eyes open, symmetrical, & clear CARDIO: Scar seein middle of chest from CABG.No chest pain on palpation. Heart RRR, no obvious murmurs PULM: No noted coughing/dyspnea. Lungs CTA B/L GI: Abdomen soft, nondistended, no pain on palpation. BSx4 URO/HOG COOLER:: No further abnormalities noted. SKIN/MSK/EXT: No wounds/rashes/edema/amputations, no pain on palpation. Pedal pulses present B/L Objective Labs 04/22/24 05:44 04/22/24 05:44 Labs: Laboratory Results - last 24 hr 04/16/24 04/16/24 04/16/24 14:27 17:50 22:18 WBC RBC Hgb Hct MCV MCH MCHC RDW Std Deviation Plt Count Neut % (Auto) Lymph % (Auto) Roosevelt % (Auto) Eos % (Auto) Baso % (Auto) Neut # (Auto) Lymph # (Auto) Roosevelt # (Auto) Eos # (Auto) Baso # (Auto) Immature Gran # (Auto) Absolute Nucleated RBC Immature Gran % Nucleated RBC % Sodium 154 H 153 H 152 H Potassium Chloride Carbon Dioxide Anion Gap BUN Creatinine Estim Creat Clear Calc eGFR BUN/Creatinine Ratio Glucose Calculated Osmolality Calcium Corrected Calcium Phosphorus Magnesium Total Bilirubin AST ALT Alkaline Phosphatase Total Protein Albumin Globulin Albumin/Globulin Ratio 04/17/24 04/17/24 04/17/24 02:05 06:35 08:02 WBC 13.9 H RBC 4.69 Hgb 13.7 Hct 42.4 MCV 90 MCH 29.2 MCHC 32.3 RDW Std Deviation 47.1 H Plt Count 126 L Neut % (Auto) 70 Lymph % (Auto) 23 Roosevelt % (Auto) 5 Eos % (Auto) 1 Baso % (Auto) 0 Neut # (Auto) 9.8 H Lymph # (Auto) 3.2 Roosevelt # (Auto) 0.7 Eos # (Auto) 0.1 Baso # (Auto) 0.0 Immature Gran # (Auto) 0.06 H Absolute Nucleated RBC 0.00 Immature Gran % 0 Nucleated RBC % 0 Sodium 150 H 149 H Potassium 2.8 L D Chloride 115 H Carbon Dioxide 25.2 Anion Gap 9 BUN 53 H Creatinine 2.0 H Estim Creat Clear Calc 28.8 L eGFR 26 L BUN/Creatinine Ratio 27 H Glucose 180 H Calculated Osmolality 315 H Calcium 11.3 H Corrected Calcium 11.3 H Phosphorus 2.1 L Magnesium 2.0 Total Bilirubin 0.6 AST 22 ALT 31 Alkaline Phosphatase 60 Total Protein 7.0 Albumin 4.1 Globulin 2.9 Albumin/Globulin Ratio 1.4 04/17/24 12:47 WBC RBC Hgb Hct MCV MCH MCHC RDW Std Deviation Plt Count Neut % (Auto) Lymph % (Auto) Roosevelt % (Auto) Eos % (Auto) Baso % (Auto) Neut # (Auto) Lymph # (Auto) Roosevelt # (Auto) Eos # (Auto) Baso # (Auto) Immature Gran # (Auto) Absolute Nucleated RBC Immature Gran % Nucleated RBC % Sodium 144 Potassium Chloride Carbon Dioxide Anion Gap BUN Creatinine Estim Creat Clear Calc eGFR BUN/Creatinine Ratio Glucose Calculated Osmolality Calcium Corrected Calcium Phosphorus Magnesium Total Bilirubin AST ALT Alkaline Phosphatase Total Protein Albumin Globulin Albumin/Globulin Ratio ABG Interpretation ABG results: 04/15/24 21:39 ABG pH 7.40 ABG pCO2 46 ABG pO2 103 ABG HCO3 28 H ABG O2 Saturation 98 ABG Base Excess 3 Quality Measures Quality Measures VTE prophylaxis Advance care planning discussed with:: spouse Assessment & Plan Assessment Current Active Medications: Generic Name Dose Route Start Last Admin Trade Name Freq PRN Reason Stop Dose Admin Acetaminophen 650 mg 04/17/24 09:35 Acetaminophen 325 Mg Tablet PO 05/15/24 19:49 Q6H PRN PAIN 1-3 OR FEVER > 101 Hydrocodone Bitart/Acetaminophen 1 tab 04/15/24 19:54 Hydrocodone/Apap 10/325 Tab PO 04/20/24 19:53 Q6HR PRN PAIN SCALE 4-10(Mod-Sev Amiodarone HCl 200 mg 04/16/24 09:00 04/17/24 09:13 Amiodarone Hcl 200 Mg Tablet PO 05/16/24 08:59 Not Given QDAY SABINA Apixaban 5 mg 04/15/24 21:00 04/17/24 09:13 Apixaban 2.5 Mg Tablet PO 05/15/24 20:59 Not Given BID SABINA Dextrose 25 ml 04/15/24 19:56 Dextrose 50%-Water Inj 50 Ml Syringe IV 05/15/24 19:55 Q15MIN PRN BG 50-70 responsive npo pt Dextrose 50 ml 04/15/24 19:56 Dextrose 50%-Water Inj 50 Ml Syringe IV 05/15/24 19:55 Q15MIN PRN BG <50 OR BG <70 & pt unresponsive Glucagon 1 mg 04/15/24 19:56 Glucagon Inj 1 Mg Vial IM Q15MIN PRN BG <70, and no IV access Hydralazine HCl 10 mg 04/16/24 10:01 Hydralazine Inj 20 Mg/Ml Vial IV 05/16/24 05:29 Q6H PRN sbp>160 Dextrose 1,000 mls @ 100 mls/hr 04/16/24 06:45 04/17/24 13:07 D5w IV 04/17/24 19:43 Not Given .Q10H SABINA Potassium Chloride 40 meq/ 1,020 mls @ 100 mls/hr 04/17/24 08:51 04/17/24 10:07 Dextrose IV 04/18/24 08:50 100 mls/hr .[id number] SABINA Administration Meropenem 1,000 mg/ Sodium 50 mls @ 100 mls/hr 04/17/24 12:00 04/17/24 12:01 Chloride IV 04/24/24 11:59 100 mls/hr Q12H SABINA Administration Protocol Potassium Phosphate 22.5 mmol/ 507.5 mls @ 82.778 mls/hr 04/17/24 14:37 Sodium Chloride IV 04/17/24 20:44 X1 ONE Insulin Human Lispro 0 unit 04/17/24 11:30 04/17/24 11:24 Insulin Lispro (Admelog) 1 Unit/0.01 Ml Unit SC 05/17/24 11:29 1 unit AC SABINA Administration Protocol Ondansetron HCl 4 mg 04/15/24 19:50 Ondansetron Inj 2 Mg/Ml Inj 2 Ml IV 05/15/24 19:49 Q6H PRN NAUSEA OR VOMITING Protocol Pantoprazole Sodium 40 mg 04/16/24 09:00 04/17/24 09:01 Pantoprazole Inj 40 Mg Vial IVP 05/16/24 08:59 40 mg QDAY SABINA Administration Sennosides 1 tab 04/16/24 09:00 04/17/24 09:13 Senna Tablet PO 05/16/24 08:59 Not Given QDAY SABINA Protocol Plan Summary: The patient is a 73-year-old female with past medical history of CABG complicated with wound infection, subsequently had operative debridement and wound VAC was placed, has a wide deep scar in the middle of the chest, history of partial mastectomy due to breast cancer, completed full course of radiation in 2021, history of recurrent UTIs, dementia, history of hypercalcemia of malignancy was admitted for acute metabolic encephalopathy most likely secondary due to hypercalcemia, dehydration, UTI, versus worsening baseline dementia. #Acute metabolic encephalopathy secondary to hypercalcemia and hypernatremia #Hypercalcemia in the setting of dehydration versus malignancy related hypercalcemia #ESBL UTI #WILLIAM most likely prerenal in the setting of dehydration Patient presented with worsening baseline mentation Patient has a history of hypercalcemia most likely secondary due to malignancy, and recently has been taking vitamin D/calcium vitamins also stated that for the last week patient had very poor oral intake was not eating and drinking enough CT head was negative for any hemorrhage, mass or midline shift Labs revealed hypercalcemia with calcium of 13.8, sodium 155, chloride is 118, hemoglobin is 16.5, hematocrit 51.2, WILLIAM with creatinine of 2.8, BUN 15 6, all this labs consistent with severe dehydration, hemoconcentration. Patient received 1 L bolus of NS and is currently on D5W at 100 cc/h. She also received IV calcitonin x 1 and has not received Prolia. For UTI, patient is on IV ceftriaxone. Will continue IV fluids and monitor calcium levels as well as follow-up blood and urine cultures. 04/17/2024- The patient received Prolia yesterday for management of hypercalcemia, calcium improved today- 11.3. She was also reviewed by oncologist Dr. Uriostegui who has seen patient in the past admission but had not seen her for follow-up yet. On labs today, hypernatremia is resolving with sodium of 149, creatinine is improved to 2.0 and she also has a hypokalemia of 2.8. Will replete electrolytes and repeat renal panel Plan: -Continue IV fluids -DC IV ceftriaxone -Commence IV Meropenem -Pending final blood culture, prelim negative -Aspiration precaution -Nephrology consulted, appreciate recommendations #Hypernatremia #Hypokalemia #Hypophosphatemia Admitting potassium-3.0. Today, potassium is 2.8 Admitting sodium-155 with osmolality of 326. Na today, 149 Free water deficit- 3.7L Plan: -Continue IV fluids D5W at 100 cc/h with IV Kcl -Potassium phosphate -Continue to monitor CMP with sodium checks every 4 hours -Replete electrolytes as indicated # History of type II DM Patient was on home Ozempic A1c-6 -Insulin sliding scale -hypoglycemic protocole is placed -monitor BS #History of DVT and PE Patient is on eliquis 5mg BID Wells score for PE 4.0 moderate risk -will resume after swallow eval is passed # History of CAD s/p CABG #HTN #HLD BP under control -will resume atorvastatin after swallow eval is passed #Hx of dementia - Patient is on memantine -Will resume after swallow eval is passed #Hx of RLS -Patient is on pramipexole Will resume after swallow eval is passed #History of breast cancer s/p mastectomy and radiation MRI which was done in 12/30/2023 showed increased white matter signal in the posterior oral right temporal parietal lobe with septal enhancement of the cortex. they have been trying to get an appointment with Dr. Uriostegui, but bc of transportation issues they did not succeed Plan: -Oncology consulted, appreciate recommendations Disposition: Telemetry DVT prophylaxis: Eliquis GI prophylaxis: PPI Diet: NPO, pending speech eval Lines: PIV CODE STATUS:DNR Case was discussed with senior resident Dr Franco PGY-3 and attending physician, Dr Berry Judge MD PGY-1 Attending Provider Attestation/Addendum 74-year-old female with multiple comorbidities including hypertension, hyperlipidemia, type 2 diabetes mellitus with subsequent CAD status post CABG, breast cancer status post partial mastectomy and chemoradiation back in 2021 and multiple admissions in the past for acute encephalopathy secondary to hypercalcemia who presented back again to the ER on 04/15/2024 with complaints of acute metabolic encephalopathy secondary to hypercalcemia and hypernatremia with UTI subsequently started on IV fluid resuscitation. In addition, patient at baseline is alert and oriented to name and failed swallow evaluation and likely will need PEG tube placement. As of now, calcium improving still with hypernatremia and plan to continue IV fluid resuscitation and monitor patient closely. I reviewed above note and agree with findings and plans. I have also personally examined the patient with medicine team and went over assessment and plan with medical team including chemist internship and resident physician.
[2024-04-17] MEDS: POTASSIUM PHOS 22.5 MMOL in SODIUM CHLORIDE 0.9% 500 ML 500 ML 82.778 MMOL IV (15:35)
[2024-04-17 17:29] LABS: Sodium 147 mMol/L (136-145)
[2024-04-17] MEDS: hydrALAZINE INJ 20 MG/ML VIAL 10 MG IV (19:31)
--- NOTE | 2024-04-17 20:45 | ESPR_ITS ---
RE: VAIBHAV ZUÑIGA : 1950 DATE OF SERVICE: 04/17/2024 S: This patient is a 73-year-old woman with past medical history significant for coronary artery disease, status post coronary artery bypass graft in November 2017 complicated by DVT and pulmonary embolism, stage IIA moderately differentiated infiltrating ductal carcinoma of the left breast, status post partial mastectomy and radiation therapy, history of recurrent hypercalcemia not related to metastatic bone disease who was previously treated with denosumab, was admitted on 04/15/2024 with altered mental status. Her calcium level was 13.8. Again, the patient was given denosumab 60 mg x1 and calcium level started to go down in the next 48 hours. The patient was also given IV fluids and hydrated adequately. The patient also has underlying dementia and most of the time very confused. When she presented her serum sodium was 155, potassium of 3, BUN of 56 and creatinine of 2.8. With IV fluid hydration, kidney function slowly improved and today creatinine is at 1.9. Calcium level went down to 10.8. On previous notes, the patient was also taking vitamin D and calcium tablets, which I believe has been discontinued. The patient remains obtunded. CURRENT MEDICATIONS: 1. Acetaminophen. 2. Amiodarone. 3. Apixaban 5 mg b.i.d. 4. Calcitonin 400 units subcutaneously x1. 5. Denosumab 50 mg x1 IV. 6. Glucagon x1. 7. Hydralazine 10 mg IV every 6 hours. 8. Hydrocodone. 9. Lispro. 10. Merrem 1 g IV every 12 hours. 11. Ondansetron. 12. Potassium phosphate. GENERAL: Obtunded. HEENT: Anicteric sclerae, normocephalic. NECK: Supple. No JVD. CHEST AND LUNGS: Symmetrical expansion. Clear breath sounds. HEART: Without murmur. ABDOMEN: Soft, nontender. EXTREMITIES: No edema. LABORATORY DATA: Sodium 137, potassium 3.7, chloride 113, CO2 of 23.2, BUN 47, creatinine 1.9, calcium level 10.8. Hemoglobin 13.7, WBC 13,900 and platelet count 126,000. A: 1. Acute kidney injury most likely secondary to severe dehydration and hypercalcemia contributing to further dehydration from polyuria of hypercalcemia 2. Hypercalcemia not related to malignancy most likely secondary to dehydration due to volume contraction rule out primary hyperparathyroidism, vitamin d intoxication 3. Hypernatremia, secondary to dehydration. 4. History of pulmonary embolism on Eliquis. 5. Coronary artery disease, status post coronary artery bypass graft. 6. Dementia. P: I agree with providing her with D5 water at current rate. The patient may need a G tube for hydration and nutrition. Given that she has multiple admissions due to obtundation and hypercalcemia, it is in her best interest to place a PEG tube for nutrition and hydration. I will also obtain intact PTH and 25 hydroxy VitaminD. Continue monitoring urine output, kidney function, electrolytes on a daily basis. Replace potassium as needed and phosphorus. DT: 20:06:43 TT: 20:44:00 Ref: [id number] - TID: [id number] MTDD
[2024-04-17 20:58] LABS: Sodium 147 mMol/L (136-145)
[2024-04-18] VITALS (11 sets, daily range): BP systolic 123–171; BP diastolic 79–106; PULSE 66–73; RESP 12–19; TEMP 35.8–36.8; O2SAT 95–98; BMI 40.7
[2024-04-18 02:11] LABS: Sodium 148 mMol/L (136-145)
[2024-04-18 02:32] LABS: Parathyroid Hormone Intact 96.2 pg/ml (18.5-88.0)
[2024-04-18 02:43] LABS: Vitamin D 25 Hydroxy Total 23.5 ng/mL (7.3-40.2)
[2024-04-18 05:52] LABS: Basophils % (Auto) 0 % (0-2.5); Eosinophils # (Auto) 0.2 Thou/mm3 (0.0-0.5); Eosinophils % (Auto) 2 % (0-10); Hematocrit 43.3 % (36.0-46.0); Hemoglobin 14.2 g/dL (12.0-16.0); Immature Granulocytes % (Auto) 0 % (0-0); Immature Granulocytes Auto 0.05 Thou/mm3 (0.00-0.00); Lymphocytes # (Auto) 2.8 Thou/mm3 (1.0-4.8); Lymphocytes % (Auto) 21 % (10-50); Mean Corpuscular HGB Conc 32.8 g/dl (31.0-37.0); Mean Corpuscular Hemoglobin 28.7 pg (25.0-35.0); Mean Corpuscular Volume 88 fL (80-100); Monocytes # (Auto) 0.7 Thou/mm3 (0.0-0.8); Monocytes % (Auto) 5 % (0-12); Neutrophils # (Auto) 9.4 Thou/mm3 (1.8-7.7); Neutrophils % (Auto) 71 % (37-80); Nucleated Red Blood Cell % 0 /100 WBC (0); Platelet Count 130 Thou/mm3 (140-440); RDW Standard Deviation 45.2 fL (36.4-46.3); Red Blood Count 4.94 Miln/mm3 (4.00-5.20); White Blood Count 13.1 Thou/mm3 (3.6-11.0)
[2024-04-18 06:17] LABS: Alanine Aminotransferase 29 U/L (10-49); Albumin, Serum 3.9 gm/dL (3.4-4.8); Albumin/Globulin Ratio 1.4 (1.2-2.2); Alkaline Phosphatase 62 U/L (46-116); Anion Gap 10 (7-16); Aspartate Amino Transferase 30 U/L (0-34); BUN/Creatinine Ratio 23 Ratio (12-20); Bilirubin,Total 0.6 mg/dL (0.3-1.2); Blood Urea Nitrogen 36 mg/dL (9-23); Calcium (Corrected) 10.1 mg/dL (8.5-10.1); Carbon Dioxide 21.7 mMol/L (20.0-31.0); Chloride 115 mMol/L (98-107); Creatinine (Component) 1.6 mg/dL (0.6-1.3); Globulin 2.8 gm/dL (2.3-3.5); Glucose 162 mg/dL (74-106); Magnesium 1.7 mg/dL (1.6-2.6); Osmolality,Calculated 304 (275-295); Phosphorous 2.8 mg/dL (2.4-5.1); Potassium 3.1 mMol/L (3.4-5.1); Sodium 147 mMol/L (136-145); Total Protein 6.7 gm/dL (5.7-8.2); eGFR 34 See Note
--- NOTE | 2024-04-18 07:50 | PCS.ST ---
Seen this AM for PO trials with . Pt is safe for puree diet when she is alert enough to participate.
[2024-04-18] MEDS: INSULIN LISPRO (AdmeLOG) 1 UNIT/0.01 ML UNIT SC ×3 (08:08→17:42)
[2024-04-18] MEDS: POT CHL ADDITIVE 40 MEQ in DEXTROSE 5%-WATER 1,000 ML 100 MEQ IV ×2 (09:52→20:49)
[2024-04-18 10:16] LABS: Sodium 146 mMol/L (136-145)
[2024-04-18] MEDS: PANTOPRAZOLE INJ 40 MG VIAL IVP (10:24)
[2024-04-18] MEDS: SENNA TABLET 1 TAB PO (10:25)
[2024-04-18] MEDS: AMIODARONE HCL 200 MG TABLET PO (10:25)
[2024-04-18] MEDS: HEPARIN SOD INJ 5000 UNIT/ML VIAL SC ×2 (10:27→20:49)
--- NOTE | 2024-04-18 10:32 | PC.SS ---
This is 73-year-old, , female who presented to the ED for altered menta status. Patient appeared confused and the assessment was completed with . Patient resides at home with her , . Patient is bedbound, and her assist her with all ADLs. Patient has a wheelchair and che lift at home. Patient's PCP is Dr. Land. Patient's medical decision maker is Trip. When medically clear, patient will return home and is asking for [facility] home health RN and [employer]IA DIRECT[employer] services.
--- NOTE | 2024-04-18 11:30 | ESPR_ITS ---
<Statement entered by Meghan Franco DO - 04/18/24 19:23> Senior attestation: Patient was examined and case was reviewed with team including attending physician. Note reviewed, I agree with most of its contents and agree with the patient's care. Will continue IV merem for MDR ESBL E coli UTI, creatinine improving, oncology team advises MRI prior to discharge. Calcium and sodium levels improving. Meghan Franco DO PGY-3 Documentation for date of: 04/18/24 Subjective Subjective Interval history: Patient seen at bedside. No acute overnight events. Mentation today improved, patient is more awake and alert today. Not oriented to person but is able to answer simple questions. As patient was lethargic yesterday, she was NPO for most of the day. Labs and vitals reviewed. Sodium, calcium and creatinine levels improving on IV fluids. Potassium low today at 3.1 For ESBL UTI, Patient is on IV Meropenem 1g Q8hr.. Will continue IV fluids and antibiotics and monitoring mental function. Patient will need a follow up brain MRI once kidney function improves. Exam Vital Signs Temp Pulse Resp BP Pulse Ox O2 Del Method O2 Flow Rate 97.2 F 69 14 133/82 H 98 Nasal Cannula 1 04/18/24 08:00 04/18/24 10:25 04/18/24 08:00 04/18/24 10:25 04/18/24 08:00 04/18/24 08:00 04/18/24 08:00 Narrative Exam GENERAL: AAOX0, responds to name and answers simple questions NEURO: No focal neurologic deficits HEENT: Dry mucosa. Eyes open, symmetrical, & clear CARDIO: Scar seein middle of chest from CABG.No chest pain on palpation. Heart RRR, no obvious murmurs PULM: No noted coughing/dyspnea. Lungs CTA B/L GI: Abdomen soft, nondistended, no pain on palpation. BSx4 URO/RETAIL STORE MANAGER:: No further abnormalities noted. SKIN/MSK/EXT: No wounds/rashes/edema/amputations, no pain on palpation. Pedal pulses present B/L Objective Labs 04/22/24 05:44 04/22/24 05:44 Labs: Laboratory Results - last 24 hr 04/17/24 04/17/24 04/17/24 12:47 13:59 16:30 WBC RBC Hgb Hct MCV MCH MCHC RDW Std Deviation Plt Count Neut % (Auto) Lymph % (Auto) [place] % (Auto) Eos % (Auto) Baso % (Auto) Neut # (Auto) Lymph # (Auto) [place] # (Auto) Eos # (Auto) Baso # (Auto) Immature Gran # (Auto) Absolute Nucleated RBC Immature Gran % Nucleated RBC % Sodium 144 145 147 H Potassium 3.7 D Chloride 113 H Carbon Dioxide 23.7 Anion Gap 8 BUN 47 H Creatinine 1.9 H Estim Creat Clear Calc 30.3 L eGFR 28 L BUN/Creatinine Ratio 25 H Glucose 227 H Calculated Osmolality 307 H Calcium 10.8 H Corrected Calcium Phosphorus Magnesium Total Bilirubin AST ALT Alkaline Phosphatase Total Protein Albumin Globulin Albumin/Globulin Ratio 25-OH Vitamin D Total PTH Intact 04/17/24 04/18/24 04/18/24 20:18 01:41 05:09 WBC 13.1 H RBC 4.94 Hgb 14.2 Hct 43.3 MCV 88 MCH 28.7 MCHC 32.8 RDW Std Deviation 45.2 Plt Count 130 L Neut % (Auto) 71 Lymph % (Auto) 21 [place] % (Auto) 5 Eos % (Auto) 2 Baso % (Auto) 0 Neut # (Auto) 9.4 H Lymph # (Auto) 2.8 [place] # (Auto) 0.7 Eos # (Auto) 0.2 Baso # (Auto) 0.0 Immature Gran # (Auto) 0.05 H Absolute Nucleated RBC 0.00 Immature Gran % 0 Nucleated RBC % 0 Sodium 147 H 148 H 147 H Potassium 3.1 L D Chloride 115 H Carbon Dioxide 21.7 Anion Gap 10 BUN 36 H Creatinine 1.6 H Estim Creat Clear Calc 36.0 L eGFR 34 L BUN/Creatinine Ratio 23 H Glucose 162 H D Calculated Osmolality 304 H Calcium 10.0 Corrected Calcium 10.1 Phosphorus 2.8 Magnesium 1.7 Total Bilirubin 0.6 AST 30 ALT 29 Alkaline Phosphatase 62 Total Protein 6.7 Albumin 3.9 Globulin 2.8 Albumin/Globulin Ratio 1.4 25-OH Vitamin D Total 23.5 PTH Intact 96.2 H 04/18/24 09:00 WBC RBC Hgb Hct MCV MCH MCHC RDW Std Deviation Plt Count Neut % (Auto) Lymph % (Auto) [place] % (Auto) Eos % (Auto) Baso % (Auto) Neut # (Auto) Lymph # (Auto) [place] # (Auto) Eos # (Auto) Baso # (Auto) Immature Gran # (Auto) Absolute Nucleated RBC Immature Gran % Nucleated RBC % Sodium 146 H Potassium Chloride Carbon Dioxide Anion Gap BUN Creatinine Estim Creat Clear Calc eGFR BUN/Creatinine Ratio Glucose Calculated Osmolality Calcium Corrected Calcium Phosphorus Magnesium Total Bilirubin AST ALT Alkaline Phosphatase Total Protein Albumin Globulin Albumin/Globulin Ratio 25-OH Vitamin D Total PTH Intact ABG Interpretation ABG results: 04/15/24 21:39 ABG pH 7.40 ABG pCO2 46 ABG pO2 103 ABG HCO3 28 H ABG O2 Saturation 98 ABG Base Excess 3 Quality Measures Quality Measures VTE prophylaxis Advance care planning discussed with:: spouse Assessment & Plan Assessment Current Active Medications: Generic Name Dose Route Start Last Admin Trade Name Freq PRN Reason Stop Dose Admin Acetaminophen 650 mg 04/17/24 09:35 Acetaminophen 325 Mg Tablet PO 05/15/24 19:49 Q6H PRN PAIN 1-3 OR FEVER > 101 Hydrocodone Bitart/Acetaminophen 1 tab 04/15/24 19:54 Hydrocodone/Apap 10/325 Tab PO 04/20/24 19:53 Q6HR PRN PAIN SCALE 4-10(Mod-Sev Amiodarone HCl 200 mg 04/16/24 09:00 04/18/24 10:25 Amiodarone Hcl 200 Mg Tablet PO 05/16/24 08:59 200 mg QDAY SABINA Administration Apixaban 5 mg 04/15/24 21:00 04/17/24 20:47 Apixaban 2.5 Mg Tablet PO 05/15/24 20:59 Not Given BID SABINA Dextrose 25 ml 04/15/24 19:56 Dextrose 50%-Water Inj 50 Ml Syringe IV 05/15/24 19:55 Q15MIN PRN BG 50-70 responsive npo pt Dextrose 50 ml 04/15/24 19:56 Dextrose 50%-Water Inj 50 Ml Syringe IV 05/15/24 19:55 Q15MIN PRN BG <50 OR BG <70 & pt unresponsive Glucagon 1 mg 04/15/24 19:56 Glucagon Inj 1 Mg Vial IM Q15MIN PRN BG <70, and no IV access Heparin Sodium (Porcine) 5,000 unit 04/18/24 09:00 04/18/24 10:27 Heparin Sod Inj 5000 Unit/Ml Vial SC 05/02/24 08:59 5,000 unit Q12HR SABINA Administration Hydralazine HCl 10 mg 04/16/24 10:01 04/17/24 19:31 Hydralazine Inj 20 Mg/Ml Vial IV 05/16/24 05:29 10 mg Q6H PRN Administration sbp>160 Meropenem 1,000 mg/ Sodium 50 mls @ 100 mls/hr 04/17/24 12:00 04/17/24 23:58 Chloride IV 04/24/24 11:59 100 mls/hr Q12H SABINA Administration Protocol Potassium Chloride 40 meq/ 1,020 mls @ 100 mls/hr 04/18/24 08:51 04/18/24 09:52 Dextrose IV 04/19/24 08:50 100 mls/hr .[id number] SABINA Administration Insulin Human Lispro 0 unit 04/17/24 11:30 04/18/24 08:08 Insulin Lispro (Admelog) 1 Unit/0.01 Ml Unit SC 05/17/24 11:29 1 unit AC SABINA Administration Protocol Ondansetron HCl 4 mg 04/15/24 19:50 Ondansetron Inj 2 Mg/Ml Inj 2 Ml IV 05/15/24 19:49 Q6H PRN NAUSEA OR VOMITING Protocol Pantoprazole Sodium 40 mg 04/16/24 09:00 04/18/24 10:24 Pantoprazole Inj 40 Mg Vial IVP 05/16/24 08:59 40 mg QDAY SABINA Administration Sennosides 1 tab 04/16/24 09:00 04/18/24 10:25 Senna Tablet PO 05/16/24 08:59 1 tab QDAY SABINA Administration Protocol Plan Summary: The patient is a 73-year-old female with past medical history of CABG complicated with wound infection, subsequently had operative debridement and wound VAC was placed, has a wide deep scar in the middle of the chest, history of partial mastectomy due to breast cancer, completed full course of radiation in 2021, history of recurrent UTIs, dementia, history of hypercalcemia of malignancy was admitted for acute metabolic encephalopathy most likely secondary due to hypercalcemia, dehydration, UTI, versus worsening baseline dementia. #Acute metabolic encephalopathy secondary to hypercalcemia and hypernatremia #Hypercalcemia in the setting of dehydration versus malignancy related hypercalcemia #ESBL UTI #WILLIAM most likely prerenal in the setting of dehydration Patient presented with worsening baseline mentation Patient has a history of hypercalcemia most likely secondary due to malignancy, and recently has been taking vitamin D/calcium vitamins also stated that for the last week patient had very poor oral intake was not eating and drinking enough CT head was negative for any hemorrhage, mass or midline shift Labs revealed hypercalcemia with calcium of 13.8, sodium 155, chloride is 118, hemoglobin is 16.5, hematocrit 51.2, WILLIAM with creatinine of 2.8, BUN 15 6, all this labs consistent with severe dehydration, hemoconcentration. Patient received 1 L bolus of NS and is currently on D5W at 100 cc/h. She also received IV calcitonin x 1 and has not received Prolia. For UTI, patient is on IV ceftriaxone. Will continue IV fluids and monitor calcium levels as well as follow-up blood and urine cultures. 04/18/2024- Mentation today improved, patient is more awake and alert today. Not oriented to person but is able to answer simple questions. Labs and vitals reviewed. Sodium, calcium and creatinine levels improving on IV fluids. Potassium low today at 3.1 For ESBL UTI, Patient is on IV Meropenem 1g Q8hr..Blood cultures negative Plan: -Continue IV fluids D5W at 100cc/hr with sodium checks -Continue IV Meropenem -Aspiration precaution -Nephrology consulted, appreciate recommendations #Hypernatremia #Hypokalemia #Hypophosphatemia Admitting potassium-3.0. Today, potassium is 2.8 Admitting sodium-155 with osmolality of 326. Na today, 147 Free water deficit- 3.7L Plan: -Continue IV fluids D5W at 100 cc/h with IV Kcl -Continue to monitor CMP with sodium checks every 4 hours -Replete electrolytes as indicated # History of type II DM Patient was on home Ozempic A1c-6 -Insulin sliding scale -hypoglycemic protocole is placed -monitor BS #History of DVT and PE Patient is on eliquis 5mg BID Wells score for PE 4.0 moderate risk -will resume after swallow eval is passed, SC heparin for prophylaxis now # History of CAD s/p CABG #HTN #HLD BP under control -will resume atorvastatin after swallow eval is passed #Hx of dementia - Patient is on memantine -Will resume after swallow eval is passed #Hx of RLS -Patient is on pramipexole Will resume after swallow eval is passed #History of breast cancer s/p mastectomy and radiation MRI which was done in 12/30/2023 showed increased white matter signal in the posterior oral right temporal parietal lobe with septal enhancement of the cortex. they have been trying to get an appointment with Dr. Uriostegui, but bc of transportation issues they did not succeed Plan: -Oncology consulted, appreciate recommendations Disposition: Telemetry DVT prophylaxis: SC Heparin GI prophylaxis: PPI Diet: Cardiac Lines: PIV CODE STATUS:DNR Case was discussed with senior resident Dr Franco PGY-3 and attending physician, Dr Berry Judge MD PGY-1 Attending Provider Attestation/Addendum 74-year-old female with multiple comorbidities including hypertension, hyperlipidemia, type 2 diabetes mellitus with subsequent CAD status post CABG, breast cancer status post partial mastectomy and chemoradiation back in 2021 and multiple admissions in the past for acute encephalopathy secondary to hypercalcemia who presented back again to the ER on 04/15/2024 with complaints of acute metabolic encephalopathy secondary to hypercalcemia and hypernatremia with UTI subsequently started on IV fluid resuscitation. In addition, patient at baseline is alert and oriented to name and failed swallow evaluation and likely will need PEG tube placement. As of now, calcium improving still with hypernatremia and plan to continue IV fluid resuscitation and monitor patient closely. Currently, patient is able to open eyes and answer simple question which is improvement however not back to baseline. I reviewed above note and agree with findings and plans. I have also personally examined the patient with medicine team and went over assessment and plan with medical team including hospitality internship and resident physician.
[2024-04-18] MEDS: MEROPENEM INJ 1,000 MG in SODIUM CHLORIDE 0.9% (P) 50 ML 100 MG IV (11:39)
[2024-04-18 13:24] LABS: Sodium 144 mMol/L (136-145)
--- NOTE | 2024-04-18 13:38 | ESPR_ITS ---
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 Her calcium level upon admission was 13.8. She was given denosumab 60 mg x1 and calcium level started to go down in the next 48 hours. The patient was also given IV fluids and was hydrated adequately. The patient also has underlying dementia and most of the time she is very confused. Her is the only one taking care of her. When she presented to the hospital, her serum sodium was 155, potassium of 3, BUN of 56 and creatinine of 2.8. With IV fluid hydration, kidney function slowly improved and today serum sodium is at 146 and creatinine is at 1.6. She is more awake and alert. at bedside, who also told me that the patient sometimes does not want to eat at all or even drink. He said that he has a hard time feeding her. The patient was also being given by cancer treatment center vitamin D and calcium tablet. CURRENT MEDICATIONS: 1. Acetaminophen 2. Amiodarone. 3. Apixaban 5 mg b.i.d. 4. Calcitonin 400 units subcutaneously x1. 5. Denosumab 60 mg x1 IV. 6. Glucagon x1. 7. Hydralazine 10 mg IV q.6. 8. Hydrocodone. 9. Lispro. 10. Merrem 1 g IV q. 12 hours. 11. Ondansetron. 12. Potassium phosphate. O: General: She is more awake and alert. Neck: Supple. No JVD. Chest And Lungs: Symmetrical expansion. Clear breath sounds. Heart: No rub. No murmur. Abdomen: Soft and nontender. Extremities: No edema. LABORATORY DATA: Sodium 146, potassium 3.1, chloride 115, CO2 21.7, BUN 36, creatinine 1.6, glucose 162, calcium 10. Hemoglobin 14.8, WBC 13,100, platelet count 130,000. A: 1. Acute kidney injury secondary to severe dehydration and hyperglycemia, which contributed to further dehydration due to polyuria attributed to hypercalcemia, now improved. 2. Hypercalcemia, not related to metastatic bone disease, but possibly secondary to PTH related protein. Rule out primary hyperparathyroidism and vitamin D intoxication. 3. Hypernatremia secondary to dehydration. 4. History of pulmonary embolism, on Eliquis. 5. Coronary artery disease status post CABG. 6. Dementia. P: The patient is currently on D5 water for hydration. I have discussed with her that maybe in the future she may require G-tube when she stopped eating and drinking again. He said that he will discuss this further with his primary care physician. I also obtained intact PTH and 25-hydroxy vitamin D level. I also believe that this might also be secondary to PTH related protein due to the malignancy. Continue to replete potassium and phosphorus as needed. DT: 12:27:22 TT: 13:31:00 Ref: [id number] - TID: [id number] MTDD
[2024-04-19] VITALS (12 sets, daily range): BP systolic 118–171; BP diastolic 82–113; PULSE 67–84; RESP 12–19; TEMP 35.9–37; O2SAT 95–98
[2024-04-19] MEDS: MEROPENEM INJ 1,000 MG in SODIUM CHLORIDE 0.9% (P) 50 ML 100 MG IV ×3 (00:28→23:42)
[2024-04-19] MEDS: hydrALAZINE INJ 20 MG/ML VIAL 10 MG IV ×2 (00:29→20:36)
[2024-04-19 05:46] LABS: Basophils % (Auto) 0 % (0-2.5); Eosinophils # (Auto) 0.2 Thou/mm3 (0.0-0.5); Eosinophils % (Auto) 2 % (0-10); Hematocrit 41.6 % (36.0-46.0); Hemoglobin 13.7 g/dL (12.0-16.0); Immature Granulocytes % (Auto) 0 % (0-0); Immature Granulocytes Auto 0.05 Thou/mm3 (0.00-0.00); Lymphocytes # (Auto) 2.4 Thou/mm3 (1.0-4.8); Lymphocytes % (Auto) 21 % (10-50); Mean Corpuscular HGB Conc 32.9 g/dl (31.0-37.0); Mean Corpuscular Hemoglobin 28.7 pg (25.0-35.0); Mean Corpuscular Volume 87 fL (80-100); Monocytes # (Auto) 0.5 Thou/mm3 (0.0-0.8); Monocytes % (Auto) 4 % (0-12); Neutrophils # (Auto) 8.6 Thou/mm3 (1.8-7.7); Neutrophils % (Auto) 73 % (37-80); Nucleated Red Blood Cell % 0 /100 WBC (0); Platelet Count 119 Thou/mm3 (140-440); RDW Standard Deviation 45.6 fL (36.4-46.3); Red Blood Count 4.78 Miln/mm3 (4.00-5.20); White Blood Count 11.8 Thou/mm3 (3.6-11.0)
[2024-04-19 06:17] LABS: Alanine Aminotransferase 28 U/L (10-49); Albumin, Serum 3.8 gm/dL (3.4-4.8); Albumin/Globulin Ratio 1.4 (1.2-2.2); Alkaline Phosphatase 67 U/L (46-116); Anion Gap 10 (7-16); Aspartate Amino Transferase 26 U/L (0-34); BUN/Creatinine Ratio 19 Ratio (12-20); Bilirubin,Total 0.7 mg/dL (0.3-1.2); Blood Urea Nitrogen 27 mg/dL (9-23); Calcium 9.4 mg/dL (8.3-10.6); Calcium (Corrected) 9.6 mg/dL (8.5-10.1); Chloride 114 mMol/L (98-107); Creatinine (Component) 1.4 mg/dL (0.6-1.3); Estimated Creatinine Clearance 42.3 mL/min (>60); Globulin 2.7 gm/dL (2.3-3.5); Glucose 142 mg/dL (74-106); Magnesium 1.7 mg/dL (1.6-2.6); Osmolality,Calculated 293 (275-295); Phosphorous 1.7 mg/dL (2.4-5.1); Potassium 3.4 mMol/L (3.4-5.1); Sodium 144 mMol/L (136-145); Total Protein 6.5 gm/dL (5.7-8.2); eGFR 40 See Note
[2024-04-19] MEDS: INSULIN LISPRO (AdmeLOG) 1 UNIT/0.01 ML UNIT SC ×2 (07:48→12:04)
[2024-04-19] MEDS: POT CHL ADDITIVE 40 MEQ in DEXTROSE 5%-WATER 1,000 ML 100 MEQ IV (07:48)
[2024-04-19] MEDS: POTASSIUM PHOS 22.5 MMOL in SODIUM CHLORIDE 0.9% 500 ML 500 ML 82.778 MMOL IV (08:38)
[2024-04-19] MEDS: PANTOPRAZOLE INJ 40 MG VIAL IVP (08:38)
[2024-04-19] MEDS: SENNA TABLET 1 TAB PO (08:38)
[2024-04-19] MEDS: AMIODARONE HCL 200 MG TABLET PO (08:38)
[2024-04-19] MEDS: HEPARIN SOD INJ 5000 UNIT/ML VIAL SC ×2 (08:39→20:10)
[2024-04-19] MEDS: ACETAMINOPHEN 325 MG TABLET 650 MG PO (09:04)
[2024-04-19 09:38] LABS: Free T4 (Free Thyroxine) 1.83 ng/dL (0.89-1.76)
--- NOTE | 2024-04-19 11:11 | ESPR_ITS ---
<Statement entered by Meghan Franco DO - 04/19/24 13:30> Senior attestation: Patient was examined and case was reviewed with team including attending physician. Note reviewed, I agree with most of its contents and agree with the patient's care. Patient showing clinical improvement as she appears more talkative today, still not answer alert and oriented questions however. Patients family considering PEG tube, ID consult for ESBL MDR UTI, and patient advised for MRI prior to discharge by oncology team. Meghan Franco DO PGY-3 Documentation for date of: 04/19/24 Subjective Subjective Interval history: Patient seen at bedside. No acute overnight events. Patient's mentation is slightly improved today, she still AO x 0 but is more awake and alert, seems to be in pain acute pain medications. Labs and vitals reviewed, WBC downtrending to 11.8, potassium 3.4 and phosphorus at 1.7 will replete. Sodium and calcium now within normal limits. PTH elevated Kidney function improving with creatinine at 1.4 today. Will continue to give patient IV fluids as she is unable to properly tolerate diet now. Considering PEG tube for nutrition if patient becomes more awake. Continuing meropenem for ESBL UTI, ID consulted. Exam Vital Signs Temp Pulse Resp BP Pulse Ox O2 Del Method O2 Flow Rate 96.6 F L 75 12 118/88 H 97 Nasal Cannula 1 04/19/24 08:00 04/19/24 09:20 04/19/24 09:20 04/19/24 08:38 04/19/24 09:20 04/19/24 08:00 04/19/24 09:20 Narrative Exam GENERAL: AAOX0, responds to name and answers simple questions NEURO: No focal neurologic deficits HEENT: Dry mucosa. Eyes open, symmetrical, & clear CARDIO: Scar seein middle of chest from CABG.No chest pain on palpation. Heart RRR, no obvious murmurs PULM: No noted coughing/dyspnea. Lungs CTA B/L GI: Abdomen soft, nondistended, no pain on palpation. BSx4 URO/BOOM OPERATOR:: No further abnormalities noted. SKIN/MSK/EXT: No wounds/rashes/edema/amputations, no pain on palpation. Pedal pulses present B/L Objective Labs 04/22/24 05:44 04/22/24 05:44 Labs: Laboratory Results - last 24 hr 04/18/24 04/19/24 12:55 04:47 WBC 11.8 H RBC 4.78 Hgb 13.7 Hct 41.6 MCV 87 MCH 28.7 MCHC 32.9 RDW Std Deviation 45.6 Plt Count 119 L Neut % (Auto) 73 Lymph % (Auto) 21 [place] % (Auto) 4 Eos % (Auto) 2 Baso % (Auto) 0 Neut # (Auto) 8.6 H Lymph # (Auto) 2.4 [place] # (Auto) 0.5 Eos # (Auto) 0.2 Baso # (Auto) 0.0 Immature Gran # (Auto) 0.05 H Absolute Nucleated RBC 0.00 Immature Gran % 0 Nucleated RBC % 0 Sodium 144 144 Potassium 3.4 Chloride 114 H Carbon Dioxide 20.0 Anion Gap 10 BUN 27 H Creatinine 1.4 H Estim Creat Clear Calc 42.3 L eGFR 40 L BUN/Creatinine Ratio 19 Glucose 142 H Calculated Osmolality 293 Calcium 9.4 Corrected Calcium 9.6 Phosphorus 1.7 L Magnesium 1.7 Total Bilirubin 0.7 AST 26 ALT 28 Alkaline Phosphatase 67 Total Protein 6.5 Albumin 3.8 Globulin 2.7 Albumin/Globulin Ratio 1.4 Free T4 1.83 H ABG Interpretation ABG results: 04/15/24 21:39 ABG pH 7.40 ABG pCO2 46 ABG pO2 103 ABG HCO3 28 H ABG O2 Saturation 98 ABG Base Excess 3 Quality Measures Quality Measures VTE prophylaxis Advance care planning discussed with:: spouse Assessment & Plan Assessment Current Active Medications: Generic Name Dose Route Start Last Admin Trade Name Freq PRN Reason Stop Dose Admin Acetaminophen 650 mg 04/17/24 09:35 04/19/24 09:04 Acetaminophen 325 Mg Tablet PO 05/15/24 19:49 650 mg Q6H PRN Administration PAIN 1-3 OR FEVER > 101 Hydrocodone Bitart/Acetaminophen 1 tab 04/15/24 19:54 Hydrocodone/Apap 10/325 Tab PO 04/20/24 19:53 Q6HR PRN PAIN SCALE 4-10(Mod-Sev Amiodarone HCl 200 mg 04/16/24 09:00 04/19/24 08:38 Amiodarone Hcl 200 Mg Tablet PO 05/16/24 08:59 200 mg QDAY SABINA Administration Apixaban 5 mg 04/15/24 21:00 04/17/24 20:47 Apixaban 2.5 Mg Tablet PO 05/15/24 20:59 Not Given BID SABINA Dextrose 25 ml 04/15/24 19:56 Dextrose 50%-Water Inj 50 Ml Syringe IV 05/15/24 19:55 Q15MIN PRN BG 50-70 responsive npo pt Dextrose 50 ml 04/15/24 19:56 Dextrose 50%-Water Inj 50 Ml Syringe IV 05/15/24 19:55 Q15MIN PRN BG <50 OR BG <70 & pt unresponsive Glucagon 1 mg 04/15/24 19:56 Glucagon Inj 1 Mg Vial IM Q15MIN PRN BG <70, and no IV access Heparin Sodium (Porcine) 5,000 unit 04/18/24 09:00 04/19/24 08:39 Heparin Sod Inj 5000 Unit/Ml Vial SC 05/02/24 08:59 5,000 unit Q12HR SABINA Administration Hydralazine HCl 10 mg 04/16/24 10:01 04/19/24 00:29 Hydralazine Inj 20 Mg/Ml Vial IV 05/16/24 05:29 10 mg Q6H PRN Administration sbp>160 Meropenem 1,000 mg/ Sodium 50 mls @ 100 mls/hr 04/17/24 12:00 04/19/24 00:28 Chloride IV 04/24/24 11:59 100 mls/hr Q12H SABINA Administration Protocol Potassium Phosphate 22.5 mmol/ 507.5 mls @ 82.778 mls/hr 04/19/24 07:38 04/19/24 08:38 Sodium Chloride IV 04/19/24 13:45 82.778 mls/hr X1 ONE Administration Insulin Human Lispro 0 unit 04/17/24 11:30 04/19/24 07:48 Insulin Lispro (Admelog) 1 Unit/0.01 Ml Unit SC 05/17/24 11:29 1 unit AC SABINA Administration Protocol Ondansetron HCl 4 mg 04/15/24 19:50 Ondansetron Inj 2 Mg/Ml Inj 2 Ml IV 05/15/24 19:49 Q6H PRN NAUSEA OR VOMITING Protocol Pantoprazole Sodium 40 mg 04/16/24 09:00 04/19/24 08:38 Pantoprazole Inj 40 Mg Vial IVP 05/16/24 08:59 40 mg QDAY SABINA Administration Sennosides 1 tab 04/16/24 09:00 04/19/24 08:38 Senna Tablet PO 05/16/24 08:59 1 tab QDAY SABINA Administration Protocol Plan Summary: The patient is a 73-year-old female with past medical history of CABG complicated with wound infection, subsequently had operative debridement and wound VAC was placed, has a wide deep scar in the middle of the chest, history of partial mastectomy due to breast cancer, completed full course of radiation in 2021, history of recurrent UTIs, dementia, history of hypercalcemia of malignancy was admitted for acute metabolic encephalopathy most likely secondary due to hypercalcemia, dehydration, UTI, versus worsening baseline dementia. #Acute metabolic encephalopathy secondary to hypercalcemia and hypernatremia #Hypercalcemia, possibley due to primary hyperparathyroidism #ESBL UTI #WILLIAM most likely prerenal in the setting of dehydration Patient presented with worsening baseline mentation Patient has a history of hypercalcemia most likely secondary due to malignancy, and recently has been taking vitamin D/calcium vitamins also stated that for the last week patient had very poor oral intake was not eating and drinking enough CT head was negative for any hemorrhage, mass or midline shift Labs revealed hypercalcemia with calcium of 13.8, sodium 155, chloride is 118, hemoglobin is 16.5, hematocrit 51.2, WILLIAM with creatinine of 2.8, BUN 15 6, all this labs consistent with severe dehydration, hemoconcentration. Patient received 1 L bolus of NS and is currently on D5W at 100 cc/h. She also received IV calcitonin x 1 and has not received Prolia. For UTI, patient is on IV ceftriaxone. Will continue IV fluids and monitor calcium levels as well as follow-up blood and urine cultures. 04/18/2024- Patient's mentation is slightly improved today, she still AO x 0 but is more awake and alert, seems to be in pain acute pain medications. Labs and vitals reviewed, WBC downtrending to 11.8, potassium 3.4 and phosphorus at 1.7 will replete. Sodium and calcium now within normal limits. PTH elevated Kidney function improving with creatinine at 1.4 today. Plan: -Continue IV fluids nd diet as tolerated -Continue IV Meropenem -Aspiration precaution -Nephrology consulted, appreciate recommendations #Hypernatremia-resolved #Hypokalemia #Hypophosphatemia Admitting potassium-3.0. Today, potassium is 3.4 Admitting sodium-155 with osmolality of 326. Na today, 147 Free water deficit- 3.7L Plan: -Continue IV fluids D5W at 100 cc/h with IV Kcl -IV potassium phosphate -Continue to monitor CMP with sodium checks every 4 hours -Replete electrolytes as indicated # History of type II DM Patient was on home Ozempic A1c-6 -Insulin sliding scale -hypoglycemic protocole is placed -monitor BS #History of DVT and PE Patient is on eliquis 5mg BID Wells score for PE 4.0 moderate risk -will resume after swallow eval is passed, SC heparin for prophylaxis now # History of CAD s/p CABG #HTN #HLD BP under control -will resume atorvastatin after swallow eval is passed #Hx of dementia - Patient is on memantine -Will resume after swallow eval is passed #Hx of RLS -Patient is on pramipexole Will resume after swallow eval is passed #History of breast cancer s/p mastectomy and radiation MRI which was done in 12/30/2023 showed increased white matter signal in the posterior oral right temporal parietal lobe with septal enhancement of the cortex. they have been trying to get an appointment with Dr. Uriostegui, but bc of transportation issues they did not succeed Plan: -Oncology consulted, appreciate recommendations Disposition: Telemetry DVT prophylaxis: SC Heparin GI prophylaxis: PPI Diet: Cardiac Lines: PIV CODE STATUS:DNR Case was discussed with senior resident Dr Franco PGY-3 and attending physician, Dr Berry Judge MD PGY-1 Attending Provider Attestation/Addendum 74-year-old female with multiple comorbidities including hypertension, hyperlipidemia, type 2 diabetes mellitus with subsequent CAD status post CABG, breast cancer status post partial mastectomy and chemoradiation back in 2021 and multiple admissions in the past for acute encephalopathy secondary to hypercalcemia who presented back again to the ER on 04/15/2024 with complaints of acute metabolic encephalopathy secondary to hypercalcemia and hypernatremia with UTI subsequently started on IV fluid resuscitation. In addition, patient at baseline is alert and oriented to name and failed swallow evaluation and likely will need PEG tube placement. As of now, calcium improving still with hypernatremia and plan to continue IV fluid resuscitation and monitor patient closely. Currently, patient is able to open eyes and answer simple question which is improvement however not back to baseline. Plan to consult GI for possible PEG tube placement and at bedside is in agreement. I reviewed above note and agree with findings and plans. I have also personally examined the patient with medicine team and went over assessment and plan with medical team including production internship and resident physician.
[2024-04-20] VITALS (21 sets, daily range): BP systolic 105–171; BP diastolic 83–122; PULSE 76–93; RESP 9–97; TEMP 36.1–36.9; O2SAT 95–98; BMI 41.8
[2024-04-20 06:15] LABS: Basophils % (Auto) 0 % (0-2.5); Eosinophils # (Auto) 0.2 Thou/mm3 (0.0-0.5); Eosinophils % (Auto) 1 % (0-10); Immature Granulocytes % (Auto) 1 % (0-0); Immature Granulocytes Auto 0.06 Thou/mm3 (0.00-0.00); Lymphocytes # (Auto) 2.2 Thou/mm3 (1.0-4.8); Lymphocytes % (Auto) 19 % (10-50); Mean Corpuscular HGB Conc 33.3 g/dl (31.0-37.0); Mean Corpuscular Hemoglobin 29.3 pg (25.0-35.0); Mean Corpuscular Volume 88 fL (80-100); Monocytes # (Auto) 0.6 Thou/mm3 (0.0-0.8); Monocytes % (Auto) 5 % (0-12); Neutrophils # (Auto) 8.8 Thou/mm3 (1.8-7.7); Neutrophils % (Auto) 74 % (37-80); Nucleated Red Blood Cell % 0 /100 WBC (0); Platelet Count 121 Thou/mm3 (140-440); RDW Standard Deviation 46.4 fL (36.4-46.3); Red Blood Count 4.78 Miln/mm3 (4.00-5.20); White Blood Count 11.8 Thou/mm3 (3.6-11.0)
[2024-04-20 06:42] LABS: Alanine Aminotransferase 25 U/L (10-49); Albumin/Globulin Ratio 1.5 (1.2-2.2); Alkaline Phosphatase 70 U/L (46-116); Anion Gap 10 (7-16); Aspartate Amino Transferase 27 U/L (0-34); BUN/Creatinine Ratio 16 Ratio (12-20); Bilirubin,Total 0.7 mg/dL (0.3-1.2); Blood Urea Nitrogen 19 mg/dL (9-23); Calcium 9.1 mg/dL (8.3-10.6); Calcium (Corrected) 9.1 mg/dL (8.5-10.1); Carbon Dioxide 19.1 mMol/L (20.0-31.0); Chloride 114 mMol/L (98-107); Creatinine (Component) 1.2 mg/dL (0.6-1.3); Estimated Creatinine Clearance 48.8 mL/min (>60); Globulin 2.6 gm/dL (2.3-3.5); Glucose 133 mg/dL (74-106); Magnesium 1.7 mg/dL (1.6-2.6); Osmolality,Calculated 289 (275-295); Potassium 3.5 mMol/L (3.4-5.1); Sodium 143 mMol/L (136-145); Total Protein 6.6 gm/dL (5.7-8.2); eGFR 48 See Note
--- NOTE | 2024-04-20 07:21 | PD.IDPROG ---
Subjective Subjective Interval history: on high dose merrem for uti in afebrile 73 y/o with pyuria but no noted sx with hx of dementia. organism s to other agents. carlos resolved. will ask for s to fosfomycin and change to po x 1 and see pt tuesday if she remains in house. if not s to fosfomycin, you may have to give an alternative agent based on listed S Exam Vital Signs Temp Pulse Resp BP Pulse Ox O2 Del Method O2 Flow Rate 97.2 F 84 12 136/110 H 98 Room Air 1 04/20/24 04:00 04/20/24 07:06 04/20/24 07:06 04/20/24 04:00 04/20/24 04:00 04/20/24 04:00 04/19/24 09:20 Narrative Exam not seen. will not be in today due to logistics Objective - Internal Medicine Labs 04/20/24 04:35 04/20/24 04:35 Labs: Laboratory Results - last 24 hr 04/19/24 04/20/24 04:47 04:35 WBC 11.8 H RBC 4.78 Hgb 14.0 Hct 42.0 MCV 88 MCH 29.3 MCHC 33.3 RDW Std Deviation 46.4 H Plt Count 121 L Neut % (Auto) 74 Lymph % (Auto) 19 [place] % (Auto) 5 Eos % (Auto) 1 Baso % (Auto) 0 Neut # (Auto) 8.8 H Lymph # (Auto) 2.2 [place] # (Auto) 0.6 Eos # (Auto) 0.2 Baso # (Auto) 0.0 Immature Gran # (Auto) 0.06 H Absolute Nucleated RBC 0.00 Immature Gran % 1 H Nucleated RBC % 0 Sodium 143 Potassium 3.5 Chloride 114 H Carbon Dioxide 19.1 L Anion Gap 10 BUN 19 Creatinine 1.2 Estim Creat Clear Calc 48.8 L eGFR 48 L BUN/Creatinine Ratio 16 Glucose 133 H Calculated Osmolality 289 Calcium 9.1 Corrected Calcium 9.1 Phosphorus 2.0 L Magnesium 1.7 Total Bilirubin 0.7 AST 27 ALT 25 Alkaline Phosphatase 70 Total Protein 6.6 Albumin 4.0 Globulin 2.6 Albumin/Globulin Ratio 1.5 Free T4 1.83 H ABG Interpretation ABG results: 04/15/24 21:39 ABG pH 7.40 ABG pCO2 46 ABG pO2 103 ABG HCO3 28 H ABG O2 Saturation 98 ABG Base Excess 3 Assessment & Plan A&P Narrative abnormal urine in 73 y/o w/o sx or signs of infection (afebrile) dementia hx of breast ca hypercalcemia, suggestive of metastatic disease. not proven. dnr status changed merrem to one dose fosfomycin 3 gm po x 1. will see formally tuesday if remains in house at that time Time Spent With Patient Time: Total time spent is greater than 50% in coordination of care (as documented) at patient's floor/unit and/or counseling patient:
[2024-04-20] MEDS: NAPH,KPH MBDB 1 PACKET (1.5 GM) PO (07:42)
[2024-04-20] MEDS: INSULIN LISPRO (AdmeLOG) 1 UNIT/0.01 ML UNIT SC ×2 (07:51→11:21)
[2024-04-20] MEDS: SENNA TABLET 1 TAB PO (08:35)
[2024-04-20] MEDS: AMIODARONE HCL 200 MG TABLET PO (08:35)
[2024-04-20] MEDS: FOSFOMYCIN PWD 3 GM PACKET (NON-FORMULARY) PO (08:35)
[2024-04-20] MEDS: HEPARIN SOD INJ 5000 UNIT/ML VIAL SC (08:53)
--- NOTE | 2024-04-20 10:12 | XR_ITS ---
Examination: MRI of brain without intravenous contrast. MRI brain with intravenous contrast. Date and time of exam:April 20, 2024 1446 hrs. Comparison December 30, 2023 Indications: Increasing altered mental status this week, lethargy, confusion, unable to answer questions, breast cancer diagnosis, history stroke left basal ganglia left brainstem on CT brain scan December 24, 2023 Technique: Multiple axial and sagittal images of the brain to been obtained. Siemens high-resolution 1.52 Jennifer short bore scanner utilized. Sagittal sections, T1 weighted images, TR 500, TE 14, are performed. Axial sections proton-density and T2-weighted images have been obtained. Inversion recovery axial images, TR 9260, TE 111, TR 2500. Diffusion weighted images, axial sections, TR 4800, TE 128, B value 1000. Axial sections, ADC map, TR 4800, TE 128. Axial and coronal images were also obtained post 20 cc gadolinium administered intravenously. Findings:: Enlargement of the sella turcica is not present. The optic chiasm and infundibular stalk are not remarkable. There is no localized enlargement of the medulla or jam. Fourth ventricle and cerebellar tonsils appear normal in position. No subacute area of hemorrhage density is seen. Fourth ventricle is midline. Mass in the cerebellopontine angle region is not evident. 7th and 8th nerve complexes exhibit symmetry Globes are symmetrical Orbital musculature including medial lateral rectus muscles do not exhibit abnormality Increased white matter signal is prominent Effacement of the cortical sulcal markings is not identified. Mass effect upon the ventricular system is not identified. 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
[2024-04-20] MEDS: hydrALAZINE INJ 20 MG/ML VIAL 10 MG IV (11:23)
--- NOTE | 2024-04-20 13:07 | ESPR_ITS ---
<Statement entered by Meghan Franco DO - 04/20/24 14:23> Senior attestation: Patient was examined and case was reviewed with team including attending physician. Note reviewed, I agree with most of its contents and agree with the patient's care. Patient's mentation improving, is AOx1 today. GI consulted for possible PEG tube, will speak with patient and family. MRI head/brain ordered following oncology recommendations. ID following, merem has been stopped and fosfomycin given x1. Meghan Franco DO PGY-3 Documentation for date of: 04/20/24 Subjective Subjective Interval history: Patient seen at bedside. No acute overnight events. Patient's mentation is slightly improved today, patient is alert oriented x 1, engages in conversation, at bedside. Patient is tolerating p.o. applesauce, started on p.o. meds. Patient is consuming 15 to 30% of meals, has poor p.o. intake. Consulted GI for possible PEG tube for nutrition. Kidney function improving with creatinine at 1.2 today. Infectious disease switched to meropenem to fosfomycin x 1 dose. Ordered MRI brain with and without contrast, will follow. Will continue to monitor patient Exam Vital Signs Temp Pulse Resp BP Pulse Ox O2 Del Method O2 Flow Rate 98.2 F 83 18 105/83 97 Room Air 1 04/20/24 07:57 04/20/24 11:23 04/20/24 07:57 04/20/24 11:58 04/20/24 07:57 04/20/24 07:57 04/20/24 07:57 Narrative Exam GENERAL: AAOX1, able to hold some conversation, oriented to self NEURO: No focal neurologic deficits HEENT: Dry mucosa. Eyes open, symmetrical, & clear CARDIO: Scar seein middle of chest from CABG.No chest pain on palpation. Heart RRR, no obvious murmurs PULM: No noted coughing/dyspnea. Lungs CTA B/L GI: Abdomen soft, nondistended, no pain on palpation. BSx4 URO/PROPERTY APPRAISER:: No further abnormalities noted. SKIN/MSK/EXT: No wounds/rashes/edema/amputations, no pain on palpation. Pedal pulses present B/L Objective Labs 04/22/24 05:44 04/22/24 05:44 Labs: Laboratory Results - last 24 hr 04/20/24 04:35 WBC 11.8 H RBC 4.78 Hgb 14.0 Hct 42.0 MCV 88 MCH 29.3 MCHC 33.3 RDW Std Deviation 46.4 H Plt Count 121 L Neut % (Auto) 74 Lymph % (Auto) 19 [place] % (Auto) 5 Eos % (Auto) 1 Baso % (Auto) 0 Neut # (Auto) 8.8 H Lymph # (Auto) 2.2 [place] # (Auto) 0.6 Eos # (Auto) 0.2 Baso # (Auto) 0.0 Immature Gran # (Auto) 0.06 H Absolute Nucleated RBC 0.00 Immature Gran % 1 H Nucleated RBC % 0 Sodium 143 Potassium 3.5 Chloride 114 H Carbon Dioxide 19.1 L Anion Gap 10 BUN 19 Creatinine 1.2 Estim Creat Clear Calc 48.8 L eGFR 48 L BUN/Creatinine Ratio 16 Glucose 133 H Calculated Osmolality 289 Calcium 9.1 Corrected Calcium 9.1 Phosphorus 2.0 L Magnesium 1.7 Total Bilirubin 0.7 AST 27 ALT 25 Alkaline Phosphatase 70 Total Protein 6.6 Albumin 4.0 Globulin 2.6 Albumin/Globulin Ratio 1.5 ABG Interpretation ABG results: 04/15/24 21:39 ABG pH 7.40 ABG pCO2 46 ABG pO2 103 ABG HCO3 28 H ABG O2 Saturation 98 ABG Base Excess 3 Quality Measures Quality Measures VTE prophylaxis Advance care planning discussed with:: patient and spouse Assessment & Plan Assessment Current Active Medications: Generic Name Dose Route Start Last Admin Trade Name Freq PRN Reason Stop Dose Admin Acetaminophen 650 mg 04/17/24 09:35 04/19/24 09:04 Acetaminophen 325 Mg Tablet PO 05/15/24 19:49 650 mg Q6H PRN Administration PAIN 1-3 OR FEVER > 101 Hydrocodone Bitart/Acetaminophen 1 tab 04/15/24 19:54 Hydrocodone/Apap 10/325 Tab PO 04/20/24 19:53 Q6HR PRN PAIN SCALE 4-10(Mod-Sev Amiodarone HCl 200 mg 04/16/24 09:00 04/20/24 08:35 Amiodarone Hcl 200 Mg Tablet PO 05/16/24 08:59 200 mg QDAY SABINA Administration Apixaban 5 mg 04/15/24 21:00 04/17/24 20:47 Apixaban 2.5 Mg Tablet PO 05/15/24 20:59 Not Given BID SABINA Dextrose 25 ml 04/15/24 19:56 Dextrose 50%-Water Inj 50 Ml Syringe IV 05/15/24 19:55 Q15MIN PRN BG 50-70 responsive npo pt Dextrose 50 ml 04/15/24 19:56 Dextrose 50%-Water Inj 50 Ml Syringe IV 05/15/24 19:55 Q15MIN PRN BG <50 OR BG <70 & pt unresponsive Glucagon 1 mg 04/15/24 19:56 Glucagon Inj 1 Mg Vial IM Q15MIN PRN BG <70, and no IV access Hydralazine HCl 10 mg 04/16/24 10:01 04/20/24 11:23 Hydralazine Inj 20 Mg/Ml Vial IV 05/16/24 05:29 10 mg Q6H PRN Administration sbp>160 Insulin Human Lispro 0 unit 04/17/24 11:30 04/20/24 11:21 Insulin Lispro (Admelog) 1 Unit/0.01 Ml Unit SC 05/17/24 11:29 1 unit AC SABINA Administration Protocol Ondansetron HCl 4 mg 04/15/24 19:50 Ondansetron Inj 2 Mg/Ml Inj 2 Ml IV 05/15/24 19:49 Q6H PRN NAUSEA OR VOMITING Protocol Sennosides 1 tab 04/16/24 09:00 04/20/24 08:35 Senna Tablet PO 05/16/24 08:59 1 tab QDAY SABINA Administration Protocol Plan Summary: The patient is a 73-year-old female with past medical history of CABG complicated with wound infection, subsequently had operative debridement and wound VAC was placed, has a wide deep scar in the middle of the chest, history of partial mastectomy due to breast cancer, completed full course of radiation in 2021, history of recurrent UTIs, dementia, history of hypercalcemia of malignancy was admitted for acute metabolic encephalopathy most likely secondary due to hypercalcemia, dehydration, UTI, versus worsening baseline dementia. #Acute metabolic encephalopathy secondary to hypercalcemia and hypernatremia #Hypercalcemia, possibly due to hypercalcemia of malignancy #ESBL UTI #WILLIAM most likely prerenal in the setting of dehydration Patient presented with worsening baseline mentation Patient has a history of hypercalcemia most likely secondary due to malignancy, and recently has been taking vitamin D/calcium vitamins also stated that for the last week patient had very poor oral intake was not eating and drinking enough CT head was negative for any hemorrhage, mass or midline shift Labs revealed hypercalcemia with calcium of 13.8, sodium 155, chloride is 118, hemoglobin is 16.5, hematocrit 51.2, WILLIAM with creatinine of 2.8, BUN 15 6, all this labs consistent with severe dehydration, hemoconcentration. Patient received 1 L bolus of NS and is currently on D5W at 100 cc/h. She also received IV calcitonin x 1 and denosumab, initially parathyroid was within normal limits, post calcitonin and denosumab it was elevated, low suspicion primary hyperparathyroidism, consider outpatient workup for hypercalcemia. For UTI, patient is on IV ceftriaxone initially, culture showed resistance to ceftriaxone, started on meropenem, eventually switched to fosfomycin by infectious disease Will continue IV fluids and monitor calcium levels as well as follow-up blood and urine cultures. 04/19/2024- Patient's mentation is slightly improved today, patient is alert oriented x 1, engages in conversation, at bedside. Patient is tolerating p.o. applesauce, started on p.o. meds. Patient is consuming 15 to 30% of meals, has poor p.o. intake. Consulted GI for possible PEG tube for nutrition. Kidney function improving with creatinine at 1.2 today. Infectious disease switched to meropenem to fosfomycin x 1 dose Plan: -Consulted GI, consider PEG tube placement -Completed antibiotic therapy, per ID recommendations -Corrected Calcium within normal limits -Aspiration precaution -Nephrology consulted, appreciate recommendations # Poor oral intake Patient's at bedside reports patient has poor oral intake due to waxing and waning mentation at home, unable to finish meals. Patient had poor p.o. intake during the hospital stay, only able to consume 15 to 20% of meals Consulted GI for possible PEG tube placement Continue aspiration precautions #Hypernatremia-resolved #Hypokalemia-resolved #Hypophosphatemia Admitting potassium-3.0. Today, potassium is 3.4 Admitting sodium-155 with osmolality of 326. Na today, 147 Free water deficit- 3.7L Plan: -Patient was given Neutra-Phos X1 -Continue to monitor CMP in a.m. -Replete electrolytes as indicated # History of type II DM Patient was on home Ozempic A1c-6 -Insulin sliding scale -hypoglycemic protocole is placed -monitor fingerstick blood glucose #History of DVT and PE Patient is on eliquis 5mg BID Wells score for PE 4.0 moderate risk -Resumed home dose Eliquis # History of CAD s/p CABG #HTN #HLD #Hx of RLS #Hx of dementia -Patient is on memantine, atorvastatin and pramipexole at home -Blood pressure soft, will hold antihypertensives -Patient is on -Patient more alert today, able to swallow, will consider starting in a.m. if patient is able to maintain good mentation #History of breast cancer s/p mastectomy and radiation MRI which was done in 12/30/2023 showed increased white matter signal in the posterior oral right temporal parietal lobe with septal enhancement of the cortex. they have been trying to get an appointment with Dr. Uriostegui, but bc of transportation issues they did not succeed Plan: -Ordered MRI brain with and without contrast -Oncology consulted, appreciate recommendations Disposition: Telemetry DVT prophylaxis: Apixaban GI prophylaxis: PPI Diet: Cardiac CODE STATUS:DNR Case was discussed with senior resident Dr Franco PGY-3 and attending physician, Dr Berry Menjivar PGY-1 Attending Provider Attestation/Addendum 74-year-old female with multiple comorbidities including hypertension, hyperlipidemia, type 2 diabetes mellitus with subsequent CAD status post CABG, breast cancer status post partial mastectomy and chemoradiation back in 2021 and multiple admissions in the past for acute encephalopathy secondary to hypercalcemia who presented back again to the ER on 04/15/2024 with complaints of acute metabolic encephalopathy secondary to hypercalcemia and hypernatremia with UTI subsequently started on IV fluid resuscitation. In addition, patient at baseline is alert and oriented to name and failed swallow evaluation and likely will need PEG tube placement. As of now, calcium improving still with hypernatremia and plan to continue IV fluid resuscitation and monitor patient closely. Currently, patient is alert and oriented to name and able to answer simple questions, appears to be back at baseline. GI consulted for possible PEG tube placement. I reviewed above note and agree with findings and plans. I have also personally examined the patient with medicine team and went over assessment and plan with medical team including internal audit manager and resident physician.
--- NOTE | 2024-04-20 14:23 | PC.SS ---
Rounding note: patient will be staying. Pending MRI and consult if PEG will be needed.
[2024-04-20] MEDS: ACETAMINOPHEN 325 MG TABLET 650 MG PO (15:39)
--- NOTE | 2024-04-20 16:40 | PD.IMCONS ---
HPI Data of Consult Requesting Physician: Pratima Smart MD Primary Care Provider: Physician No Primary/Family Consult Narrative Reason for consult: Failure to thrive sodium 155 calcium 12.7 on admission History of present illness: 73 years old female who has a history of stage IIa left breast carcinoma August 2022 requiring partial mastectomy and postoperative radiotherapy who presented to the hospital with hypercalcemia calcium level of 12.7 and hyponatremia with a sodium level 155 She has not eaten for days and weeks according to the And has failure to thrive and I have been asked for placement of a gastrostomy tube for nutrition support hydration cc:: cc: Pratima Smart MD Review of Systems Review of Systems ROS Unobtainable: unobtainable due to medical condition Past Medical History Surgical History OTHER SURGICAL HX: As in the history of present illness Meds Home Medications and Allergies Home Medications ?Medication ?Instructions ?Recorded ?Confirmed ?Type atorvastatin 40 mg tablet (Lipitor) 80 mg PO HS #0 tabs 09/07/16 04/16/24 History omeprazole 20 mg capsule,delayed 20 mg PO QDAY ##0 09/07/16 12/24/23 History release amiodarone 200 mg tablet 200 mg PO QDAY 03/25/22 04/19/24 History anastrozole 1 mg tablet 1 mg PO QDAY 03/25/22 04/19/24 History apixaban 5 mg tablet (Eliquis) 5 mg PO BID 03/25/22 04/19/24 History hydrocodone 10 mg-acetaminophen 1 tab PO QID PRN Pain, Moderate 03/25/22 04/19/24 History 325 mg tablet memantine 10 mg tablet 5 mg PO QDAY 03/25/22 04/19/24 History pramipexole 0.5 mg tablet 0.5 mg PO HS 03/25/22 04/19/24 History alendronate 35 mg tablet 20 mg PO WMHS 08/02/23 12/24/23 History sennosides 8.6 mg tablet (Senna 8.6 mg PO QDAY 08/02/23 04/19/24 History Lax) triazolam 0.125 mg tablet 0.25 mg PO HS PRN Insomnia 08/02/23 04/16/24 History calcium 600 mg (as carbonate)-vit 1 tab PO BID 12/24/23 12/24/23 History D3 20 mcg (800 unit) chewable tablet (Caltrate plus D) nifedipine 30 mg tablet,extended 30 mg PO QDAY 12/24/23 12/24/23 History release 24 hr bisacodyl 5 mg tablet,delayed 5 mg PO BID 12/28/23 04/19/24 History release (Dulcolax (bisacodyl)) fluoxetine 20 mg capsule 20 mg PO HS 12/28/23 04/19/24 History gabapentin 600 mg tablet 100 mg PO HS 12/28/23 04/16/24 History multivitamin 1 cap PO QDAY 12/28/23 12/28/23 History sitagliptin phosphate 100 mg 100 mg PO QDAY 12/28/23 12/28/23 History tablet (Januvia) Allergies Allergy/AdvReac Type Severity Reaction Status Date / Time meperidine Allergy Mild VOMITING Verified 03/26/22 08:51 tetracycline Allergy Mild RASH Verified 03/26/22 08:51 Exam Vital Signs Temp Pulse Resp BP Pulse Ox O2 Del Method O2 Flow Rate 97.9 F 89 19 105/83 97 Room Air 0 04/20/24 12:00 04/20/24 12:00 04/20/24 12:00 04/20/24 12:00 04/20/24 12:00 04/20/24 12:00 04/20/24 12:00 somnolent but arousable Constitutional Comments: Chronically ill-appearing Routine Respiratory Exam Comments: Normal to auscultation Routine Abdominal Exam Comments: Soft nontender Results Labs 04/20/24 04:35 04/20/24 04:35 Labs: Short CBC 04/20/24 Range/Units 04:35 WBC 11.8 H (3.6-11.0) Thou/mm3 Hgb 14.0 (12.0-16.0) g/dL Hct 42.0 (36.0-46.0) % Plt Count 121 L (140-440) Thou/mm3 BMP 04/20/24 04:35 Sodium 143 Potassium 3.5 Chloride 114 H Carbon Dioxide 19.1 L BUN 19 Creatinine 1.2 Glucose 133 H Calcium 9.1 Liver Function 04/20/24 Range/Units 04:35 Total Bilirubin 0.7 (0.3-1.2) mg/dL AST 27 (0-34) U/L ALT 25 (10-49) U/L Alkaline Phosphatase 70 (46-116) U/L Albumin 4.0 (3.4-4.8) gm/dL ABG Interpretation ABG results: 04/15/24 21:39 ABG pH 7.40 ABG pCO2 46 ABG pO2 103 ABG HCO3 28 H ABG O2 Saturation 98 ABG Base Excess 3 Assessment and Plan Additional Assessment & Plan Additional Plan: # Failure to thrive # Hypernatremia # Hypercalcemia Plan Consent obtained for placement of a percutaneous endoscopic gastrostomy tube via fiberoptic esophagogastroduodenoscopy under intravenous moderate sedation Patient is somewhat obese and it may be a challenge to find the proper spot for placement of a gastrostomy tube but and attempt should be made Thank you very much for the opportunity to participate in the care of this patient
[2024-04-20] MEDS: APIXABAN 2.5 MG TABLET 5 MG PO (20:33)
[2024-04-21] VITALS (12 sets, daily range): BP systolic 111–181; BP diastolic 78–109; PULSE 67–111; RESP 12–95; TEMP 36.1–36.4; O2SAT 94–96; BMI 41.6
[2024-04-21 06:59] LABS: Basophils % (Auto) 0 % (0-2.5); Eosinophils # (Auto) 0.2 Thou/mm3 (0.0-0.5); Eosinophils % (Auto) 2 % (0-10); Hematocrit 38.8 % (36.0-46.0); Hemoglobin 12.9 g/dL (12.0-16.0); Immature Granulocytes % (Auto) 1 % (0-0); Immature Granulocytes Auto 0.05 Thou/mm3 (0.00-0.00); Lymphocytes # (Auto) 2.1 Thou/mm3 (1.0-4.8); Lymphocytes % (Auto) 22 % (10-50); Mean Corpuscular HGB Conc 33.2 g/dl (31.0-37.0); Mean Corpuscular Hemoglobin 29.3 pg (25.0-35.0); Mean Corpuscular Volume 88 fL (80-100); Monocytes # (Auto) 0.6 Thou/mm3 (0.0-0.8); Monocytes % (Auto) 6 % (0-12); Neutrophils # (Auto) 6.6 Thou/mm3 (1.8-7.7); Neutrophils % (Auto) 69 % (37-80); Nucleated Red Blood Cell % 0 /100 WBC (0); Platelet Count 115 Thou/mm3 (140-440); RDW Standard Deviation 46.8 fL (36.4-46.3); White Blood Count 9.5 Thou/mm3 (3.6-11.0)
[2024-04-21 07:19] LABS: Ammonia 19 uMol/L (11-32)
[2024-04-21 07:24] LABS: Alanine Aminotransferase 19 U/L (10-49); Albumin, Serum 3.8 gm/dL (3.4-4.8); Albumin/Globulin Ratio 1.6 (1.2-2.2); Alkaline Phosphatase 68 U/L (46-116); Anion Gap 9 (7-16); Aspartate Amino Transferase 19 U/L (0-34); BUN/Creatinine Ratio 15 Ratio (12-20); Bilirubin,Total 0.6 mg/dL (0.3-1.2); Blood Urea Nitrogen 16 mg/dL (9-23); Calcium 8.3 mg/dL (8.3-10.6); Calcium (Corrected) 8.5 mg/dL (8.5-10.1); Carbon Dioxide 18.8 mMol/L (20.0-31.0); Chloride 113 mMol/L (98-107); Creatinine (Component) 1.1 mg/dL (0.6-1.3); Estimated Creatinine Clearance 53.1 mL/min (>60); Globulin 2.4 gm/dL (2.3-3.5); Glucose 141 mg/dL (74-106); Magnesium 1.6 mg/dL (1.6-2.6); Osmolality,Calculated 284 (275-295); Potassium 3.7 mMol/L (3.4-5.1); Sodium 141 mMol/L (136-145); Thyroid Stimulating Hormone 1.16 uIU/mL (0.55-4.78); Total Protein 6.2 gm/dL (5.7-8.2); eGFR 53 See Note
[2024-04-21 07:38] LABS: Syphilis Nonreactive (Nonreactive)
--- NOTE | 2024-04-21 07:40 | PD.IDPROG ---
Subjective Subjective Interval history: single pos bc with coag neg unlikely to be pathogenic Exam Vital Signs Temp Pulse Resp BP Pulse Ox O2 Del Method O2 Flow Rate 97.5 F 80 13 117/95 H 96 Room Air 3 04/21/24 03:59 04/21/24 04:00 04/21/24 03:59 04/21/24 03:59 04/21/24 03:59 04/21/24 03:59 04/20/24 17:45 Narrative Exam not seen. data reviewed. Objective - Internal Medicine Labs 04/21/24 06:29 04/21/24 06:29 Labs: Laboratory Results - last 24 hr 04/21/24 06:29 WBC 9.5 RBC 4.40 Hgb 12.9 Hct 38.8 MCV 88 MCH 29.3 MCHC 33.2 RDW Std Deviation 46.8 H Plt Count 115 L Neut % (Auto) 69 Lymph % (Auto) 22 [place] % (Auto) 6 Eos % (Auto) 2 Baso % (Auto) 0 Neut # (Auto) 6.6 Lymph # (Auto) 2.1 [place] # (Auto) 0.6 Eos # (Auto) 0.2 Baso # (Auto) 0.0 Immature Gran # (Auto) 0.05 H Absolute Nucleated RBC 0.00 Immature Gran % 1 H Nucleated RBC % 0 Sodium 141 Potassium 3.7 Chloride 113 H Carbon Dioxide 18.8 L Anion Gap 9 BUN 16 Creatinine 1.1 Estim Creat Clear Calc 53.1 L eGFR 53 L BUN/Creatinine Ratio 15 Glucose 141 H Calculated Osmolality 284 Calcium 8.3 Corrected Calcium 8.5 Phosphorus 2.0 L Magnesium 1.6 Total Bilirubin 0.6 AST 19 ALT 19 Alkaline Phosphatase 68 Ammonia 19 Total Protein 6.2 Albumin 3.8 Globulin 2.4 Albumin/Globulin Ratio 1.6 TSH 1.16 Syphilis Serology Nonreactive ABG Interpretation ABG results: 04/15/24 21:39 ABG pH 7.40 ABG pCO2 46 ABG pO2 103 ABG HCO3 28 H ABG O2 Saturation 98 ABG Base Excess 3 Assessment & Plan A&P Narrative ?uti in afebrile person with dementia but abnormal ua and marked dehydration feeding tube is a personal decision. stopped the ancef the other day. no ongoing abx. disposition at your discretion Time Spent With Patient Time: Total time spent is greater than 50% in coordination of care (as documented) at patient's floor/unit and/or counseling patient:
[2024-04-21] MEDS: INSULIN LISPRO (AdmeLOG) 1 UNIT/0.01 ML UNIT SC ×2 (07:49→12:03)
[2024-04-21] MEDS: hydrALAZINE INJ 20 MG/ML VIAL 10 MG IV (08:20)
--- NOTE | 2024-04-21 08:32 | PC.CM ---
Addendum entered by Alice Hernandez RN 04/21/24 18:37: HH referral sent on [facility]. Awaiting responses. Pending Start of care date. Addendum entered by Alice Hernandez RN 04/21/24 08:40: Per SS pt PCP is Dr. Lozada Grace. Original Note: received call from Rhoda [facility] that pt needs HH for peg management and tube feedings. Entered pt on [facility]. Pending HH orders. Per [facility] notes, is asking for [facility] home [facility].
[2024-04-21] MEDS: NAPH,KPH MBDB 1 PACKET (1.5 GM) GT ×2 (09:55→20:39)
[2024-04-21] MEDS: APIXABAN 2.5 MG TABLET 5 MG GT ×2 (09:56→20:39)
[2024-04-21] MEDS: AMIODARONE HCL 200 MG TABLET GT (09:56)
[2024-04-21] MEDS: SENNOSIDES SYRUP 8.8 MG/5 ML UDC GT (09:56)
--- NOTE | 2024-04-21 10:59 | ESPR_ITS ---
<Statement entered by Meghan Franco DO - 04/21/24 20:32> Senior attestation: Patient was examined and case was reviewed with team including attending physician. Note reviewed, I agree with most of its contents and agree with the patient's care. PEG tube has been placed, wooden box maker/nutrition referral placed to initiate tube feeds, will advance to goal feeding rate prior to discharge. Case management team seeking home health, authorization pending. Meghan Franco DO PGY-3 Documentation for date of: 04/21/24 Subjective Subjective Interval history: Patient seen at bedside. No acute overnight events. Patient seen at bedside, sleeping comfortably, at bedside. Patient is status post PEG tube placement, started medications through G-tube. Will consult dietitian for nutrition recommendations, goal is to start patient on tube feedings today. Patient completed treatment for UTI, infectious diseases consulted. Kidney function improving with creatinine at 1.1 today. Infectious disease switched to meropenem to fosfomycin x 1 dose. 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 Anticipate discharge in a.m. to home with home health, once patient is at goal rate of tube feeds and tolerating goal rate. Exam Vital Signs Temp Pulse Resp BP Pulse Ox O2 Del Method O2 Flow Rate 97.0 F 80 18 181/109 H 95 Room Air 3 04/21/24 08:00 04/21/24 09:56 04/21/24 08:00 04/21/24 09:56 04/21/24 08:00 04/21/24 03:59 04/20/24 17:45 Narrative Exam GENERAL: AAOX1 at times, able to hold some conversation, oriented to self NEURO: No focal neurologic deficits HEENT: Dry mucosa. Eyes open, symmetrical, & clear CARDIO: Scar seein middle of chest from CABG.No chest pain on palpation. Heart RRR, no obvious murmurs PULM: No noted coughing/dyspnea. Lungs CTA B/L GI: Abdomen soft, nondistended, no pain on palpation. BSx4 URO/[place]:: No further abnormalities noted. SKIN/MSK/EXT: No wounds/rashes/edema/amputations, no pain on palpation. Pedal pulses present B/L Objective Labs 04/22/24 05:44 04/22/24 05:44 Labs: Laboratory Results - last 24 hr 04/21/24 06:29 WBC 9.5 RBC 4.40 Hgb 12.9 Hct 38.8 MCV 88 MCH 29.3 MCHC 33.2 RDW Std Deviation 46.8 H Plt Count 115 L Neut % (Auto) 69 Lymph % (Auto) 22 [place] % (Auto) 6 Eos % (Auto) 2 Baso % (Auto) 0 Neut # (Auto) 6.6 Lymph # (Auto) 2.1 [place] # (Auto) 0.6 Eos # (Auto) 0.2 Baso # (Auto) 0.0 Immature Gran # (Auto) 0.05 H Absolute Nucleated RBC 0.00 Immature Gran % 1 H Nucleated RBC % 0 Sodium 141 Potassium 3.7 Chloride 113 H Carbon Dioxide 18.8 L Anion Gap 9 BUN 16 Creatinine 1.1 Estim Creat Clear Calc 53.1 L eGFR 53 L BUN/Creatinine Ratio 15 Glucose 141 H Calculated Osmolality 284 Calcium 8.3 Corrected Calcium 8.5 Phosphorus 2.0 L Magnesium 1.6 Total Bilirubin 0.6 AST 19 ALT 19 Alkaline Phosphatase 68 Ammonia 19 Total Protein 6.2 Albumin 3.8 Globulin 2.4 Albumin/Globulin Ratio 1.6 TSH 1.16 Syphilis Serology Nonreactive ABG Interpretation ABG results: 04/15/24 21:39 ABG pH 7.40 ABG pCO2 46 ABG pO2 103 ABG HCO3 28 H ABG O2 Saturation 98 ABG Base Excess 3 Quality Measures Quality Measures VTE prophylaxis Advance care planning discussed with:: patient and spouse Assessment & Plan Assessment Current Active Medications: Generic Name Dose Route Start Last Admin Trade Name Freq PRN Reason Stop Dose Admin Acetaminophen 650 mg 04/17/24 09:35 04/20/24 15:39 Acetaminophen 325 Mg Tablet PO 05/15/24 19:49 650 mg Q6H PRN Administration PAIN 1-3 OR FEVER > 101 Amiodarone HCl 200 mg 04/21/24 09:00 04/21/24 09:56 Amiodarone Hcl 200 Mg Tablet GT 05/21/24 08:59 200 mg QDAY SABINA Administration Amlodipine Besylate 5 mg 04/22/24 09:00 Amlodipine Besylate 5 Mg Tablet GT 05/22/24 08:59 QDAY SABINA Apixaban 5 mg 04/21/24 09:00 04/21/24 09:56 Apixaban 2.5 Mg Tablet GT 05/21/24 08:59 5 mg BID SABINA Administration Dextrose 25 ml 04/15/24 19:56 Dextrose 50%-Water Inj 50 Ml Syringe IV 05/15/24 19:55 Q15MIN PRN BG 50-70 responsive npo pt Dextrose 50 ml 04/15/24 19:56 Dextrose 50%-Water Inj 50 Ml Syringe IV 05/15/24 19:55 Q15MIN PRN BG <50 OR BG <70 & pt unresponsive Glucagon 1 mg 04/15/24 19:56 Glucagon Inj 1 Mg Vial IM Q15MIN PRN BG <70, and no IV access Hydralazine HCl 10 mg 04/21/24 09:27 Hydralazine Inj 20 Mg/Ml Vial IV 05/16/24 05:29 Q6H PRN sbp>160 Insulin Human Lispro 0 unit 04/17/24 11:30 04/21/24 07:49 Insulin Lispro (Admelog) 1 Unit/0.01 Ml Unit SC 05/17/24 11:29 1 unit AC SABINA Administration Protocol Ondansetron HCl 4 mg 04/15/24 19:50 Ondansetron Inj 2 Mg/Ml Inj 2 Ml IV 05/15/24 19:49 Q6H PRN NAUSEA OR VOMITING Protocol Potassium Phos/Sodium Phos 1 packet 04/21/24 09:00 04/21/24 09:55 [place],[facility] 1 Packet (1.5 Gm) GT 04/21/24 21:01 1 packet BID SABINA Administration Sennosides 8.8 mg 04/21/24 09:00 04/21/24 09:56 Sennosides Syrup 8.8 Mg/5 Ml Udc GT 05/21/24 08:59 8.8 mg QDAY SABINA Administration Protocol Plan Summary: The patient is a 73-year-old female with past medical history of CABG complicated with wound infection, subsequently had operative debridement and wound VAC was placed, has a wide deep scar in the middle of the chest, history of partial mastectomy due to breast cancer, completed full course of radiation in 2021, history of recurrent UTIs, dementia, history of hypercalcemia of malignancy was admitted for acute metabolic encephalopathy most likely secondary due to hypercalcemia, dehydration, UTI, versus worsening baseline dementia. # Status post PEG tube placement # Poor oral intake Patient's at bedside reports patient has poor oral intake due to waxing and waning mentation at home, unable to finish meals. Patient had poor p.o. intake during the hospital stay, only able to consume 15 to 20% of meals Plan: -Patient is status post PEG tube placement -Consulted registered dietitian, patient to be started on tube feeds today -Advance tube feeds as tolerated to goal rate -Started on free water flushes 150 cc every 4 hours -Consulted GI, appreciate recommendations -Continue aspiration precautions #Acute metabolic encephalopathy secondary to hypercalcemia and hypernatremia, resolving #Hypercalcemia, possibly due to hypercalcemia of malignancy #ESBL UTI #WILLIAM most likely prerenal in the setting of dehydration Patient presented with worsening baseline mentation Patient has a history of hypercalcemia most likely secondary due to malignancy, and recently has been taking vitamin D/calcium vitamins also stated that for the last week patient had very poor oral intake was not eating and drinking enough CT head was negative for any hemorrhage, mass or midline shift Labs revealed hypercalcemia with calcium of 13.8, sodium 155, chloride is 118, hemoglobin is 16.5, hematocrit 51.2, WILLIAM with creatinine of 2.8, BUN 15 6, all this labs consistent with severe dehydration, hemoconcentration. Patient received 1 L bolus of NS and is currently on D5W at 100 cc/h. She also received IV calcitonin x 1 and denosumab, initially parathyroid was within normal limits, post calcitonin and denosumab it was elevated, low suspicion primary hyperparathyroidism, consider outpatient workup for hypercalcemia. For UTI, patient is on IV ceftriaxone initially, culture showed resistance to ceftriaxone, started on meropenem, eventually switched to fosfomycin by infectious disease Will continue IV fluids and monitor calcium levels as well as follow-up blood and urine cultures. 04/19/2024- Patient is status post PEG tube placement, started medications through G-tube. Will consult dietitian for nutrition recommendations, goal is to start patient on tube feedings today. Patient completed treatment for UTI, infectious diseases consulted. Kidney function improving with creatinine at 1.1 today. Infectious disease switched to meropenem to fosfomycin x 1 dose. 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 Anticipate discharge in a.m. to home with home health, once patient is at goal rate of tube feeds and tolerating goal rate Plan: -Completed antibiotic therapy, per ID recommendations -Corrected Calcium within normal limits -Outpatient follow-up for hypercalcemia recommended -PEG tube placed, maintain nutrition and hydration via PEG tube -Nephrology consulted, appreciate recommendations #Hypernatremia-resolved #Hypokalemia-resolved #Hypophosphatemia Admitting potassium-3.0. Today, potassium is 3.4 Admitting sodium-155 with osmolality of 326. Na today, 147 Free water deficit- 3.7L Plan: -Patient was given Neutra-Phos X2 -Continue to monitor CMP in a.m. -Replete electrolytes as indicated # History of type II DM Patient was on home Ozempic A1c-6 Plan: -Insulin sliding scale -hypoglycemic protocole is placed -monitor fingerstick blood glucose #History of DVT and PE Patient is on eliquis 5mg BID Wells score for PE 4.0 moderate risk -Resumed home dose Eliquis via G-tube -Patient started on amiodarone via G-tube for A-fib # History of CAD s/p CABG #HTN #HLD #Hx of RLS #Hx of dementia -Patient is on memantine, atorvastatin and pramipexole at home -Patient is on amiodarone for A-fib, started on amlodipine 5 mg starting tomorrow via G-tube -Avoiding TRELL inhibitor/ARB because of patient's history of frequent WILLIAM's #History of breast cancer s/p mastectomy and radiation MRI which was done in 12/30/2023 showed increased white matter signal in the posterior oral right temporal parietal lobe with septal enhancement of the cortex. they have been trying to get an appointment with Dr. 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 Plan: -Follow-up outpatient with oncology -Oncology consulted, appreciate recommendations Disposition: Telemetry DVT prophylaxis: Apixaban GI prophylaxis: PPI Diet: Cardiac CODE STATUS:DNR Case was discussed with senior resident Dr Franco PGY-3 and attending physician, Dr Berry Menjivar PGY-1 Attending Provider Attestation/Addendum 74-year-old female with multiple comorbidities including hypertension, hyperlipidemia, type 2 diabetes mellitus with subsequent CAD status post CABG, breast cancer status post partial mastectomy and chemoradiation back in 2021 and multiple admissions in the past for acute encephalopathy secondary to hypercalcemia who presented back again to the ER on 04/15/2024 with complaints of acute metabolic encephalopathy secondary to hypercalcemia and hypernatremia with UTI subsequently started on IV fluid resuscitation. In addition, patient at baseline is alert and oriented to name and failed swallow evaluation and likely will need PEG tube placement. As of now, calcium improving still with hypernatremia and plan to continue IV fluid resuscitation and monitor patient closely. Currently, patient is alert and oriented to name and able to answer simple questions, appears to be back at baseline. Furthermore, GI was consulted and currently patient is status post PEG tube placement. Plan to initiate feeding and once that goal will discharge patient home with home health. I reviewed above note and agree with findings and plans. I have also personally examined the patient with medicine team and went over assessment and plan with medical team including customer operations intern and resident physician.
[2024-04-21] MEDS: ACETAMINOPHEN 325 MG TABLET 650 MG PO (14:50)
[2024-04-21] MEDS: ONDANSETRON INJ 2 MG/ML INJ 2 ML 4 MG IV (15:04)
--- NOTE | 2024-04-21 17:43 | ESPR_ITS ---
Documentation for date of: 04/21/24 Subjective Subjective Interval history: Patient evaluated Current rate of enteral hyperalimentation is 30 cc an hour PEG site looks good Exam Vital Signs Temp Pulse Resp BP Pulse Ox O2 Del Method O2 Flow Rate 97.2 F 87 15 117/78 95 Room Air 3 04/21/24 16:00 04/21/24 16:00 04/21/24 16:00 04/21/24 16:00 04/21/24 16:00 04/21/24 16:00 04/20/24 17:45 Objective Labs 04/21/24 06:29 04/21/24 06:29 Labs: Laboratory Results - last 24 hr 04/21/24 06:29 WBC 9.5 RBC 4.40 Hgb 12.9 Hct 38.8 MCV 88 MCH 29.3 MCHC 33.2 RDW Std Deviation 46.8 H Plt Count 115 L Neut % (Auto) 69 Lymph % (Auto) 22 [place] % (Auto) 6 Eos % (Auto) 2 Baso % (Auto) 0 Neut # (Auto) 6.6 Lymph # (Auto) 2.1 [place] # (Auto) 0.6 Eos # (Auto) 0.2 Baso # (Auto) 0.0 Immature Gran # (Auto) 0.05 H Absolute Nucleated RBC 0.00 Immature Gran % 1 H Nucleated RBC % 0 Sodium 141 Potassium 3.7 Chloride 113 H Carbon Dioxide 18.8 L Anion Gap 9 BUN 16 Creatinine 1.1 Estim Creat Clear Calc 53.1 L eGFR 53 L BUN/Creatinine Ratio 15 Glucose 141 H Calculated Osmolality 284 Calcium 8.3 Corrected Calcium 8.5 Phosphorus 2.0 L Magnesium 1.6 Total Bilirubin 0.6 AST 19 ALT 19 Alkaline Phosphatase 68 Ammonia 19 Total Protein 6.2 Albumin 3.8 Globulin 2.4 Albumin/Globulin Ratio 1.6 TSH 1.16 Syphilis Serology Nonreactive Impressions Impression: # Failure to thrive # Status postplacement of a PEG tube for enteral hyperalimentation Continue current management ABG Interpretation ABG results: 04/15/24 21:39 ABG pH 7.40 ABG pCO2 46 ABG pO2 103 ABG HCO3 28 H ABG O2 Saturation 98 ABG Base Excess 3 Assessment & Plan A&P Narrative ?uti in afebrile person with dementia but abnormal ua and marked dehydration feeding tube is a personal decision. stopped the ancef the other day. no ongoing abx. disposition at your discretion Time Spent With Patient Time: Total time spent is greater than 50% in coordination of care (as documented) at patient's floor/unit and/or counseling patient:
[2024-04-22] VITALS (11 sets, daily range): BP systolic 105–141; BP diastolic 66–91; PULSE 70–83; RESP 12–97; TEMP 36.1–36.3; O2SAT 94–98; BMI 41.6
[2024-04-22 06:57] LABS: Basophils % (Auto) 0 % (0-2.5); Eosinophils # (Auto) 0.2 Thou/mm3 (0.0-0.5); Eosinophils % (Auto) 2 % (0-10); Hematocrit 39.1 % (36.0-46.0); Hemoglobin 12.8 g/dL (12.0-16.0); Immature Granulocytes % (Auto) 1 % (0-0); Immature Granulocytes Auto 0.04 Thou/mm3 (0.00-0.00); Lymphocytes # (Auto) 2.4 Thou/mm3 (1.0-4.8); Lymphocytes % (Auto) 30 % (10-50); Mean Corpuscular HGB Conc 32.7 g/dl (31.0-37.0); Mean Corpuscular Volume 89 fL (80-100); Monocytes # (Auto) 0.6 Thou/mm3 (0.0-0.8); Monocytes % (Auto) 8 % (0-12); Neutrophils # (Auto) 4.9 Thou/mm3 (1.8-7.7); Neutrophils % (Auto) 60 % (37-80); Nucleated Red Blood Cell % 0 /100 WBC (0); Platelet Count 125 Thou/mm3 (140-440); RDW Standard Deviation 48.1 fL (36.4-46.3); Red Blood Count 4.41 Miln/mm3 (4.00-5.20); White Blood Count 8.2 Thou/mm3 (3.6-11.0)
[2024-04-22 07:05] LABS: Alanine Aminotransferase 15 U/L (10-49); Albumin, Serum 3.9 gm/dL (3.4-4.8); Albumin/Globulin Ratio 1.6 (1.2-2.2); Alkaline Phosphatase 71 U/L (46-116); Anion Gap 13 (7-16); Aspartate Amino Transferase 23 U/L (0-34); BUN/Creatinine Ratio 17 Ratio (12-20); Bilirubin,Total 0.6 mg/dL (0.3-1.2); Blood Urea Nitrogen 19 mg/dL (9-23); Calcium 8.1 mg/dL (8.3-10.6); Calcium (Corrected) 8.2 mg/dL (8.5-10.1); Carbon Dioxide 18.4 mMol/L (20.0-31.0); Chloride 110 mMol/L (98-107); Creatinine (Component) 1.1 mg/dL (0.6-1.3); Estimated Creatinine Clearance 53.1 mL/min (>60); Globulin 2.4 gm/dL (2.3-3.5); Glucose 127 mg/dL (74-106); Osmolality,Calculated 285 (275-295); Potassium 3.6 mMol/L (3.4-5.1); Sodium 141 mMol/L (136-145); Total Protein 6.3 gm/dL (5.7-8.2); eGFR 53 See Note
[2024-04-22] MEDS: INSULIN LISPRO (AdmeLOG) 1 UNIT/0.01 ML UNIT SC ×2 (08:05→16:55)
[2024-04-22] MEDS: SENNOSIDES SYRUP 8.8 MG/5 ML UDC GT (09:21)
[2024-04-22] MEDS: AMIODARONE HCL 200 MG TABLET GT (09:21)
[2024-04-22] MEDS: amLODIPine BESYLATE 5 MG TABLET GT (09:22)
[2024-04-22] MEDS: APIXABAN 2.5 MG TABLET 5 MG GT ×2 (09:23→22:15)
--- NOTE | 2024-04-22 11:32 | ESPR_ITS ---
Documentation for date of: 04/22/24 Subjective Subjective Interval history: Patient seen today at the bedside with at bedside, was not answering questions when examined mainly nodded when given yes or no questions. No overnight events. Vital signs stable at this time. Labs unremarkable at this time. Patient is s/p PEG tube placement currently tolerating feeds will advance diet as tolerated to goal. Anticipate discharge in the am tomorrow. Exam Vital Signs Temp Pulse Resp BP Pulse Ox O2 Del Method O2 Flow Rate 97.0 F 77 14 141/74 H 96 Room Air 3 04/22/24 08:00 04/22/24 09:22 04/22/24 08:00 04/22/24 09:22 04/22/24 08:00 04/22/24 08:00 04/20/24 17:45 Narrative Exam Physical Exam GENERAL: NAD, NC/AT, responsive/cooperative HEENT: Moist mucosa. Eyes open, symmetrical, & clear CARDIO: Heart RRR, scar from CABG surgery and debridement PULM: No noted coughing/dyspnea. Lungs CTA B/L GI: Abdomen soft, nondistended, no pain on palpation. BSx4 URO/CLEANER CARPET AND UPHOLSTERY:: No further abnormalities noted SKIN/MSK/EXT: No wounds/rashes/edema/amputations, no pain on palpation. Pedal pulses present B/L NEURO: limited, patient not answering questions, some nodding Objective Labs 04/22/24 05:44 04/22/24 05:44 Labs: Laboratory Results - last 24 hr 04/22/24 05:44 WBC 8.2 RBC 4.41 Hgb 12.8 Hct 39.1 MCV 89 MCH 29.0 MCHC 32.7 RDW Std Deviation 48.1 H Plt Count 125 L Neut % (Auto) 60 Lymph % (Auto) 30 [place] % (Auto) 8 Eos % (Auto) 2 Baso % (Auto) 0 Neut # (Auto) 4.9 Lymph # (Auto) 2.4 [place] # (Auto) 0.6 Eos # (Auto) 0.2 Baso # (Auto) 0.0 Immature Gran # (Auto) 0.04 H Absolute Nucleated RBC 0.00 Immature Gran % 1 H Nucleated RBC % 0 Sodium 141 Potassium 3.6 Chloride 110 H Carbon Dioxide 18.4 L Anion Gap 13 BUN 19 Creatinine 1.1 Estim Creat Clear Calc 53.1 L eGFR 53 L BUN/Creatinine Ratio 17 Glucose 127 H Calculated Osmolality 285 Calcium 8.1 L Corrected Calcium 8.2 L Total Bilirubin 0.6 AST 23 ALT 15 Alkaline Phosphatase 71 Total Protein 6.3 Albumin 3.9 Globulin 2.4 Albumin/Globulin Ratio 1.6 ABG Interpretation ABG results: 04/15/24 21:39 ABG pH 7.40 ABG pCO2 46 ABG pO2 103 ABG HCO3 28 H ABG O2 Saturation 98 ABG Base Excess 3 Quality Measures Quality Measures VTE prophylaxis Advance care planning discussed with:: patient Assessment & Plan Assessment Current Active Medications: Generic Name Dose Route Start Last Admin Trade Name Freq PRN Reason Stop Dose Admin Acetaminophen 650 mg 04/17/24 09:35 04/21/24 14:50 Acetaminophen 325 Mg Tablet PO 05/15/24 19:49 650 mg Q6H PRN Administration PAIN 1-3 OR FEVER > 101 Amiodarone HCl 200 mg 04/21/24 09:00 04/22/24 09:21 Amiodarone Hcl 200 Mg Tablet GT 05/21/24 08:59 200 mg QDAY SABINA Administration Amlodipine Besylate 5 mg 04/22/24 09:00 04/22/24 09:22 Amlodipine Besylate 5 Mg Tablet GT 05/22/24 08:59 5 mg QDAY SABINA Administration Apixaban 5 mg 04/21/24 09:00 04/22/24 09:23 Apixaban 2.5 Mg Tablet GT 05/21/24 08:59 5 mg BID SABINA Administration Dextrose 25 ml 04/15/24 19:56 Dextrose 50%-Water Inj 50 Ml Syringe IV 05/15/24 19:55 Q15MIN PRN BG 50-70 responsive npo pt Dextrose 50 ml 04/15/24 19:56 Dextrose 50%-Water Inj 50 Ml Syringe IV 05/15/24 19:55 Q15MIN PRN BG <50 OR BG <70 & pt unresponsive Glucagon 1 mg 04/15/24 19:56 Glucagon Inj 1 Mg Vial IM Q15MIN PRN BG <70, and no IV access Hydralazine HCl 10 mg 04/21/24 09:27 Hydralazine Inj 20 Mg/Ml Vial IV 05/16/24 05:29 Q6H PRN sbp>160 Insulin Human Lispro 0 unit 04/17/24 11:30 04/22/24 08:05 Insulin Lispro (Admelog) 1 Unit/0.01 Ml Unit SC 05/17/24 11:29 1 unit AC SABINA Administration Protocol Ondansetron HCl 4 mg 04/15/24 19:50 04/21/24 15:04 Ondansetron Inj 2 Mg/Ml Inj 2 Ml IV 05/15/24 19:49 4 mg Q6H PRN Administration NAUSEA OR VOMITING Protocol Sennosides 8.8 mg 04/21/24 09:00 04/22/24 09:21 Sennosides Syrup 8.8 Mg/5 Ml Udc GT 05/21/24 08:59 8.8 mg QDAY SABINA Administration Protocol Plan 73 y/o F with PMhx of CABG surgery complicated with wound infection s/p debridement, hx of breast ca s/p radiation and partial mastectomy, hx of rec UTIs, dementia and hypercalcemia of malignancy. Admitted due to Acute metabolic encephalopathy secondary to hypercalcemia, dehydration, UTI vs worsening dementia. #Poor PO intake s/p PEG tube placement patient with mentation changes at home per , and has had trouble to finish meals. During Hospital stay patient has not been able to consume most of her meals. Patient is s/p PEG tube, receiving nutrition, meds and hydration via PEG as well as supplements through PO route - Tube feeds advance as tolerated to goal - Continue free H20 flushes at 150ccs [id number] - GI on case appreciate reccs - On Aspiration precautions #Acute metabolic encephalopathy secondary to hypercalcemia and hypernatremia, resolving #Hypercalcemia, possibly due to hypercalcemia of malignancy #ESBL UTI #WILLIAM most likely prerenal in the setting of dehydration Patient with fluctuations in mental status, patient has hx of hypercalcemia likely due to malignancy states poor oral intake at home for >1 week On admission patient had Ca of 13.8, sodium 155, chloride is 118, hemoglobin is 16.5, hematocrit 51.2, WILLIAM with creatinine of 2.8, BUN 15 6, all this labs consistent with severe dehydration, hemoconcentration. Head CT was negative for hemorrahge, mass or midline shift received 1L of NS and had D5W at 100cc/hr , calcitoninx1 and denosumab, parathyroid was WNL, post calcitonin and denosumab was elevated, at this time there is low suspicion for primary hyperparathyroidism UTI was treated with Abx therapy and ID is on the case. Patient is s/p PEG receiving nutrition and medications through tube. 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 Anticipate discharge in a.m. to home with home health, once patient is at goal rate of tube feeds and tolerating goal rate -Completed antibiotic therapy, per ID recommendations -Corrected Calcium within normal limits -Outpatient follow-up for hypercalcemia recommended -Advance diet to goal, once at goal patient can be discharged -Nephrology consulted, appreciate recommendations #Hypernatremia-resolved #Hypokalemia-resolved #Hypophosphatemia Admitting potassium-3.0. Today, potassium is 3.6 Admitting sodium-155 with osmolality of 326. Na today, 141 -Continue to monitor CMP in a.m. -Replete electrolytes as indicated # History of type II DM Patient was on home Ozempic A1c 6.0 - SSI -hypoglycemia protocol #History of DVT and PE #Atrial fibrillation Patient is on eliquis 5mg BID Wells score for PE 4.0 moderate risk -Resumed home dose Eliquis via G-tube -Patient started on amiodarone via G-tube for A-fib # History of CAD s/p CABG #HTN #HLD #Hx of RLS #Hx of dementia -Patient is on memantine, atorvastatin and pramipexole at home -Patient is on amiodarone for A-fib -On amlodipine 5 mg starting tomorrow via G-tube -Avoiding TRELL inhibitor/ARB because of patient's history of frequent WILLIAM's #History of breast cancer s/p mastectomy and radiation MRI which was done in 12/30/2023 showed increased white matter signal in the posterior oral right temporal parietal lobe with septal enhancement of the cortex. Were unsuccessful coordinating with Dr. 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 -Follow-up outpatient with oncology -Oncology consulted, appreciate recommendations Case discussed with my senior Dr. Goins PGY-[address] Berry Montalvo MD PGY-1 Disposition: Telemetry, anticipate discharge in the am DVT prophylaxis: Eliquis GI prophylaxis: no Diet: glucerna 1.2, PEG tube feeds CODE STATUS:DNR Attending Provider Attestation/Addendum 74-year-old female with multiple comorbidities including hypertension, hyperlipidemia, type 2 diabetes mellitus with subsequent CAD status post CABG, breast cancer status post partial mastectomy and chemoradiation back in 2021 and multiple admissions in the past for acute encephalopathy secondary to hypercalcemia who presented back again to the ER on 04/15/2024 with complaints of acute metabolic encephalopathy secondary to hypercalcemia and hypernatremia with UTI subsequently started on IV fluid resuscitation. In addition, patient at baseline is alert and oriented to name and failed swallow evaluation and likely will need PEG tube placement. As of now, calcium improving still with hypernatremia and plan to continue IV fluid resuscitation and monitor patient closely. Currently, patient is alert and oriented to name and able to answer simple questions, appears to be back at baseline. Furthermore, GI was consulted and currently patient is status post PEG tube placement. Plan to initiate feeding and once that goal will discharge patient home with home health. Anticipate discharge in the next 24 hours once feeding is at goal. I reviewed above note and agree with findings and plans. I have also personally examined the patient with medicine team and went over assessment and plan with medical team including copywriting intern and resident physician.
[2024-04-22] MEDS: ACETAMINOPHEN 325 MG TABLET 650 MG PO (17:30)
--- NOTE | 2024-04-22 19:20 | PD.NEPHPROG ---
Documentation for date of: 04/22/24 Subjective Subjective Interval history: Ms. Haque is a 73-year-old female with past medical history of dementia, CABG (2018,left breast cancer s/p partial mastectomy), hypertension and Hx of hypercalcemia presents to ED accompanied with with chief complaints of altered mental status. Most of the history was taken from as well as per chart review. Symptoms started about a week ago, per patient had decreased appetite and oral intake, also for the last 3 months patient has been having visual hallucination, was seeing someone who is not present in the room. Last week per they had outpatient labs done, which was normal for the most part, however especially for the last 3 days, patient was becoming more somnolent, was not able to answer to questions, was not able to communicate, and was looking more altered. Subsequently has been decided to bring her to ED for further evaluation. On presentation patient was hemodynamically stable, saturating in room air. Labs revealed leukocytosis with WBC of 15.7, hemoglobin of 16.5, hematocrit 51.2, CMP revealed hypernatremia with sodium of 155, hypokalemia, potassium of 3.0, WILLIAM with BUN of 56, creatinine is 2.8, EGFR of 17, calcium is 13.8, UA is consistent with UTI, U tox is positive for opioids, patient is on [place] at home. CT head was negative for any hemorrhage, mass or midline shift. MRI which was done in 12/30/2023 showed increased white matter signal in the posterior oral right temporal parietal lobe with septal enhancement of the cortex. In ED patient was given 1 bolus of NS along with potassium IV. Nephrology consulted for WILLIAM, hyponatremia, hypercalcemia. Patient seen and examined in telemetry. Patient at the bedside, provided history. Patient receiving D5W IVF. Patient minimally responsive, did not follow commands, eyes open and tracking. Patient had mild edema in all extremities. Brown cath in place. Sodium 155, potassium 3.5, bicarb 23.5, BUN 34, creatinine 2.4, eGFR 21. Patient has 0.5 L urinary output. Corrected calcium 12.3, phosphorus 3.5, magnesium 2.4. PTH 47.3. Urinalysis indicating urine infection: 3+ protein, 4+ bacteria, 145 WBCs. Will continue with IVF, monitor. 04/22/2024 patient currently seen in telemetry. Daughter at bedside. More alert and awake. Due to acute renal failure, hypercalcemia, hyponatremia and decreased p.o. intake-patient did receive a PEG tube and is tolerating feedings and free water flushes. Denies any chest pain. Still bedbound. Will benefit from going to rehab. Blood sugar 173, blood pressure 105/76, heart rate 81. CBC normal, platelets 125. Sodium 141, potassium 3.6, bicarbonate 18.4, BUN 19, creatinine 1.1, calcium 8.2, LFTs normal Review of Systems Review of Systems Narrative Review of Systems: More alert and awake. Denies any chest pain. Denies any nausea, vomiting. Exam Vital Signs Temp Pulse Resp BP Pulse Ox O2 Del Method O2 Flow Rate 36.1 C 81 12 105/76 98 Room Air 3 04/22/24 16:00 04/22/24 16:00 04/22/24 16:00 04/22/24 16:00 04/22/24 16:00 04/22/24 16:00 04/20/24 17:45 Narrative Exam PE: Gen: Well-developed and well-nourished. Obese. HEENT: NCAT, PERRLA, EOMI, MMM, anicteric conjunctivae. CVS: normal S1 and S2. RRR. No M/R/G. Significant scar center chest due to infected surgical site s/p CABG. Resp: CTA B/L. No rhonchi, rales, crackles or wheezing. Poor breath sounds due to body habitus. Abd: soft, non-tender, non-distended. ++ Feeding tube MSK: Good ROM in BUE & BLE. No rash. Trace edema lower extremities. Neuro: follows commands. Awake and alert. Objective Labs 04/22/24 05:44 04/22/24 05:44 Labs: Laboratory Results - last 24 hr 04/22/24 05:44 WBC 8.2 RBC 4.41 Hgb 12.8 Hct 39.1 MCV 89 MCH 29.0 MCHC 32.7 RDW Std Deviation 48.1 H Plt Count 125 L Neut % (Auto) 60 Lymph % (Auto) 30 [place] % (Auto) 8 Eos % (Auto) 2 Baso % (Auto) 0 Neut # (Auto) 4.9 Lymph # (Auto) 2.4 [place] # (Auto) 0.6 Eos # (Auto) 0.2 Baso # (Auto) 0.0 Immature Gran # (Auto) 0.04 H Absolute Nucleated RBC 0.00 Immature Gran % 1 H Nucleated RBC % 0 Sodium 141 Potassium 3.6 Chloride 110 H Carbon Dioxide 18.4 L Anion Gap 13 BUN 19 Creatinine 1.1 Estim Creat Clear Calc 53.1 L eGFR 53 L BUN/Creatinine Ratio 17 Glucose 127 H Calculated Osmolality 285 Calcium 8.1 L Corrected Calcium 8.2 L Total Bilirubin 0.6 AST 23 ALT 15 Alkaline Phosphatase 71 Total Protein 6.3 Albumin 3.9 Globulin 2.4 Albumin/Globulin Ratio 1.6 ABG Interpretation ABG results: 04/15/24 21:39 ABG pH 7.40 ABG pCO2 46 ABG pO2 103 ABG HCO3 28 H ABG O2 Saturation 98 ABG Base Excess 3 Assessment & Plan Additional Assessment & Plan Additional Plan: Ms. Haque is a 73-year-old female with past medical history of dementia, CABG (2018,left breast cancer s/p partial mastectomy), hypertension and Hx of hypercalcemia presents to ED accompanied with with chief complaints of altered mental status. #WILLIAM Likely prerenal azotemia due to dehydration. BUN and creatinine markedly improved. Continue with free water flushes, 2 feeds. Plan: -Avoid nephrotoxic agents -Renally dose medications -Will continue to monitor #Hypercalcemia, likely related to immobilization--markedly improved-in fact on the lower side. Did receive denosumab. #Hypernatremia With free water flushes sodium 141. Currently stable. 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 Spoke to daughter-agrees for rehab.
--- NOTE | 2024-04-22 22:12 | ESPR_ITS ---
Documentation for date of: 04/22/24 Subjective Subjective Interval history: PEG site looks good No drainage at the PEG site Tolerating enteral feeding Exam Vital Signs Temp Pulse Resp BP Pulse Ox O2 Del Method O2 Flow Rate 97.4 F 71 17 125/66 94 L Room Air 3 04/22/24 20:00 04/22/24 20:00 04/22/24 20:00 04/22/24 20:00 04/22/24 20:00 04/22/24 20:00 04/20/24 17:45 Objective Labs 04/22/24 05:44 04/22/24 05:44 Labs: Laboratory Results - last 24 hr 04/22/24 05:44 WBC 8.2 RBC 4.41 Hgb 12.8 Hct 39.1 MCV 89 MCH 29.0 MCHC 32.7 RDW Std Deviation 48.1 H Plt Count 125 L Neut % (Auto) 60 Lymph % (Auto) 30 [place] % (Auto) 8 Eos % (Auto) 2 Baso % (Auto) 0 Neut # (Auto) 4.9 Lymph # (Auto) 2.4 [place] # (Auto) 0.6 Eos # (Auto) 0.2 Baso # (Auto) 0.0 Immature Gran # (Auto) 0.04 H Absolute Nucleated RBC 0.00 Immature Gran % 1 H Nucleated RBC % 0 Sodium 141 Potassium 3.6 Chloride 110 H Carbon Dioxide 18.4 L Anion Gap 13 BUN 19 Creatinine 1.1 Estim Creat Clear Calc 53.1 L eGFR 53 L BUN/Creatinine Ratio 17 Glucose 127 H Calculated Osmolality 285 Calcium 8.1 L Corrected Calcium 8.2 L Total Bilirubin 0.6 AST 23 ALT 15 Alkaline Phosphatase 71 Total Protein 6.3 Albumin 3.9 Globulin 2.4 Albumin/Globulin Ratio 1.6 Impressions Impression: # Failure to thrive # Status postplacement of a PEG tube for enteral hyperalimentation Continue current management ABG Interpretation ABG results: 04/15/24 21:39 ABG pH 7.40 ABG pCO2 46 ABG pO2 103 ABG HCO3 28 H ABG O2 Saturation 98 ABG Base Excess 3 Assessment & Plan A&P Narrative ?uti in afebrile person with dementia but abnormal ua and marked dehydration feeding tube is a personal decision. stopped the ancef the other day. no ongoing abx. disposition at your discretion Time Spent With Patient Time: Total time spent is greater than 50% in coordination of care (as documented) at patient's floor/unit and/or counseling patient:
[2024-04-23] VITALS (9 sets, daily range): BP systolic 100–146; BP diastolic 65–90; PULSE 66–78; RESP 12–95; TEMP 35.9–36.6; O2SAT 95–98; BMI 41.7
[2024-04-23 02:25] LABS: Folate 11.34 ng/mL (>5.38); Hepatitis C Antibody Non Reactive (Non React); Vitamin B12 376 pg/mL (211-911)
[2024-04-23 05:52] LABS: Basophils % (Auto) 0 % (0-2.5); Eosinophils # (Auto) 0.2 Thou/mm3 (0.0-0.5); Eosinophils % (Auto) 2 % (0-10); Hematocrit 35.9 % (36.0-46.0); Hemoglobin 11.9 g/dL (12.0-16.0); Immature Granulocytes % (Auto) 0 % (0-0); Immature Granulocytes Auto 0.02 Thou/mm3 (0.00-0.00); Lymphocytes # (Auto) 2.2 Thou/mm3 (1.0-4.8); Lymphocytes % (Auto) 29 % (10-50); Mean Corpuscular HGB Conc 33.1 g/dl (31.0-37.0); Mean Corpuscular Hemoglobin 29.5 pg (25.0-35.0); Mean Corpuscular Volume 89 fL (80-100); Monocytes # (Auto) 0.6 Thou/mm3 (0.0-0.8); Monocytes % (Auto) 8 % (0-12); Neutrophils # (Auto) 4.5 Thou/mm3 (1.8-7.7); Neutrophils % (Auto) 60 % (37-80); Nucleated Red Blood Cell % 0 /100 WBC (0); Platelet Count 125 Thou/mm3 (140-440); RDW Standard Deviation 47.8 fL (36.4-46.3); Red Blood Count 4.04 Miln/mm3 (4.00-5.20); White Blood Count 7.6 Thou/mm3 (3.6-11.0)
[2024-04-23 06:25] LABS: Alanine Aminotransferase 18 U/L (10-49); Albumin, Serum 3.5 gm/dL (3.4-4.8); Albumin/Globulin Ratio 1.3 (1.2-2.2); Alkaline Phosphatase 67 U/L (46-116); Anion Gap 9 (7-16); Aspartate Amino Transferase 22 U/L (0-34); BUN/Creatinine Ratio 21 Ratio (12-20); Bilirubin,Total 0.4 mg/dL (0.3-1.2); Blood Urea Nitrogen 21 mg/dL (9-23); Calcium 8.1 mg/dL (8.3-10.6); Calcium (Corrected) 8.5 mg/dL (8.5-10.1); Carbon Dioxide 22.4 mMol/L (20.0-31.0); Chloride 110 mMol/L (98-107); Estimated Creatinine Clearance 58.4 mL/min (>60); Globulin 2.6 gm/dL (2.3-3.5); Glucose 124 mg/dL (74-106); Magnesium 1.8 mg/dL (1.6-2.6); Osmolality,Calculated 285 (275-295); Phosphorous 2.2 mg/dL (2.4-5.1); Potassium 3.9 mMol/L (3.4-5.1); Sodium 141 mMol/L (136-145); Total Protein 6.1 gm/dL (5.7-8.2); eGFR 60 See Note
--- NOTE | 2024-04-23 08:32 | PC.CM ---
Addendum entered by Alice Hernandez RN 04/23/24 18:26: [facility] responded on [employer] waiting to see if there is coverage before we can proceed . Addendum entered by Alice Hernandez RN 04/23/24 11:21: [facility] accepted the pt. Pending start of care date. Original Note: [facility] accepted [facility] pt. Booked [facility]. Pending response from HH agency.
[2024-04-23] MEDS: amLODIPine BESYLATE 5 MG TABLET GT (09:27)
[2024-04-23] MEDS: NAPH,KPH MBDB 1 PACKET (1.5 GM) PO (09:27)
[2024-04-23] MEDS: AMIODARONE HCL 200 MG TABLET GT (09:30)
[2024-04-23] MEDS: APIXABAN 2.5 MG TABLET 5 MG GT ×2 (09:30→20:31)
[2024-04-23] MEDS: SENNOSIDES SYRUP 8.8 MG/5 ML UDC GT (09:32)
--- NOTE | 2024-04-23 10:19 | PC.SS ---
Update: Plan is to d/c the patient home with home health. Pending identification of home health to follow PEG feedings.
--- NOTE | 2024-04-23 10:33 | ESPR_ITS ---
Subjective Subjective Interval history: off abx. doing ok. s pending on urine for fosfomycin. no fevers before or after fosfomycin use Exam Vital Signs Temp Pulse Resp BP Pulse Ox O2 Del Method O2 Flow Rate 97.1 F 71 17 128/77 95 Room Air 3 04/23/24 08:00 04/23/24 09:30 04/23/24 08:00 04/23/24 09:30 04/23/24 08:00 04/23/24 08:00 04/20/24 17:45 Narrative Exam somnolent. heavy set lady with her . benign exam. Objective - Internal Medicine Labs 04/23/24 04:50 04/23/24 04:50 Labs: Laboratory Results - last 24 hr 04/21/24 04/23/24 06:29 04:50 WBC 7.6 RBC 4.04 Hgb 11.9 L Hct 35.9 L MCV 89 MCH 29.5 MCHC 33.1 RDW Std Deviation 47.8 H Plt Count 125 L Neut % (Auto) 60 Lymph % (Auto) 29 [place] % (Auto) 8 Eos % (Auto) 2 Baso % (Auto) 0 Neut # (Auto) 4.5 Lymph # (Auto) 2.2 [place] # (Auto) 0.6 Eos # (Auto) 0.2 Baso # (Auto) 0.0 Immature Gran # (Auto) 0.02 H Absolute Nucleated RBC 0.00 Immature Gran % 0 Nucleated RBC % 0 Sodium 141 Potassium 3.9 Chloride 110 H Carbon Dioxide 22.4 Anion Gap 9 BUN 21 Creatinine 1.0 Estim Creat Clear Calc 58.4 L eGFR 60 BUN/Creatinine Ratio 21 H Glucose 124 H Calculated Osmolality 285 Calcium 8.1 L Corrected Calcium 8.5 Phosphorus 2.2 L Magnesium 1.8 Total Bilirubin 0.4 AST 22 ALT 18 Alkaline Phosphatase 67 Total Protein 6.1 Albumin 3.5 Globulin 2.6 Albumin/Globulin Ratio 1.3 Vitamin B12 376 Folate 11.34 Hepatitis C Antibody Non Reactive ABG Interpretation ABG results: 04/15/24 21:39 ABG pH 7.40 ABG pCO2 46 ABG pO2 103 ABG HCO3 28 H ABG O2 Saturation 98 ABG Base Excess 3 Assessment & Plan A&P Narrative ?uti in afebrile person with dementia but abnormal ua and marked dehydration feeding tube is a personal decision. stopped the ancef the other day. no ongoing abx. had fosfomycin for urine already disposition at your discretion will see again prn Time Spent With Patient Time: Total time spent is greater than 50% in coordination of care (as documented) at patient's floor/unit and/or counseling patient:
--- NOTE | 2024-04-23 11:40 | PC.CM ---
received fax from [facility] that pt. is open with [facility].
--- NOTE | 2024-04-23 11:56 | PC.SS ---
Update: CRANE HOOKER confirmed with transfer nurse that [facility] assignment pending. [facility] home health will follow patient.
[2024-04-23] MEDS: INSULIN LISPRO (AdmeLOG) 1 UNIT/0.01 ML UNIT SC (11:57)
--- NOTE | 2024-04-23 11:58 | PC.SS ---
MANAGER INTERN confirmed with patient's spouse, Junior Patterson ; that when patient is medically cleared to return home, [facility] to be utilized for transportation services. Patient's spouse will pay for transport.
--- NOTE | 2024-04-23 12:14 | PD.RESPRO ---
Documentation for date of: 04/23/24 Subjective Subjective Interval history: Ms. Haque is a 73-year-old female with past medical history of dementia, CABG (2018,left breast cancer s/p partial mastectomy), hypertension and Hx of hypercalcemia presents to ED accompanied with with chief complaints of altered mental status. Most of the history was taken from as well as per chart review. Symptoms started about a week ago, per patient had decreased appetite and oral intake, also for the last 3 months patient has been having visual hallucination, was seeing someone who is not present in the room. Last week per they had outpatient labs done, which was normal for the most part, however especially for the last 3 days, patient was becoming more somnolent, was not able to answer to questions, was not able to communicate, and was looking more altered. Subsequently has been decided to bring her to ED for further evaluation. On presentation patient was hemodynamically stable, saturating in room air. Labs revealed leukocytosis with WBC of 15.7, hemoglobin of 16.5, hematocrit 51.2, CMP revealed hypernatremia with sodium of 155, hypokalemia, potassium of 3.0, WILLIAM with BUN of 56, creatinine is 2.8, EGFR of 17, calcium is 13.8, UA is consistent with UTI, U tox is positive for opioids, patient is on [place] at home. CT head was negative for any hemorrhage, mass or midline shift. MRI which was done in 12/30/2023 showed increased white matter signal in the posterior oral right temporal parietal lobe with septal enhancement of the cortex. In ED patient was given 1 bolus of NS along with potassium IV. Nephrology consulted for WILLIAM, hyponatremia, hypercalcemia. 04/22/2024 patient currently seen in telemetry. Daughter at bedside. More alert and awake. Due to acute renal failure, hypercalcemia, hyponatremia and decreased p.o. intake-patient did receive a PEG tube and is tolerating feedings and free water flushes. Denies any chest pain. Still bedbound. Will benefit from going to rehab. Blood sugar 173, blood pressure 105/76, heart rate 81. CBC normal, platelets 125. Sodium 141, potassium 3.6, bicarbonate 18.4, BUN 19, creatinine 1.1, calcium 8.2, LFTs normal 04/23/24 patient currently in telemetry, at bedside. Sleeping comfortably. Patient's renal function has improved remarkably, potassium 3.9, sodium 141, BUN 21, creatinine 1, GFR 60, glucose 124, calcium 8.1, phosphorus 2.2. Still bedbound. Patient will be discharged to home with home health today for physical therapy, patient is on goal tube feeds. Exam Vital Signs Temp Pulse Resp BP Pulse Ox O2 Del Method O2 Flow Rate 97.1 F 71 17 128/77 95 Room Air 3 04/23/24 08:00 04/23/24 09:30 04/23/24 08:00 04/23/24 09:30 04/23/24 08:00 04/23/24 08:00 04/20/24 17:45 Narrative Exam PE: Gen: Well-developed and well-nourished. Obese. HEENT: NCAT, PERRLA, EOMI, MMM, anicteric conjunctivae. CVS: normal S1 and S2. RRR. No M/R/G. Significant scar center chest due to infected surgical site s/p CABG. Resp: CTA B/L. No rhonchi, rales, crackles or wheezing. Poor breath sounds due to body habitus. Abd: soft, non-tender, non-distended. ++ Feeding tube MSK: Good ROM in BUE & BLE. No rash. Trace edema lower extremities. Neuro: follows commands. Awake and alert. Objective Labs 04/24/24 05:04 04/24/24 05:04 Labs: Laboratory Results - last 24 hr 04/21/24 04/23/24 06:29 04:50 WBC 7.6 RBC 4.04 Hgb 11.9 L Hct 35.9 L MCV 89 MCH 29.5 MCHC 33.1 RDW Std Deviation 47.8 H Plt Count 125 L Neut % (Auto) 60 Lymph % (Auto) 29 [place] % (Auto) 8 Eos % (Auto) 2 Baso % (Auto) 0 Neut # (Auto) 4.5 Lymph # (Auto) 2.2 [place] # (Auto) 0.6 Eos # (Auto) 0.2 Baso # (Auto) 0.0 Immature Gran # (Auto) 0.02 H Absolute Nucleated RBC 0.00 Immature Gran % 0 Nucleated RBC % 0 Sodium 141 Potassium 3.9 Chloride 110 H Carbon Dioxide 22.4 Anion Gap 9 BUN 21 Creatinine 1.0 Estim Creat Clear Calc 58.4 L eGFR 60 BUN/Creatinine Ratio 21 H Glucose 124 H Calculated Osmolality 285 Calcium 8.1 L Corrected Calcium 8.5 Phosphorus 2.2 L Magnesium 1.8 Total Bilirubin 0.4 AST 22 ALT 18 Alkaline Phosphatase 67 Total Protein 6.1 Albumin 3.5 Globulin 2.6 Albumin/Globulin Ratio 1.3 Vitamin B12 376 Folate 11.34 Hepatitis C Antibody Non Reactive ABG Interpretation ABG results: 04/15/24 21:39 ABG pH 7.40 ABG pCO2 46 ABG pO2 103 ABG HCO3 28 H ABG O2 Saturation 98 ABG Base Excess 3 Quality Measures Quality Measures VTE prophylaxis Advance care planning discussed with:: patient and spouse Assessment & Plan Assessment Current Active Medications: Generic Name Dose Route Start Last Admin Trade Name Freq PRN Reason Stop Dose Admin Acetaminophen 650 mg 04/17/24 09:35 04/22/24 17:30 Acetaminophen 325 Mg Tablet PO 05/15/24 19:49 650 mg Q6H PRN Administration PAIN 1-3 OR FEVER > 101 Amiodarone HCl 200 mg 04/21/24 09:00 04/23/24 09:30 Amiodarone Hcl 200 Mg Tablet GT 05/21/24 08:59 200 mg QDAY SABINA Administration Amlodipine Besylate 5 mg 04/22/24 09:00 04/23/24 09:27 Amlodipine Besylate 5 Mg Tablet GT 05/22/24 08:59 5 mg QDAY SABINA Administration Apixaban 5 mg 04/21/24 09:00 04/23/24 09:30 Apixaban 2.5 Mg Tablet GT 05/21/24 08:59 5 mg BID SABINA Administration Dextrose 25 ml 04/15/24 19:56 Dextrose 50%-Water Inj 50 Ml Syringe IV 05/15/24 19:55 Q15MIN PRN BG 50-70 responsive npo pt Dextrose 50 ml 04/15/24 19:56 Dextrose 50%-Water Inj 50 Ml Syringe IV 05/15/24 19:55 Q15MIN PRN BG <50 OR BG <70 & pt unresponsive Glucagon 1 mg 04/15/24 19:56 Glucagon Inj 1 Mg Vial IM Q15MIN PRN BG <70, and no IV access Hydralazine HCl 10 mg 04/21/24 09:27 Hydralazine Inj 20 Mg/Ml Vial IV 05/16/24 05:29 Q6H PRN sbp>160 Insulin Human Lispro 0 unit 04/17/24 11:30 04/23/24 11:57 Insulin Lispro (Admelog) 1 Unit/0.01 Ml Unit SC 05/17/24 11:29 1 unit AC SABINA Administration Protocol Ondansetron HCl 4 mg 04/15/24 19:50 04/21/24 15:04 Ondansetron Inj 2 Mg/Ml Inj 2 Ml IV 05/15/24 19:49 4 mg Q6H PRN Administration NAUSEA OR VOMITING Protocol Sennosides 8.8 mg 04/21/24 09:00 04/23/24 09:32 Sennosides Syrup 8.8 Mg/5 Ml Udc GT 05/21/24 08:59 8.8 mg QDAY SABINA Administration Protocol Plan Summary: Ms. Haque is a 73-year-old female with past medical history of dementia, CABG (2018,left breast cancer s/p partial mastectomy), hypertension and Hx of hypercalcemia presents to ED accompanied with with chief complaints of altered mental status. #WILLIAM, resolved Likely prerenal azotemia due to dehydration. BUN and creatinine markedly improved. Continue with free water flushes, 2 feeds. Plan: -Avoid nephrotoxic agents -Renally dose medications -Will continue to monitor -Anticipate discharge today with home health #Hypercalcemia, likely related to immobilization--markedly improved-in fact on the lower side. Did receive denosumab. #Hypernatremia With free water flushes sodium 141. Currently stable. 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 Case discussed with Attending physician Dr. Carlyle Menjivar PGY1 Attending Provider Attestation/Addendum Patient seen and examined with resident physician Dr. Menjivar. Note reviewed, agree with findings and recommendations. at bedside. Patient had PEG tube due to her decreased p.o. intake and recurrent admissions for electrolyte imbalance and WILLIAM. Currently tolerating tube feeds and free water flushes. Will monitor closely. Noted she will be discharged home with home health. 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
--- NOTE | 2024-04-23 13:53 | ESDS_ITS ---
<Statement entered by Pratima Smart MD - 04/29/24 12:42> I reviewed above note and agree with findings and plans. I have also personally examined the patient with medicine team and went over assessment and plan with medical team including audit practice intern and resident physician. Planned Discharge Date 04/23/24 DS: Providers Provider Date of admission: 04/15/24 19:47 Primary care physician: Physician No Primary/Family Admitting Provider: Lauren Hunter MD Attending Provider on Admission: Pratima Smart MD Consults: 04/15/24 23:01 Consult to Nephrology Routine Comment: Consulting Provider: Carmina Tadeo Consult to Oncology Routine Comment: Consulting Provider: Karel Uriostegui 04/16/24 03:10 Referral Registered Dietitian Routine Comment: 04/16/24 03:25 Referral Wound Care Routine Comment: WOUND TO STERNUM, POA 04/16/24 08:08 Referral Speech Therapy Routine Comment: 04/18/24 07:44 Referral Speech Therapy Routine Comment: 04/19/24 10:11 Consult to Infectious Diseases Routine Comment: Consulting Provider: Tobin Thomson 04/20/24 10:12 Consult to Gastroenterology Routine Comment: Possible G Tube Placement Consulting Provider: Jl Diaz 04/20/24 17:57 Referral Registered Dietitian Urgent Comment: Instructions: new PEG tube placement Attending Provider on DC: Benson Montalvo MD Discharging Provider: Benson Montalvo MD DS: Diagnosis Problem List Completed Was Problem List Reviewed/Reconciled?: Yes Hospital Course Hospital Course Hospital course: 73 y/o F with PMHx of CAD s/p CABG complicated with wound infection s/p debridement, history of partial mastectomy due to breast cancer, completed full course of radiation in 2021, history of recurrent UTIs, dementia, history of hy percalcemia of malignancy, presents to ED due to altered mental status. Patient was admitted for acute metabolic encephalopathy most likely secondary due to hypercalcemia, dehydration, UTI, versus worsening baseline dementia. During hospital stay patient was found to be dehydrated evidenced by her electrolyte panel and Acute kidney injury for which Nephrology was consulted. Patient was given 1L normal saline and maintainance hydration for a few days until resolved. Patient was also having decreased po intake at home and likely contributing to her dehydration, for which PEG tube was placed in order for patient to maintain adequate nutritional status. Diet via peg tube was started and adequately tolerated till goal was achieved. Patient also had ESBL UTI for which antibiotic treatment was given and completed course. Her hypercalcemia was managed with calcium lowering agents and IV hydration, patient was instructed to continue to follow up with primary care physician to follow up on her hypercalcemia. Patient also had hx of Deep venous thrombosis and pulmonary embolism and atrial fibrillation for which her home anticoagulant eliquis and antiarrythmic amiodarone was resumed. Patient at this time is medically stable for discharge. Patient was instructed to follow up with her primary care physician within 1 week of discharge. Patient also instructed to continue her tube feedings at a rate of 65 cc/hr, free water flushes of 25cc/hr and continue medication as prescribed. In case of worsening symptoms patient is instructed to return to the ER. Problem list: #Poor PO intake s/p PEG tube placement #Acute metabolic encephalopathy secondary to hypercalcemia and hypernatremia #Hypercalcemia, possibly due to hypercalcemia of malignancy #ESBL UTI #WILLIAM most likely prerenal in the setting of dehydration #Hypernatremia #Hypokalemia #Hypophosphatemia # History of type II DM #History of DVT and PE #Atrial fibrillation #History of CAD s/p CABG #HTN #HLD #Hx of RLS #Hx of dementia #History of breast cancer s/p mastectomy and radiation Case discussed with my senior Dr. Goins PGY-[address] Berry Montalvo MD PGY-1 Time Spent with Patient Time attestation: Total time spent providing and/or coordinating discharge services: Exam Vital Signs Temp Pulse Resp BP Pulse Ox O2 Del Method O2 Flow Rate 96.7 F L 69 17 111/79 96 Room Air 3 04/23/24 12:00 04/23/24 12:00 04/23/24 12:00 04/23/24 12:04/23/24 12:04/23/24 12:04/20/24 17:45 Discharge Plan Plan Patient Disposition: Home w/HOME HEALTH Patient condition on transfer: Stable Care Plan Goals: Please followup with your primary care provider within 5 days of discharge from hospital, continue with Tube feeding at rate of 65 cc/h, free water flushes of 25 cc/hr. Continue medications as prescribed. In case of worsening symptoms please return to the emergency room. Prescriptions/Referrals Prescriptions/Med Rec: New amlodipine 5 mg Tablet 5 mg G-tube QDAY 30 Days Qty: 30 0RF Continued atorvastatin [Lipitor] 40 MG tablet 80 mg PO HS Qty: 0 omeprazole 20 MG capsule,delayed release(DR/EC) 20 mg PO QDAY Qty: 0 anastrozole 1 mg tablet 1 mg PO QDAY Patient Comments: TAKE 1 TABLET BY MOUTH EVERY DAY amiodarone 200 mg tablet 200 mg PO QDAY Patient Comments: TAKE 1 TABLET BY MOUTH EVERY DAY hydrocodone-acetaminophen 10-325 mg tablet 1 tab PO QID PRN (Reason: Pain, Moderate) Hold Instructions: Resume on 03/27/22. Patient Comments: TAKE 1 TABLET BY MOUTH EVERY 6 HOURS NEEDED FOR SEVER BACK AND HIP PAIN pramipexole 0.5 mg tablet 0.5 mg PO HS Patient Comments: TAKE 1 TABLET BY MOUTH AT BEDTIME memantine 10 mg tablet 5 mg PO QDAY Eliquis 5 mg tablet 5 mg PO BID Hold Instructions: Resume on 03/27/22. Patient Comments: TAKE 1 TABLET BY MOUTH TWICE A DAY sennosides [Senna Lax] 8.6 mg Tablet 8.6 mg PO QDAY alendronate 35 mg tablet 20 mg PO WMHS triazolam 0.125 mg Tablet 0.25 mg PO HS PRN (Reason: Insomnia) nifedipine 30 mg Tablet Extended Release 24hr 30 mg PO QDAY gabapentin 600 mg tablet 100 mg PO HS Hold Instructions: Resume on 01/04/24. Follow-up with PCP before restarting medication. Patient Comments: TAKE 1 TABLET BY MOUTH THREE TIMES A DAY fluoxetine 20 mg capsule 20 mg PO HS Patient Comments: TAKE 1 CAPSULE BY MOUTH EVERY DAY Januvia 100 mg tablet 100 mg PO QDAY bisacodyl [Dulcolax (bisacodyl)] 5 mg Tablet,Delayed Release (Dr/Ec) 5 mg PO BID Discontinued Caltrate 600 plus D 600 mg-20 mcg (800 unit) Tablet,Chewable 1 tab PO BID No Action multivitamin Capsule 1 cap PO QDAY Referrals: No Primary/Family,Physician [Primary Care Provider] - Patient/Caregiver Discharge Instructions Other Discharge Diet Instructions: Please follow up with your primary care provider within 5 days of discharge from hospital, Please stop taking calcium supplements at home. Please continue with Tube feeding at rate of 60 cc/h, free water flushes of 30 cc/hr. Continue medications as prescribed. In case of worsening symptoms please return to the emergency room. Tube feeds: Glucerna at 60 ml/hr via PEG tube by pump. free water flushes of 30 ml/hr. Provides: 1728 kcal, 86 g prot, 1159 ml free water, 1440 ml total volume. Education Materials: Understanding PEG Tube Feeding, Dehydration, Acute Kidney Failure Dc Print Language: Polish Stand Alone Forms: Kerry Award Info., Patient Portal Info Letter Discharge Order Discharge Orders: Discharge (Routine); Ordered 04/23/24 Ordered By: Benson Montalvo Quality Discharge Quality Measures VTE prophylaxis
[2024-04-23] MEDS: ACETAMINOPHEN 325 MG TABLET 650 MG PO (14:42)
--- NOTE | 2024-04-23 14:47 | PC.SS ---
UTILITY PORTER informed that [facility] alignment remains pending due to confirmation of coverage for feedings.
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
--- NOTE | 2024-04-23 15:39 | PC.SS ---
LEAD CONSULTANT confirmed with transfer nurse that ICS alignment remains pending.
--- NOTE | 2024-04-23 19:51 | PD.IMPROG ---
Documentation for date of: 04/23/24 Subjective Subjective Interval history: Patient evaluated PEG site checked No drainage at the PEG site Exam Vital Signs Temp Pulse Resp BP Pulse Ox O2 Del Method O2 Flow Rate 97.7 F 69 16 100/65 98 Room Air 3 04/23/24 16:00 04/23/24 16:00 04/23/24 16:00 04/23/24 16:00 04/23/24 16:00 04/23/24 16:00 04/20/24 17:45 Routine Respiratory Exam Comments: Normal to auscultation Routine Abdominal Exam Comments: Soft nontender Objective Labs 04/23/24 04:50 04/23/24 04:50 Labs: Laboratory Results - last 24 hr 04/21/24 04/23/24 06:29 04:50 WBC 7.6 RBC 4.04 Hgb 11.9 L Hct 35.9 L MCV 89 MCH 29.5 MCHC 33.1 RDW Std Deviation 47.8 H Plt Count 125 L Neut % (Auto) 60 Lymph % (Auto) 29 [place] % (Auto) 8 Eos % (Auto) 2 Baso % (Auto) 0 Neut # (Auto) 4.5 Lymph # (Auto) 2.2 [place] # (Auto) 0.6 Eos # (Auto) 0.2 Baso # (Auto) 0.0 Immature Gran # (Auto) 0.02 H Absolute Nucleated RBC 0.00 Immature Gran % 0 Nucleated RBC % 0 Sodium 141 Potassium 3.9 Chloride 110 H Carbon Dioxide 22.4 Anion Gap 9 BUN 21 Creatinine 1.0 Estim Creat Clear Calc 58.4 L eGFR 60 BUN/Creatinine Ratio 21 H Glucose 124 H Calculated Osmolality 285 Calcium 8.1 L Corrected Calcium 8.5 Phosphorus 2.2 L Magnesium 1.8 Total Bilirubin 0.4 AST 22 ALT 18 Alkaline Phosphatase 67 Total Protein 6.1 Albumin 3.5 Globulin 2.6 Albumin/Globulin Ratio 1.3 Vitamin B12 376 Folate 11.34 Hepatitis C Antibody Non Reactive Impressions Impression: # Failure to thrive # Status postplacement of a gastrostomy tube for enteral hyperalimentation Continue enteral feeding ABG Interpretation ABG results: 04/15/24 21:39 ABG pH 7.40 ABG pCO2 46 ABG pO2 103 ABG HCO3 28 H ABG O2 Saturation 98 ABG Base Excess 3 Assessment & Plan A&P Narrative ?uti in afebrile person with dementia but abnormal ua and marked dehydration feeding tube is a personal decision. stopped the ancef the other day. no ongoing abx. had fosfomycin for urine already disposition at your discretion will see again prn Time Spent With Patient Time: Total time spent is greater than 50% in coordination of care (as documented) at patient's floor/unit and/or counseling patient:
[2024-04-24] VITALS (10 sets, daily range): BP systolic 101–149; BP diastolic 59–94; PULSE 64–72; RESP 12–23; TEMP 35.9–36.3; O2SAT 95–97; BMI 41.7
[2024-04-24 06:03] LABS: Basophils % (Auto) 0 % (0-2.5); Eosinophils # (Auto) 0.2 Thou/mm3 (0.0-0.5); Eosinophils % (Auto) 2 % (0-10); Hematocrit 34.7 % (36.0-46.0); Hemoglobin 11.6 g/dL (12.0-16.0); Immature Granulocytes % (Auto) 1 % (0-0); Immature Granulocytes Auto 0.06 Thou/mm3 (0.00-0.00); Lymphocytes # (Auto) 2.2 Thou/mm3 (1.0-4.8); Lymphocytes % (Auto) 32 % (10-50); Mean Corpuscular HGB Conc 33.4 g/dl (31.0-37.0); Mean Corpuscular Hemoglobin 29.6 pg (25.0-35.0); Mean Corpuscular Volume 89 fL (80-100); Monocytes # (Auto) 0.7 Thou/mm3 (0.0-0.8); Monocytes % (Auto) 10 % (0-12); Neutrophils # (Auto) 3.8 Thou/mm3 (1.8-7.7); Neutrophils % (Auto) 55 % (37-80); Nucleated Red Blood Cell % 0 /100 WBC (0); Platelet Count 138 Thou/mm3 (140-440); RDW Standard Deviation 47.6 fL (36.4-46.3); Red Blood Count 3.92 Miln/mm3 (4.00-5.20); White Blood Count 6.9 Thou/mm3 (3.6-11.0)
[2024-04-24 06:32] LABS: Alanine Aminotransferase 17 U/L (10-49); Albumin, Serum 3.6 gm/dL (3.4-4.8); Albumin/Globulin Ratio 1.6 (1.2-2.2); Alkaline Phosphatase 64 U/L (46-116); Anion Gap 12 (7-16); Aspartate Amino Transferase 22 U/L (0-34); BUN/Creatinine Ratio 21 Ratio (12-20); Bilirubin,Total 0.4 mg/dL (0.3-1.2); Blood Urea Nitrogen 19 mg/dL (9-23); Calcium 7.7 mg/dL (8.3-10.6); Carbon Dioxide 20.5 mMol/L (20.0-31.0); Chloride 107 mMol/L (98-107); Creatinine (Component) 0.9 mg/dL (0.6-1.3); Estimated Creatinine Clearance 64.9 mL/min (>60); Globulin 2.3 gm/dL (2.3-3.5); Glucose 116 mg/dL (74-106); Magnesium 1.7 mg/dL (1.6-2.6); Osmolality,Calculated 280 (275-295); Phosphorous 2.1 mg/dL (2.4-5.1); Potassium 3.6 mMol/L (3.4-5.1); Sodium 139 mMol/L (136-145); Total Protein 5.9 gm/dL (5.7-8.2); eGFR > 60 See Note
--- NOTE | 2024-04-24 08:51 | ESPR_ITS ---
Documentation for date of: 04/24/24 Subjective Subjective Interval history: Ms. Haque is a 73-year-old female with past medical history of dementia, CABG (2018,left breast cancer s/p partial mastectomy), hypertension and Hx of hypercalcemia presents to ED accompanied with with chief complaints of altered mental status. Most of the history was taken from as well as per chart review. Symptoms started about a week ago, per patient had decreased appetite and oral intake, also for the last 3 months patient has been having visual hallucination, was seeing someone who is not present in the room. Last week per they had outpatient labs done, which was normal for the most part, however especially for the last 3 days, patient was becoming more somnolent, was not able to answer to questions, was not able to communicate, and was looking more altered. Subsequently has been decided to bring her to ED for further evaluation. On presentation patient was hemodynamically stable, saturating in room air. Labs revealed leukocytosis with WBC of 15.7, hemoglobin of 16.5, hematocrit 51.2, CMP revealed hypernatremia with sodium of 155, hypokalemia, potassium of 3.0, WILLIAM with BUN of 56, creatinine is 2.8, EGFR of 17, calcium is 13.8, UA is consistent with UTI, U tox is positive for opioids, patient is on [place] at home. CT head was negative for any hemorrhage, mass or midline shift. MRI which was done in 12/30/2023 showed increased white matter signal in the posterior oral right temporal parietal lobe with septal enhancement of the cortex. In ED patient was given 1 bolus of NS along with potassium IV. Nephrology consulted for WILLIAM, hyponatremia, hypercalcemia. 04/22/2024 patient currently seen in telemetry. Daughter at bedside. More alert and awake. Due to acute renal failure, hypercalcemia, hyponatremia and decreased p.o. intake-patient did receive a PEG tube and is tolerating feedings and free water flushes. Denies any chest pain. Still bedbound. Will benefit from going to rehab. Blood sugar 173, blood pressure 105/76, heart rate 81. CBC normal, platelets 125. Sodium 141, potassium 3.6, bicarbonate 18.4, BUN 19, creatinine 1.1, calcium 8.2, LFTs normal 04/23/24 patient currently in telemetry, at bedside. Sleeping comfortably. Patient's renal function has improved remarkably, potassium 3.9, sodium 141, BUN 21, creatinine 1, GFR 60, glucose 124, calcium 8.1, phosphorus 2.2. Still bedbound. Patient will be discharged to home with home health today for physical therapy, patient is on goal tube feeds. 04/24/24 patient currently on telemetry, at bedside. Patient is alert oriented x 1 today, patient's renal function is within normal limits BUN 19, creatinine 0.9, GFR more than 60 and sodium 139, potassium 3.6, chloride 107 glucose 116. Corrected calcium 8.0 and phosphorus 2.1, phosphorus replaced. Patient's renal function is back to baseline. Will sign off patient's care from nephrology standpoint today. Exam Vital Signs Temp Pulse Resp BP Pulse Ox O2 Del Method O2 Flow Rate 97.0 F 69 12 105/75 97 Room Air 3 04/24/24 04:00 04/24/24 07:28 04/24/24 04:00 04/24/24 04:00 04/24/24 04:00 04/24/24 04:00 04/20/24 17:45 Narrative Exam PE: Gen: Well-developed and well-nourished. Obese. HEENT: NCAT, PERRLA, EOMI, MMM, anicteric conjunctivae. CVS: normal S1 and S2. RRR. No M/R/G. Significant scar center chest due to infected surgical site s/p CABG. Resp: CTA B/L. No rhonchi, rales, crackles or wheezing. Poor breath sounds due to body habitus. Abd: soft, non-tender, non-distended. ++ Feeding tube MSK: Functional quadriplegia, gross movements noted in all 4 limbs, no rash. Trace edema lower extremities. Neuro: follows commands. Awake and alert. Objective Labs 04/25/24 04:59 04/25/24 04:59 Labs: Laboratory Results - last 24 hr 04/24/24 05:04 WBC 6.9 RBC 3.92 L Hgb 11.6 L Hct 34.7 L MCV 89 MCH 29.6 MCHC 33.4 RDW Std Deviation 47.6 H Plt Count 138 L Neut % (Auto) 55 Lymph % (Auto) 32 [place] % (Auto) 10 Eos % (Auto) 2 Baso % (Auto) 0 Neut # (Auto) 3.8 Lymph # (Auto) 2.2 [place] # (Auto) 0.7 Eos # (Auto) 0.2 Baso # (Auto) 0.0 Immature Gran # (Auto) 0.06 H Absolute Nucleated RBC 0.00 Immature Gran % 1 H Nucleated RBC % 0 Sodium 139 Potassium 3.6 Chloride 107 Carbon Dioxide 20.5 Anion Gap 12 BUN 19 Creatinine 0.9 Estim Creat Clear Calc 64.9 eGFR > 60 BUN/Creatinine Ratio 21 H Glucose 116 H Calculated Osmolality 280 Calcium 7.7 L Corrected Calcium 8.0 L Phosphorus 2.1 L Magnesium 1.7 Total Bilirubin 0.4 AST 22 ALT 17 Alkaline Phosphatase 64 Total Protein 5.9 Albumin 3.6 Globulin 2.3 Albumin/Globulin Ratio 1.6 ABG Interpretation ABG results: 04/15/24 21:39 ABG pH 7.40 ABG pCO2 46 ABG pO2 103 ABG HCO3 28 H ABG O2 Saturation 98 ABG Base Excess 3 Quality Measures Quality Measures VTE prophylaxis Advance care planning discussed with:: patient and spouse Assessment & Plan Assessment Current Active Medications: Generic Name Dose Route Start Last Admin Trade Name Freq PRN Reason Stop Dose Admin Acetaminophen 650 mg 04/17/24 09:35 04/23/24 14:42 Acetaminophen 325 Mg Tablet PO 05/15/24 19:49 650 mg Q6H PRN Administration PAIN 1-3 OR FEVER > 101 Amiodarone HCl 200 mg 04/21/24 09:00 04/23/24 09:30 Amiodarone Hcl 200 Mg Tablet GT 05/21/24 08:59 200 mg QDAY SABINA Administration Amlodipine Besylate 5 mg 04/22/24 09:00 04/23/24 09:27 Amlodipine Besylate 5 Mg Tablet GT 05/22/24 08:59 5 mg QDAY SABINA Administration Apixaban 5 mg 04/21/24 09:00 04/23/24 20:31 Apixaban 2.5 Mg Tablet GT 05/21/24 08:59 5 mg BID SAIBNA Administration Dextrose 25 ml 04/15/24 19:56 Dextrose 50%-Water Inj 50 Ml Syringe IV 05/15/24 19:55 Q15MIN PRN BG 50-70 responsive npo pt Dextrose 50 ml 04/15/24 19:56 Dextrose 50%-Water Inj 50 Ml Syringe IV 05/15/24 19:55 Q15MIN PRN BG <50 OR BG <70 & pt unresponsive Glucagon 1 mg 04/15/24 19:56 Glucagon Inj 1 Mg Vial IM Q15MIN PRN BG <70, and no IV access Hydralazine HCl 10 mg 04/21/24 09:27 Hydralazine Inj 20 Mg/Ml Vial IV 05/16/24 05:29 Q6H PRN sbp>160 Insulin Human Lispro 0 unit 04/17/24 11:30 04/24/24 07:35 Insulin Lispro (Admelog) 1 Unit/0.01 Ml Unit SC 05/17/24 11:29 Not Given AC SABINA Protocol Ondansetron HCl 4 mg 04/15/24 19:50 04/21/24 15:04 Ondansetron Inj 2 Mg/Ml Inj 2 Ml IV 05/15/24 19:49 4 mg Q6H PRN Administration NAUSEA OR VOMITING Protocol Sennosides 8.8 mg 04/21/24 09:00 04/23/24 09:32 Sennosides Syrup 8.8 Mg/5 Ml Udc GT 05/21/24 08:59 8.8 mg QDAY SABINA Administration Protocol Plan Summary: Ms. Haque is a 73-year-old female with past medical history of dementia, CABG (2018,left breast cancer s/p partial mastectomy), hypertension and Hx of hypercalcemia presents to ED accompanied with with chief complaints of altered mental status. #WILLIAM, resolved Likely prerenal azotemia due to dehydration. BUN and creatinine markedly improved. Continue with free water flushes, tube feeds. Plan: -Avoid nephrotoxic agents -Renally dose medications -Will continue to monitor -Anticipate discharge home with home health ~~Nephrology will sign off on the case today~~ #Hypercalcemia, likely related to immobilization--markedly improved-in fact on the lower side. Did receive denosumab. #Hypernatremia, resolved With free water flushes sodium 141. Currently stable. -Monitor daily labs -Hypercalcemia has resolved, corrected calcium 8.0 today #Status post PEG tube placement in setting of poor p.o. intake #Hx of breast cancer s/p mastectomy #DM type II #hx of DVT and PE-on Eliquis #s/p CABG #HTN #HLD #Hx of dementia #Hx of RLS Management as per primary team. Case discussed with Attending physician Dr. Carlyle Menjivar PGY1 Attending Provider Attestation/Addendum Patient seen and examined with resident physician Dr. Menjivar. Note reviewed, agree with findings and recommendations. at bedside. Patient had PEG tube due to her decreased p.o. intake and recurrent admissions for electrolyte imbalance and WILLIAM. Currently tolerating tube feeds and free water flushes. Will monitor closely. Noted she will be discharged home with home health. 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 Renal will sign off. Thank you for the consult. Creatinine, electrolytes normal
[2024-04-24] MEDS: amLODIPine BESYLATE 5 MG TABLET GT (09:02)
[2024-04-24] MEDS: APIXABAN 2.5 MG TABLET 5 MG GT ×2 (09:02→21:28)
[2024-04-24] MEDS: NAPH,KPH MBDB 1 PACKET (1.5 GM) PO (09:02)
[2024-04-24] MEDS: AMIODARONE HCL 200 MG TABLET GT (09:03)
--- NOTE | 2024-04-24 09:35 | PC.CM ---
I sent a message to [facility] to see if we can discharge patient. [facility] accepted patient.
--- NOTE | 2024-04-24 11:13 | PC.SS ---
SS followed up with transfer nurseAntonina who explained insurance authorization is pending for formula (tube feedings) from [facility].
--- NOTE | 2024-04-24 15:31 | ESPR_ITS ---
<Statement entered by Pratima Smart MD - 04/29/24 12:43> I reviewed above note and agree with findings and plans. I have also personally examined the patient with medicine team and went over assessment and plan with medical team including business analyst intern and resident physician. Documentation for date of: 04/24/24 Subjective Subjective Interval history: Patient seen today at the bedside with at bedside. States no active complaints at this time. No overnight events. Vital signs stable at this time. Labs unremarkable at this time. Patient is s/p PEG tube placement currently tolerating feeds and is at goal. Patient was discharged but is still waiting approval for tube feed equipment and insurance approval. Exam Vital Signs Temp Pulse Resp BP Pulse Ox O2 Del Method O2 Flow Rate 97.3 F 68 16 115/73 96 Room Air 3 04/24/24 12:00 04/24/24 12:00 04/24/24 12:00 04/24/24 12:00 04/24/24 12:00 04/24/24 12:00 04/24/24 12:00 Narrative Exam Physical Exam GENERAL: NAD, NC/AT, responsive/cooperative HEENT: Moist mucosa. Eyes open, symmetrical, & clear CARDIO: Heart RRR, scar from CABG surgery and debridement PULM: No noted coughing/dyspnea. Lungs CTA B/L GI: Abdomen soft, nondistended, no pain on palpation. BSx4 URO/FUEL INJECTION SERVICER:: No further abnormalities noted SKIN/MSK/EXT: No wounds/rashes/edema/amputations, no pain on palpation. Pedal pulses present B/L NEURO: limited, patient not answering questions, some nodding Objective Labs 04/25/24 04:59 04/25/24 04:59 Labs: Laboratory Results - last 24 hr 04/24/24 05:04 WBC 6.9 RBC 3.92 L Hgb 11.6 L Hct 34.7 L MCV 89 MCH 29.6 MCHC 33.4 RDW Std Deviation 47.6 H Plt Count 138 L Neut % (Auto) 55 Lymph % (Auto) 32 Gallia % (Auto) 10 Eos % (Auto) 2 Baso % (Auto) 0 Neut # (Auto) 3.8 Lymph # (Auto) 2.2 Gallia # (Auto) 0.7 Eos # (Auto) 0.2 Baso # (Auto) 0.0 Immature Gran # (Auto) 0.06 H Absolute Nucleated RBC 0.00 Immature Gran % 1 H Nucleated RBC % 0 Sodium 139 Potassium 3.6 Chloride 107 Carbon Dioxide 20.5 Anion Gap 12 BUN 19 Creatinine 0.9 Estim Creat Clear Calc 64.9 eGFR > 60 BUN/Creatinine Ratio 21 H Glucose 116 H Calculated Osmolality 280 Calcium 7.7 L Corrected Calcium 8.0 L Phosphorus 2.1 L Magnesium 1.7 Total Bilirubin 0.4 AST 22 ALT 17 Alkaline Phosphatase 64 Total Protein 5.9 Albumin 3.6 Globulin 2.3 Albumin/Globulin Ratio 1.6 ABG Interpretation ABG results: 04/15/24 21:39 ABG pH 7.40 ABG pCO2 46 ABG pO2 103 ABG HCO3 28 H ABG O2 Saturation 98 ABG Base Excess 3 Quality Measures Quality Measures VTE prophylaxis Advance care planning discussed with:: patient and spouse Assessment & Plan Assessment Current Active Medications: Generic Name Dose Route Start Last Admin Trade Name Freq PRN Reason Stop Dose Admin Acetaminophen 650 mg 04/17/24 09:35 04/23/24 14:42 Acetaminophen 325 Mg Tablet PO 05/15/24 19:49 650 mg Q6H PRN Administration PAIN 1-3 OR FEVER > 101 Amiodarone HCl 200 mg 04/21/24 09:00 04/24/24 09:03 Amiodarone Hcl 200 Mg Tablet GT 05/21/24 08:59 200 mg QDAY SABINA Administration Amlodipine Besylate 5 mg 04/22/24 09:00 04/24/24 09:02 Amlodipine Besylate 5 Mg Tablet GT 05/22/24 08:59 5 mg QDAY SABINA Administration Apixaban 5 mg 04/21/24 09:00 04/24/24 09:02 Apixaban 2.5 Mg Tablet GT 05/21/24 08:59 5 mg BID SABINA Administration Dextrose 25 ml 04/15/24 19:56 Dextrose 50%-Water Inj 50 Ml Syringe IV 05/15/24 19:55 Q15MIN PRN BG 50-70 responsive npo pt Dextrose 50 ml 04/15/24 19:56 Dextrose 50%-Water Inj 50 Ml Syringe IV 05/15/24 19:55 Q15MIN PRN BG <50 OR BG <70 & pt unresponsive Glucagon 1 mg 04/15/24 19:56 Glucagon Inj 1 Mg Vial IM Q15MIN PRN BG <70, and no IV access Hydralazine HCl 10 mg 04/21/24 09:27 Hydralazine Inj 20 Mg/Ml Vial IV 05/16/24 05:29 Q6H PRN sbp>160 Insulin Human Lispro 0 unit 04/17/24 11:30 04/24/24 12:35 Insulin Lispro (Admelog) 1 Unit/0.01 Ml Unit SC 05/17/24 11:29 Not Given AC [facility] Protocol Ondansetron HCl 4 mg 04/15/24 19:50 04/21/24 15:04 Ondansetron Inj 2 Mg/Ml Inj 2 Ml IV 05/15/24 19:49 4 mg Q6H PRN Administration NAUSEA OR VOMITING Protocol Sennosides 8.8 mg 04/21/24 09:00 04/24/24 09:04 Sennosides Syrup 8.8 Mg/5 Ml Udc GT 05/21/24 08:59 Not Given QDAY [facility] Protocol Plan 73 y/o F with PMhx of CABG surgery complicated with wound infection s/p debridement, hx of breast ca s/p radiation and partial mastectomy, hx of rec UTIs, dementia and hypercalcemia of malignancy. Admitted due to Acute metabolic encephalopathy secondary to hypercalcemia, dehydration, UTI vs worsening dementia. #Poor PO intake s/p PEG tube placement patient with mentation changes at home per , and has had trouble to finish meals. During Hospital stay patient has not been able to consume most of her meals. Patient is s/p PEG tube, receiving nutrition, meds and hydration via PEG as well as supplements through PO route Tube feeds at goal, pending insurance approval for tube feed equipment - Continue tube feeds 65cc/hr and free H20 flushes at 25cc/hr at time of discharge - GI on case appreciate reccs - On Aspiration precautions #Acute metabolic encephalopathy secondary to hypercalcemia and hypernatremia, resolving #Hypercalcemia, possibly due to hypercalcemia of malignancy #ESBL UTI #WILLIAM most likely prerenal in the setting of dehydration Patient with fluctuations in mental status, patient has hx of hypercalcemia likely due to malignancy states poor oral intake at home for >1 week On admission patient had Ca of 13.8, sodium 155, chloride is 118, hemoglobin is 16.5, hematocrit 51.2, WILLIAM with creatinine of 2.8, BUN 15 6, all this labs consistent with severe dehydration, hemoconcentration. Head CT was negative for hemorrahge, mass or midline shift received 1L of NS and had D5W at 100cc/hr , calcitoninx1 and denosumab, parathyroid was WNL, post calcitonin and denosumab was elevated, at this time there is low suspicion for primary hyperparathyroidism UTI was treated with Abx therapy and ID is on the case. Patient is s/p PEG receiving nutrition and medications through tube. 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 Anticipate discharge in a.m. to home with home health, once patient is at goal rate of tube feeds and tolerating goal rate -Completed antibiotic therapy, per ID recommendations -Corrected Calcium within normal limits -Outpatient follow-up for hypercalcemia recommended -Advance diet to goal, once at goal patient can be discharged -Nephrology consulted, appreciate recommendations #Hypernatremia-resolved #Hypokalemia-resolved #Hypophosphatemia Admitting potassium-3.0. Today, potassium is 3.6 Admitting sodium-155 with osmolality of 326. Na today, 141 -Continue to monitor CMP in a.m. -Replete electrolytes as indicated # History of type II DM Patient was on home Ozempic A1c 6.0 - SSI -hypoglycemia protocol #History of DVT and PE #Atrial fibrillation Patient is on eliquis 5mg BID Wells score for PE 4.0 moderate risk -Resumed home dose Eliquis via G-tube -Patient started on amiodarone via G-tube for A-fib # History of CAD s/p CABG #HTN #HLD #Hx of RLS #Hx of dementia -Patient is on memantine, atorvastatin and pramipexole at home -Patient is on amiodarone for A-fib -On amlodipine 5 mg starting tomorrow via G-tube -Avoiding TRELL inhibitor/ARB because of patient's history of frequent WILLIAM's #History of breast cancer s/p mastectomy and radiation MRI which was done in 12/30/2023 showed increased white matter signal in the posterior oral right temporal parietal lobe with septal enhancement of the cortex. Were unsuccessful coordinating with Dr. 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 -Follow-up outpatient with oncology -Oncology consulted, appreciate recommendations Case discussed with my senior Dr. Goins PGY-[address] Berry Montalvo MD PGY-1 Senior resident attestation: I discussed with and supervised the business analyst intern physician who took care of this patient. I personally saw and examined the patient and discussed the assessment and plan with the entire medicine team, including my attending Dr. Smart , I agree with the assessment and plan as documented above. MD Buster PGY2
--- NOTE | 2024-04-24 20:19 | PD.IMPROG ---
Documentation for date of: 04/24/24 Subjective Subjective Interval history: PEG site checked No drainage at the PEG site Tolerating enteral feeding Exam Vital Signs Temp Pulse Resp BP Pulse Ox O2 Del Method O2 Flow Rate 97.3 F 65 23 H 122/59 L 97 Room Air 3 04/24/24 16:00 04/24/24 16:00 04/24/24 16:00 04/24/24 16:00 04/24/24 16:00 04/24/24 16:00 04/24/24 12:00 Objective Labs 04/24/24 05:04 04/24/24 05:04 Labs: Laboratory Results - last 24 hr 04/24/24 05:04 WBC 6.9 RBC 3.92 L Hgb 11.6 L Hct 34.7 L MCV 89 MCH 29.6 MCHC 33.4 RDW Std Deviation 47.6 H Plt Count 138 L Neut % (Auto) 55 Lymph % (Auto) 32 Stephenson % (Auto) 10 Eos % (Auto) 2 Baso % (Auto) 0 Neut # (Auto) 3.8 Lymph # (Auto) 2.2 Stephenson # (Auto) 0.7 Eos # (Auto) 0.2 Baso # (Auto) 0.0 Immature Gran # (Auto) 0.06 H Absolute Nucleated RBC 0.00 Immature Gran % 1 H Nucleated RBC % 0 Sodium 139 Potassium 3.6 Chloride 107 Carbon Dioxide 20.5 Anion Gap 12 BUN 19 Creatinine 0.9 Estim Creat Clear Calc 64.9 eGFR > 60 BUN/Creatinine Ratio 21 H Glucose 116 H Calculated Osmolality 280 Calcium 7.7 L Corrected Calcium 8.0 L Phosphorus 2.1 L Magnesium 1.7 Total Bilirubin 0.4 AST 22 ALT 17 Alkaline Phosphatase 64 Total Protein 5.9 Albumin 3.6 Globulin 2.3 Albumin/Globulin Ratio 1.6 Impressions Impression: # Failure to thrive # Dysphagia # Placement of a PEG tube for enteral hyperalimentation which patient is tolerating well ABG Interpretation ABG results: 04/15/24 21:39 ABG pH 7.40 ABG pCO2 46 ABG pO2 103 ABG HCO3 28 H ABG O2 Saturation 98 ABG Base Excess 3 Assessment & Plan A&P Narrative ?uti in afebrile person with dementia but abnormal ua and marked dehydration feeding tube is a personal decision. stopped the ancef the other day. no ongoing abx. had fosfomycin for urine already disposition at your discretion will see again prn Time Spent With Patient Time: Total time spent is greater than 50% in coordination of care (as documented) at patient's floor/unit and/or counseling patient:
[2024-04-25] VITALS (8 sets, daily range): BP systolic 91–138; BP diastolic 66–96; PULSE 60–77; RESP 14–18; TEMP 36.1–36.3; O2SAT 95–98
[2024-04-25 05:52] LABS: Basophils % (Auto) 0 % (0-2.5); Eosinophils # (Auto) 0.1 Thou/mm3 (0.0-0.5); Eosinophils % (Auto) 2 % (0-10); Hematocrit 35.4 % (36.0-46.0); Hemoglobin 11.8 g/dL (12.0-16.0); Immature Granulocytes % (Auto) 0 % (0-0); Immature Granulocytes Auto 0.02 Thou/mm3 (0.00-0.00); Lymphocytes % (Auto) 31 % (10-50); Mean Corpuscular HGB Conc 33.3 g/dl (31.0-37.0); Mean Corpuscular Hemoglobin 29.4 pg (25.0-35.0); Mean Corpuscular Volume 88 fL (80-100); Monocytes # (Auto) 0.6 Thou/mm3 (0.0-0.8); Monocytes % (Auto) 10 % (0-12); Neutrophils # (Auto) 3.6 Thou/mm3 (1.8-7.7); Neutrophils % (Auto) 57 % (37-80); Nucleated Red Blood Cell % 0 /100 WBC (0); Platelet Count 141 Thou/mm3 (140-440); Red Blood Count 4.02 Miln/mm3 (4.00-5.20); White Blood Count 6.3 Thou/mm3 (3.6-11.0)
[2024-04-25 06:35] LABS: Alanine Aminotransferase 22 U/L (10-49); Albumin, Serum 3.7 gm/dL (3.4-4.8); Albumin/Globulin Ratio 1.6 (1.2-2.2); Alkaline Phosphatase 66 U/L (46-116); Anion Gap 8 (7-16); Aspartate Amino Transferase 30 U/L (0-34); BUN/Creatinine Ratio 23 Ratio (12-20); Bilirubin,Total 0.4 mg/dL (0.3-1.2); Blood Urea Nitrogen 18 mg/dL (9-23); Calcium 8.2 mg/dL (8.3-10.6); Calcium (Corrected) 8.4 mg/dL (8.5-10.1); Carbon Dioxide 22.6 mMol/L (20.0-31.0); Chloride 107 mMol/L (98-107); Creatinine (Component) 0.8 mg/dL (0.6-1.3); Globulin 2.3 gm/dL (2.3-3.5); Glucose 120 mg/dL (74-106); Magnesium 1.7 mg/dL (1.6-2.6); Osmolality,Calculated 278 (275-295); Phosphorous 2.2 mg/dL (2.4-5.1); Potassium 3.9 mMol/L (3.4-5.1); Sodium 138 mMol/L (136-145); eGFR > 60 See Note
[2024-04-25] MEDS: INSULIN LISPRO (AdmeLOG) 1 UNIT/0.01 ML UNIT SC ×2 (07:45→11:48)
--- NOTE | 2024-04-25 09:09 | PC.SS ---
Follow up note: Pt will return home with [facility]. Per transfer nurse yesterday insurance authorization for tube feeding formula is pending. Pt will require gurney transportation at d/c.
[2024-04-25] MEDS: SENNOSIDES SYRUP 8.8 MG/5 ML UDC GT (10:05)
[2024-04-25] MEDS: APIXABAN 2.5 MG TABLET 5 MG GT (10:05)
[2024-04-25] MEDS: AMIODARONE HCL 200 MG TABLET GT (10:06)
--- NOTE | 2024-04-25 11:45 | PC.CM ---
Addendum entered by Alice Hernandez RN 04/25/24 16:51: dc summary and dc orders sent to [facility] and [facility]. HH referral is complete. Addendum entered by Alice Hernandez RN 04/25/24 15:00: spoke to Tony medical manager and he stated he already gave recs and bedside nurse is giving education to pt on how to give bolus tube feedings. Addendum entered by Alice Hernandez RN 04/25/24 14:57: I called and informed Dr. Wheatley. Plan is medical manager to give recs for bolus feeding and educate the family member on how to give bolus feedings until [facility] HH see the pt on Tuesday04/27/24. Addendum entered by Alice Hernandez RN 04/25/24 14:53: Monserrat from [facility] confirmed that the delivery will be made today and she had already coordinated that with the family. I called [facility] and spoke to Vikki for start of care date. Vikki stated start of care date will be Friday 04/27. They don't have have anything sooner now. Addendum entered by Alice Hernandez RN 04/25/24 11:50: Called and informed Dr. Wheatley and KEYUR Douglas that pt can be discharged today. Original Note: I checked with [facility] if they got the auth for tube feeding. Monserrat responded on [employer] that insurance has approved feedings and delivery can be made today.
--- NOTE | 2024-04-25 12:03 | PC.SS ---
Addendum entered by Stella Mendez 04/25/24 12:39: [facility] and [facility] between 2:45-3pm. is aware. Bedside nurseCeleste is aware. Original Note: SS received call from transfer nurseKonstantin who explained HH Services has been arranged and tube feedings will be delivered to patient's home today. SS has called Carol from [facility] to arrange [facility] transport home for 2pm. SS provided Carol with 's phone number to pay for transport. Bedside nurseCeleste is aware. Dr. Goins is aware.
--- NOTE | 2024-04-25 12:12 | ESDS_ITS ---
Planned Discharge Date 04/25/24 DS: Providers Provider Date of admission: 04/15/24 19:47 Primary care physician: Physician No Primary/Family Admitting Provider: Lauren Hunter MD Attending Provider on Admission: Delmer Melissa DO Consults: 04/15/24 23:01 Consult to Nephrology Routine Comment: Consulting Provider: Carmina Tadeo Consult to Oncology Routine Comment: Consulting Provider: Karel Uriostegui 04/16/24 03:10 Referral Registered Dietitian Routine Comment: 04/16/24 03:25 Referral Wound Care Routine Comment: WOUND TO STERNUM, POA 04/16/24 08:08 Referral Speech Therapy Routine Comment: 04/18/24 07:44 Referral Speech Therapy Routine Comment: 04/19/24 10:11 Consult to Infectious Diseases Routine Comment: Consulting Provider: Tobin Thomson 04/20/24 10:12 Consult to Gastroenterology Routine Comment: Possible G Tube Placement Consulting Provider: Jl Diaz 04/20/24 17:57 Referral Registered Dietitian Urgent Comment: Instructions: new PEG tube placement Attending Provider on DC: Dr Shin MD Discharging Provider: Benson Montalvo MD DS: Diagnosis Problem List Completed Was Problem List Reviewed/Reconciled?: Yes Hospital Course Hospital Course Hospital course: 73 y/o F with PMHx of CAD s/p CABG complicated with wound infection s/p debridement, history of partial mastectomy due to breast cancer, completed full course of radiation in 2021, history of recurrent UTIs, dementia, history of hypercalcemia of malignancy, presents to ED due to altered mental status. Patient was admitted for acute metabolic encephalopathy most likely secondary due to hypercalcemia, dehydration, UTI, versus worsening baseline dementia. During hospital stay patient was found to be dehydrated evidenced by her electrolyte panel and Acute kidney injury for which Nephrology was consulted. Patient was given 1L normal saline and maintainance hydration for a few days until resolved. Patient was also having decreased po intake at home and likely contributing to her dehydration, for which PEG tube was placed in order for patient to maintain adequate nutritional status. Diet via peg tube was started and adequately tolerated till goal was achieved. Patient also had ESBL UTI for which antibiotic treatment was given and completed course. Her hypercalcemia was managed with calcium lowering agents and IV hydration, patient was instructed to continue to follow up with primary care physician to follow up on her hypercalcemia. Patient also had hx of Deep venous thrombosis and pulmonary embolism and atrial fibrillation for which her home anticoagulant eliquis and antiarrythmic amiodarone was resumed. Patient at this time is medically stable for discharge. Patient was instructed to follow up with her primary care physician within 1 week of discharge. Patient also instructed to continue her tube feedings at a rate of 65 cc/hr, free water flushes of 25cc/hr and continue medication as prescribed. In case of worsening symptoms patient is instructed to return to the ED. Problem list: #Poor PO intake s/p PEG tube placement #Acute metabolic encephalopathy secondary to hypercalcemia and hypernatremia #Hypercalcemia, possibly due to hypercalcemia of malignancy #ESBL UTI- resolved #WILLIAM most likely prerenal in the setting of dehydration- resolved #Hypernatremia #Hypokalemia #Hypophosphatemia # History of type II DM #History of DVT and PE #Atrial fibrillation #History of CAD s/p CABG #HTN #HLD #Hx of RLS #Hx of dementia #History of breast cancer s/p mastectomy and radiation Case discussed with my senior Dr. Goins PGY-[address] Shin Montalvo MD PGY-1 Senior resident attestation: I discussed with and supervised the internet assessor physician who took care of this patient. I personally saw and examined the patient and discussed the assessment and plan with the entire medicine team, including my attending Dr. Melissa, I agree with the assessment and plan as documented above. MD Buster PGY2 Status at Discharge Functional status at discharge: bed bound Overall status at discharge: patient is back to baseline Time Spent with Patient Time attestation: Total time spent providing and/or coordinating discharge services: Time spent: Greater than 30 minutes Exam Vital Signs Temp Pulse Resp BP Pulse Ox O2 Del Method O2 Flow Rate 97.0 F 62 16 91/68 95 Room Air 3 04/25/24 12:00 04/25/24 12:00 04/25/24 12:00 04/25/24 12:00 04/25/24 12:00 04/25/24 12:00 04/24/24 12:00 Narrative Exam Physical Exam GENERAL: NAD, obese, responsive/cooperative. AAOx2, but at baseline HEENT: Moist mucosa. Eyes open, symmetrical, & clear CARDIO: No chest pain on palpation. Heart RRR, no obvious murmurs PULM: No noted coughing/dyspnea. Lungs CTA B/L, no R/W/R GI: Abdomen soft, nondistended, no pain on palpation. BSx4 URO/CERAMICS ENGINEER:: No further abnormalities noted. SKIN/MSK/EXT: No wounds/rashes/edema/amputations, no pain on palpation. Pedal pulses present B/L NEURO: AAOx2, not time, but patient is at baseline, per Discharge Plan Plan Patient Disposition: Home w/HOME HEALTH Patient condition on transfer: Stable Care Plan Goals: Please followup with your primary care provider within 5 days of discharge from hospital, continue with Tube feeding at rate of 65 cc/h, free water flushes of 25 cc/hr. Continue medications as prescribed. In case of worsening symptoms please return to the emergency room. Prescriptions/Referrals Prescriptions/Med Rec: New amlodipine 5 mg Tablet 5 mg G-tube QDAY 30 Days Qty: 30 0RF Continued atorvastatin [Lipitor] 40 MG tablet 80 mg PO HS Qty: 0 omeprazole 20 MG capsule,delayed release(DR/EC) 20 mg PO QDAY Qty: 0 anastrozole 1 mg tablet 1 mg PO QDAY Patient Comments: TAKE 1 TABLET BY MOUTH EVERY DAY amiodarone 200 mg tablet 200 mg PO QDAY Patient Comments: TAKE 1 TABLET BY MOUTH EVERY DAY hydrocodone-acetaminophen 10-325 mg tablet 1 tab PO QID PRN (Reason: Pain, Moderate) Hold Instructions: Resume on 03/27/22. Patient Comments: TAKE 1 TABLET BY MOUTH EVERY 6 HOURS NEEDED FOR SEVER BACK AND HIP PAIN pramipexole 0.5 mg tablet 0.5 mg PO HS Patient Comments: TAKE 1 TABLET BY MOUTH AT BEDTIME memantine 10 mg tablet 5 mg PO QDAY Eliquis 5 mg tablet 5 mg PO BID Hold Instructions: Resume on 03/27/22. Patient Comments: TAKE 1 TABLET BY MOUTH TWICE A DAY sennosides [Senna Lax] 8.6 mg Tablet 8.6 mg PO QDAY alendronate 35 mg tablet 20 mg PO WMHS triazolam 0.125 mg Tablet 0.25 mg PO HS PRN (Reason: Insomnia) nifedipine 30 mg Tablet Extended Release 24hr 30 mg PO QDAY gabapentin 600 mg tablet 100 mg PO HS Hold Instructions: Resume on 01/04/24. Follow-up with PCP before restarting medication. Patient Comments: TAKE 1 TABLET BY MOUTH THREE TIMES A DAY fluoxetine 20 mg capsule 20 mg PO HS Patient Comments: TAKE 1 CAPSULE BY MOUTH EVERY DAY Januvia 100 mg tablet 100 mg PO QDAY bisacodyl [Dulcolax (bisacodyl)] 5 mg Tablet,Delayed Release (Dr/Ec) 5 mg PO BID Discontinued Caltrate 600 plus D 600 mg-20 mcg (800 unit) Tablet,Chewable 1 tab PO BID No Action multivitamin Capsule 1 cap PO QDAY Referrals: No Primary/Family,Physician [Primary Care Provider] - Patient/Caregiver Discharge Instructions Other Discharge Diet Instructions: Please follow up with your primary care provider within 5 days of discharge from hospital, Please stop taking calcium supplements at home. Please continue with Tube feeding at rate of 60 cc/h, free water flushes of 30 cc/hr. Continue medications as prescribed. In case of worsening symptoms please return to the emergency room. Tube feeds: Glucerna at 60 ml/hr via PEG tube by pump. free water flushes of 30 ml/hr. Provides: 1728 kcal, 86 g prot, 1159 ml free water, 1440 ml total volume. While waiting for Home Health, consider: Glucerna 1.2 via PEG tube by bolus syringe. 8 oz (240ml) six times per day. Water flushes of 100 ml every 4 hours. Provides: 1728 kcal, 86 g prot, 1159 ml free water, 1440 ml total volume. Education Materials: Understanding PEG Tube Feeding, Dehydration, Acute Kidney Failure Dc Print Language: Swedish Stand Alone Forms: Kerry Award Info., Patient Portal Info Letter Discharge Order Discharge Orders: Discharge (Routine); Ordered 04/23/24 Ordered By: Benson Montalvo Quality Discharge Quality Measures VTE prophylaxis Attestestation MD Attestation I have discussed and was present for the essential components of the discharge history, physical examination, diagnosis, and discharge treatment plan with the resident. I agree with the patient's discharge care as documented by the resident and amended herein by me. Dustin Melissa DO. The patient understood all discharge instructions, all questions were answered satisfactorily. The patient was instructed to return to the Emergency Department is symptoms worsened or persisted. Although this document has been carefully reviewed, there may still be some phonetic and other typographical errors. These errors are purely grammatical due to imperfections in the software program and should not be construed in any way to compromise the substance of the patient's medical care during this visit.
--- NOTE | 2024-04-25 21:35 | ESPR_ITS ---
Documentation for date of: 04/25/24 Subjective Subjective Interval history: Late entry for the note Case discussed with the internal medicine team Tolerating enteral hyperalimentation PEG site looks good No need for GI follow-up upon discharge Follow-up with the primary care physician Exam Vital Signs Temp Pulse Resp BP Pulse Ox O2 Del Method O2 Flow Rate 97.0 F 67 16 138/86 H 95 Room Air 3 04/25/24 12:00 04/25/24 13:14 04/25/24 12:00 04/25/24 13:14 04/25/24 12:00 04/25/24 12:00 04/24/24 12:00 Objective Labs 04/25/24 04:59 04/25/24 04:59 Labs: Laboratory Results - last 24 hr 04/25/24 04:59 WBC 6.3 RBC 4.02 Hgb 11.8 L Hct 35.4 L MCV 88 MCH 29.4 MCHC 33.3 RDW Std Deviation 48.0 H Plt Count 141 Neut % (Auto) 57 Lymph % (Auto) 31 [place] % (Auto) 10 Eos % (Auto) 2 Baso % (Auto) 0 Neut # (Auto) 3.6 Lymph # (Auto) 2.0 Stafford # (Auto) 0.6 Eos # (Auto) 0.1 Baso # (Auto) 0.0 Immature Gran # (Auto) 0.02 H Absolute Nucleated RBC 0.00 Immature Gran % 0 Nucleated RBC % 0 Sodium 138 Potassium 3.9 Chloride 107 Carbon Dioxide 22.6 Anion Gap 8 BUN 18 Creatinine 0.8 Estim Creat Clear Calc 74.0 eGFR > 60 BUN/Creatinine Ratio 23 H Glucose 120 H Calculated Osmolality 278 Calcium 8.2 L Corrected Calcium 8.4 L Phosphorus 2.2 L Magnesium 1.7 Total Bilirubin 0.4 AST 30 ALT 22 Alkaline Phosphatase 66 Total Protein 6.0 Albumin 3.7 Globulin 2.3 Albumin/Globulin Ratio 1.6 Impressions Impression: # Failure to thrive # PEG placement for enteral hyperalimentation As under HPI ABG Interpretation ABG results: 04/15/24 21:39 ABG pH 7.40 ABG pCO2 46 ABG pO2 103 ABG HCO3 28 H ABG O2 Saturation 98 ABG Base Excess 3 Assessment & Plan A&P Narrative ?uti in afebrile person with dementia but abnormal ua and marked dehydration feeding tube is a personal decision. stopped the ancef the other day. no ongoing abx. had fosfomycin for urine already disposition at your discretion will see again prn Time Spent With Patient Time: Total time spent is greater than 50% in coordination of care (as documented) at patient's floor/unit and/or counseling patient:
== END 2024-04-25 15:10 | disposition home health service (06) | DRG 640 ==
LOC: SERX 19:28 → SERHOLD 21:57 → S2NX 23:18
PROVIDERS: Internal Medicine Infectious Disease; Internal Medicine Nephrology; Registered Nurse General Practice; Specialist; Admitting Provider Student in an Organized Health Care Education/Training Program; Emergency Provider Emergency Medicine; Visit Provider Student in an Organized Health Care Education/Training Program
PROC: 0DH63UZ Insertion of Feeding Device into Stomach, Percutaneous Approach (ICD-10-PCS; CPT 43246; 2024-04-20 17:30)
DX: E83.52 Hypercalcemia (principal); G93.41 Metabolic encephalopathy; N39.0 Urinary tract infection, site not specified; E87.0 Hyperosmolality and hypernatremia; N17.9 Acute kidney failure, unspecified; E87.1 Hypo-osmolality and hyponatremia; Z68.41 Body mass index [BMI] 40.0-44.9, adult; Z16.12 Extended spectrum beta lactamase (ESBL) resistance; Z16.19 Resistance to other specified beta lactam antibiotics; E87.6 Hypokalemia; E86.0 Dehydration; F02.80 Dementia in other diseases classified elsewhere, unspecified severity, without behavioral disturbance, psychotic disturbance, mood disturbance, and anxiety; G30.9 Alzheimer's disease, unspecified; I10 Essential (primary) hypertension; E78.5 Hyperlipidemia, unspecified; G25.81 Restless legs syndrome; I25.10 Atherosclerotic heart disease of native coronary artery without angina pectoris; E87.5 Hyperkalemia; K20.90 Esophagitis, unspecified without bleeding; B96.20 Unspecified Escherichia coli [E. coli] as the cause of diseases classified elsewhere; E11.65 Type 2 diabetes mellitus with hyperglycemia; R62.7 Adult failure to thrive; E83.39 Other disorders of phosphorus metabolism; I48.91 Unspecified atrial fibrillation; R13.10 Dysphagia, unspecified; Z66 Do not resuscitate; Z95.1 Presence of aortocoronary bypass graft; Z85.3 Personal history of malignant neoplasm of breast; Z86.711 Personal history of pulmonary embolism; Z86.718 Personal history of other venous thrombosis and embolism; Z87.440 Personal history of urinary (tract) infections; Z90.12 Acquired absence of left breast and nipple; Z87.891 Personal history of nicotine dependence; Z92.3 Personal history of irradiation; Z59.82 Transportation insecurity; Z79.01 Long term (current) use of anticoagulants; Z79.899 Other long term (current) drug therapy
CPT/HCPCS: 36415; 36600; 70450; 70553; 71045; 80048; 80053; 80061; 80307; 81001; 82140; 82306; 82310; 82607; 82746; 82803; 83036; 83605; 83615; 83735; 83880; 83970; 84100; 84145; 84295; 84439; 84443; 84484; 85025; 85610; 85730; 86780; 86803; 87040; 87077; 87086; 87186; 92526; 92610; 93005; 96365; 96366; 99285; A4649; A9579; J0360; J0630; J0690; J0696; J0897; J1643; J1815; J2185; J2250; J2405; J2470; J3010; J3480; J7030; J7040; J7050; J7070; A9270; J1644

== ENCOUNTER 2024-07-24 12:16 | Emergency (ER) | payer MEDICARE, SELFPAY ==
[2024-07-24] VITALS (7 sets, daily range): BP systolic 119–179; BP diastolic 81–110; PULSE 72–83; RESP 16–18; TEMP 36.7–37.2; O2SAT 92–98; BMI 93.1
--- NOTE | 2024-07-24 13:02 | XR_ITS ---
Examination: CT pelvis without intravenous contrast. 2-D sagittal and coronal reconstructions. Date and time of exam:July 24, 2024 1425 hours INDICATIONS: Patient fell today with injury to the right hip, right hip pain CTDI: vol (mGy) :16.7 DLP: (mGycm) : 596 Technique: Multiple 3 mm axial sections of the pelvis have been obtained with the 64 slice high resolution scanner. 2-D sagittal and coronal reconstructions. Low dose protocols were performed. One or more of the following dose reduction techniques were used; automated exposure control, adjustment of the mA and/or KV according to patient size, use of iterative reconstruction technique. Findings: Prominent osteopenia Iliac bones acetabular regions anterior rami intact Right and left hips intact Moderate narrowing hip joints No pelvic hematoma Atrophic uterus Urinary bladder intact IMPRESSION: No acute hip or pelvic fracture
--- NOTE | 2024-07-24 13:02 | PD.EDLOWEX ---
Lower Extremity Injury RME/HPI General Chief Complaint: Extremity Injury, Lower Stated Complaint: RIGHT LEG PAIN Time Seen by Provider: 07/24/24 13:02 Arrival date/time: 07/24/24 12:16 RME / HPI RME / HPI Narrative: DR. URIOSTEGUI MAIN ED EVALUATION: This section includes all my notes and documentations, including HPI, PE, and ED course.? Srinivas Uriostegui MD HPI: 73 year old female with past medical history significant for bilateral knee chronic pain with bilateral knee replacements and a G tube presents to the Emergency Department BIBA accompanied by with complaints of right hip pain, right leg pain, and right knee pain; it is difficult to pinpoint pain mostly diffuse right leg pain secondary to fall 9 days ago. Pain is described as aching and moderate in severity. Movement exacerbates the pain. Per , he did not witness the fall because he was at the garage and then found the patient on the living room floor. Patient was sitting on a recliner couch, hit the button to get up by accident and fell forward. No other complaints reported. ROS: All negative except as documented in HPI. Physical Exam: General:? Alert and oriented.? No acute distress when remaining still.? Eyes:? Conjunctivae and lids clear. ENT:? No nasal congestion.? ? Neck:? Supple. Heart:? RRR. Lungs:? No respiratory distress.? Good air movement.? No rhonchi, wheezing, rales.? Abdomen:? Soft and nontender.? Skin:? Warm and dry.? Neuro:? Alert and oriented X 3.? Musculoskeletal: Equivocal right hip/femur tenderness. All other major joints and bones are nontender with no limited range of motion. I reviewed all diagnostic test results. My interpretation of the right femur fracture is comminuted distal right femur fracture. My review of the lower extremity CT report is?comminuted displaced fracture distal right femoral shaft Blood tests and urine tests unremarkable. At this point, diagnoses include comminuted displaced fracture distal right femoral shaft. Treatment here included morphine I discussed the case with taryn Burns.? About the presentation and exam and diagnostics and treatments here.? Recommends transfer due to lack of autoclave and radiolucent table here. At 6 PM on 07/24/2024, the care of the patient was transferred to Dr. Foley. Srinivas Uriostegui MD Related Data Home Medications ?Medication ?Instructions ?Recorded ?Confirmed atorvastatin 40 mg tablet (Lipitor) 80 mg PO HS #0 tabs 09/07/16 04/16/24 omeprazole 20 mg capsule,delayed 20 mg PO QDAY ##0 09/07/16 12/24/23 release amiodarone 200 mg tablet 200 mg PO QDAY 03/25/22 04/19/24 anastrozole 1 mg tablet 1 mg PO QDAY 03/25/22 04/19/24 apixaban 5 mg tablet (Eliquis) 5 mg PO BID 03/25/22 04/19/24 hydrocodone 10 mg-acetaminophen 1 tab PO QID PRN Pain, Moderate 03/25/22 04/19/24 325 mg tablet memantine 10 mg tablet 5 mg PO QDAY 03/25/22 04/19/24 pramipexole 0.5 mg tablet 0.5 mg PO HS 03/25/22 04/19/24 alendronate 35 mg tablet 20 mg PO WMHS 08/02/23 12/24/23 sennosides 8.6 mg tablet (Senna 8.6 mg PO QDAY 08/02/23 04/19/24 Lax) triazolam 0.125 mg tablet 0.25 mg PO HS PRN Insomnia 08/02/23 04/16/24 nifedipine 30 mg tablet,extended 30 mg PO QDAY 12/24/23 12/24/23 release 24 hr bisacodyl 5 mg tablet,delayed 5 mg PO BID 12/28/23 04/19/24 release (Dulcolax (bisacodyl)) fluoxetine 20 mg capsule 20 mg PO HS 12/28/23 04/19/24 gabapentin 600 mg tablet 100 mg PO HS 12/28/23 04/16/24 multivitamin 1 cap PO QDAY 12/28/23 12/28/23 sitagliptin phosphate 100 mg 100 mg PO QDAY 12/28/23 12/28/23 tablet (Januvia) Allergies Allergy/AdvReac Type Severity Reaction Status Date / Time meperidine Allergy Mild VOMITING Verified 07/24/24 12:35 tetracycline Allergy Mild RASH Verified 07/24/24 12:35 Course Quality Measures none Orders Category Date Time Status [facility] Routine Care 07/24/24 16:15 Ordered Saline [Insert IV] NOW Care 07/24/24 16:15 Completed Referral - [employer] Stat Cons 07/24/24 16:[address] lower extremity BI wo Stat Exams 07/24/24 13:[address] pelvis wo con Stat Exams 07/24/24 13:02 Completed XR femur RT 2V Stat Exams 07/24/24 16:00 Completed CBC Stat Lab 07/24/24 16:41 Completed CMP [Comprehensive Metabolic Panel] Stat Lab 07/24/24 16:41 Completed Magnesium Stat Lab 07/24/24 16:41 Completed PT [Prothrombin Time with INR] Stat Lab 07/24/24 16:41 Completed PTT [Partial Thromboplastin Time] Stat Lab 07/24/24 16:41 Completed UA, C/S IF [Urinalysis, C/S if Indicated] Stat Lab 07/24/24 16:31 Completed Morphine Inj Med 07/24/24 14:37 Discontinued 10 mg IM X1 ONE Morphine Inj Med 07/24/24 15:01 Discontinued 5 mg IVP X1 ONE Vital Signs Vital signs: Vital Signs Temperature 98.9 F 07/24/24 12:33 Pulse Rate 82 07/24/24 12:33 Respiratory Rate 18 07/24/24 12:33 Blood Pressure 119/83 07/24/24 12:33 Pulse Oximetry (%) 94 L 07/24/24 12:33 Oxygen Delivery Method Room Air 07/24/24 12:33 Extremity Injury, Lower MDM Narrative MDM Narrative:: Nina Cordero am scribing for and in the presence of Dr. Uriostegui. Patient data External records reviewed:: EMS form Clinical information provided by:: patient, EMS and spouse Social determinants that could affect healthcare access:: none Patient has the following chronic illnesses:: Bilateral knee chronic pain with bilateral knee replacements and a G tube How is presenting disease/condition affected by chronic disease/condition?: exacerbated by Evaluation data The following diagnostics were reviewed and interpreted by me:: lab results and radiology exam(s) Lab and/or radiology exams considered but not ordered:: none Interpretation Summary: comminuted displaced fracture distal right femoral shaft Medications / Prescriptions Medications or Prescriptions considered but not ordered:: none Medication administrations:: Medication Administration History Discontinued Medications Morphine Sulfate (Morphine Sulf Inj 10 Mg/Ml Vial) 10 mg IM X1 ONE Stop: 07/24/24 14:38 Last Admin: 07/24/24 15:04 Dose: Not Given Documented By: EDIE Non-Admin Reason: Discontinued Morphine Sulfate (Morphine Sulf Inj 10 Mg/Ml Vial) 5 mg IVP X1 ONE Stop: 07/24/24 15:02 Last Admin: 07/24/24 15:04 Dose: 5 mg Documented By: EDIE morphine Consultations Consultation(s) initiated? (list below): Yes Consultation #1 (Physician, Specialty, Details): I discussed the case with Dr. Gabriel, ortho.? About the presentation and exam and diagnostics and treatments here.? Recommends transfer due to lack of autoclave and radiolucent table here at this facility currently. Time: 16:10 Diagnosis Extremity Injury, Lower Differential Diagnosis: ankle sprain and strain, acute internal derangement of knee, fracture of femur, fracture of hip and other (knee fracture) Most likely diagnosis given after review of the tests above:: comminuted displaced fracture distal right femoral shaft Admission Indicated Admission indicated?: not indicated Explain why admission is indicated or not indicated:: Dr. Gabriel, our orthopedic surgeon, recommended transfer. Admission Request Was there a request for admission?: No Disposition Plan Disposition Plan: Transfer Discharge Plan Prescriptions/Referrals Prescriptions/Med Rec: No Action atorvastatin [Lipitor] 40 MG tablet 80 mg PO HS Qty: 0 omeprazole 20 MG capsule,delayed release(DR/EC) 20 mg PO QDAY Qty: 0 anastrozole 1 mg tablet 1 mg PO QDAY Patient Comments: TAKE 1 TABLET BY MOUTH EVERY DAY amiodarone 200 mg tablet 200 mg PO QDAY Patient Comments: TAKE 1 TABLET BY MOUTH EVERY DAY hydrocodone-acetaminophen 10-325 mg tablet 1 tab PO QID PRN (Reason: Pain, Moderate) Patient Comments: TAKE 1 TABLET BY MOUTH EVERY 6 HOURS NEEDED FOR SEVER BACK AND HIP PAIN pramipexole 0.5 mg tablet 0.5 mg PO HS Patient Comments: TAKE 1 TABLET BY MOUTH AT BEDTIME memantine 10 mg tablet 5 mg PO QDAY Eliquis 5 mg tablet 5 mg PO BID Patient Comments: TAKE 1 TABLET BY MOUTH TWICE A DAY sennosides [Senna Lax] 8.6 mg Tablet 8.6 mg PO QDAY alendronate 35 mg tablet 20 mg PO WMHS triazolam 0.125 mg Tablet 0.25 mg PO HS PRN (Reason: Insomnia) nifedipine 30 mg Tablet Extended Release 24hr 30 mg PO QDAY gabapentin 600 mg tablet 100 mg PO HS Patient Comments: TAKE 1 TABLET BY MOUTH THREE TIMES A DAY fluoxetine 20 mg capsule 20 mg PO HS Patient Comments: TAKE 1 CAPSULE BY MOUTH EVERY DAY Januvia 100 mg tablet 100 mg PO QDAY multivitamin Capsule 1 cap PO QDAY bisacodyl [Dulcolax (bisacodyl)] 5 mg Tablet,Delayed Release (Dr/Ec) 5 mg PO BID Referrals: Grace Lozada MD [Primary Care Provider] - In 1 week Problem List Clinical Impression: Fracture of right femur Patient/Caregiver Discharge Instructions Print Language: Armenian
--- NOTE | 2024-07-24 13:03 | XR_ITS ---
Examination: CT bilateral lower extremities, without contrast. 2-D sagittal reconstructions. 2-D coronal reconstructions. 3-D reconstructions. Date and time of exam:July 24, 2024 at 1425 hours INDICATIONS: Patient fell today with injury to both lower legs, bilateral lower leg pain CTDI: vol (mGy):15.6 DLP: (mGycm):1612 Technique: Multiple 1.25 mm axial sections of the bilateral lower extremities without contrast have been obtained. 2-D sagittal and coronal reconstructions have been obtained. 3-D reconstructions have been obtained. Low dose protocols were performed. One or more of the following dose reduction techniques were used; automated exposure control, adjustment of the mA and/or KV according to patient size, use of iterative reconstruction technique. Findings: Bilateral hips appear intact Acute displaced fracture distal right femoral shaft, 20 mm offset at the main fracture site Left femur intact Bilateral knee arthroplasties Tibia-fibula is appear intact IMPRESSION: Comminuted displaced fracture distal right femoral shaft
[2024-07-24] MEDS: MORPHINE SULF INJ 10 MG/ML VIAL 5 MG IVP (15:04)
--- NOTE | 2024-07-24 16:00 | XR_ITS ---
Examination: Right femur 2 views Technique one AP lateral right femur 2 views Exam date and time: July 24, 2024 1643 hours INDICATIONS: Patient fell one week ago with injury to the right hip and leg, right leg pain. FINDINGS: Acute severely comminuted fractures distal femoral shaft, at least 23 mm offset of the main fracture fragments The fractures appear to extend to the prosthetic femoral condyles There is no true lateral view of the femur IMPRESSION: Acute severely comminuted displaced fractures distal right femoral shaft
[2024-07-24 16:41] LABS: Collection Type, Urine Clean Catch
--- NOTE | 2024-07-24 16:42 | PC.CC ---
Addendum entered by Alice Hernandez RN 07/24/24 19:22: 1921 updates given to charge nurse. ED to follow up from here. Addendum entered by Alice Hernandez RN 07/24/24 19:18: 1839 Received call from [facility] with [facility]. She stated her orthopedic Dr. Velez is at capacity. Therefore, he declined the transfer. Addendum entered by Alice Hernandez RN 07/24/24 17:45: 1742 Received call from [facility], spoke to Yaron and initiated the transfer. She wants to speak to Dr. Uriostegui. Conference call connected. Addendum entered by Alice Hernandez RN 07/24/24 17:20: 1720 clinicals sent to [facility]. Addendum entered by Alice Hernandez RN 07/24/24 17:17: 1657 called [facility], spoke to Samaria and initiated the transfer. She stated she wants to speak to Dr. Uriostegui. Conference call connected. She then connected Dr. Karimi [facility] on the line for peer to peer with Dr. Uriostegui. Dr. Karimi stated pt need revision specialist. It is out of his scope of practice. Therefore, declined the transfer request. Original Note: 1642 clinicals sent to [facility]. [address] Uriostegui that patient has comminuted displaced fracture distal right femoral shaft needs orthopedic surgery services. Pt had both knee replaces at [facility] many years ago. Dr. Gabriel was consulted and he stated we don't have radiolucent table for surgery need to transfer the pt.
[2024-07-24 16:51] LABS: Bilirubin,Urine Negative (Negative); Blood,Urine Negative (Negative); Clarity,Urine Clear (Clear/Hazy); Color,Urine Colorless (Lt Yel-Yel); Culture Indicated,Urine Not Indicated; Glucose, Urine Trace (Negative); Hyaline Casts,Urine < 1 /hpf (0-1); Ketones,Urine Negative (Negative); Leukocyte Esterase,Urine Negative (Negative); Nitrite,Urine Negative (Negative); Protein,Urine 2+ (Neg - Trace); RBC,Urine < 1 /hpf (0-3); Specific Gravity,Urine 1.011 (1.001-1.035); Squamous Epithelial Cell,Urine 1 /hpf (0-5); Urobilinogen,Urine Negative mg/dL (0.0-1.0); WBC,Urine 1 /hpf (0-5)
[2024-07-24 17:01] LABS: Basophils % (Auto) 0 % (0-2.5); Eosinophils # (Auto) 0.2 Thou/mm3 (0.0-0.5); Eosinophils % (Auto) 2 % (0-10); Hematocrit 34.9 % (36.0-46.0); Immature Granulocytes % (Auto) 1 % (0-0); Immature Granulocytes Auto 0.04 Thou/mm3 (0.00-0.00); Lymphocytes # (Auto) 2.3 Thou/mm3 (1.0-4.8); Lymphocytes % (Auto) 27 % (10-50); Mean Corpuscular HGB Conc 31.5 g/dl (31.0-37.0); Mean Corpuscular Hemoglobin 28.4 pg (25.0-35.0); Mean Corpuscular Volume 90 fL (80-100); Monocytes # (Auto) 0.6 Thou/mm3 (0.0-0.8); Monocytes % (Auto) 7 % (0-12); Neutrophils # (Auto) 5.3 Thou/mm3 (1.8-7.7); Neutrophils % (Auto) 63 % (37-80); Nucleated Red Blood Cell % 0 /100 WBC (0); Platelet Count 243 Thou/mm3 (140-440); Red Blood Count 3.87 Miln/mm3 (4.00-5.20); White Blood Count 8.3 Thou/mm3 (3.6-11.0)
[2024-07-24 17:17] LABS: INR 1.1 (0.9-1.3); Prothrombin Time 11.8 Seconds (9.0-12.2)
[2024-07-24 17:44] LABS: Alanine Aminotransferase 26 U/L (10-49); Albumin/Globulin Ratio 1.3 (1.2-2.2); Alkaline Phosphatase 70 U/L (46-116); Anion Gap 10 (7-16); Aspartate Amino Transferase 56 U/L (0-34); BUN/Creatinine Ratio 20 Ratio (12-20); Bilirubin,Total 0.5 mg/dL (0.3-1.2); Blood Urea Nitrogen 18 mg/dL (9-23); Calcium 9.1 mg/dL (8.3-10.6); Calcium (Corrected) 9.1 mg/dL (8.5-10.1); Carbon Dioxide 25.3 mMol/L (20.0-31.0); Chloride 107 mMol/L (98-107); Creatinine (Component) 0.9 mg/dL (0.6-1.3); Estimated Creatinine Clearance 121.1 mL/min (>60); Glucose 164 mg/dL (74-106); Osmolality,Calculated 289 (275-295); Potassium 4.1 mMol/L (3.4-5.1); Sodium 142 mMol/L (136-145); eGFR > 60 See Note
--- NOTE | 2024-07-24 18:27 | PD.EDADDENDU ---
Emergency Room Addendum <Connie Wong - Last Filed: 07/24/24 22:11> Addendum Narrative: [address] Uriostegui. Past medical, surgical, social and family history reviewed. Vitals and home medications reviewed. Results and treatment plan discussed. I will assume the care of the patient at this time and will follow the patient, pending possible transfer for ortho services. Please refer to the emergency department record for history and examination from initial visit. The following addendum documentation note is intended to reflect any pending information, findings, or radiology results not included in the patient?s initial chart. Per previous provider, CT report of lower extremity revealed comminuted displaced fracture distal right femoral shaft. Dr. Uriostegui discussed the case with taryn Burns, about the presentation and exam and diagnostics and treatments here. He recommended transfer due to lack of autoclave and radiolucent table here. 2158: Case d/w [facility] Transfer Center. Awaiting a call back to confirm if they are able to accept the patient. <Cherelle Montalvo - Last Filed: 07/25/24 05:21> Addendum Narrative: 1800: Care assumed from Dr. Uriostegui. Past medical, surgical, social and family history reviewed. Vitals and home medications reviewed. Results and treatment plan discussed. I will assume the care of the patient at this time and will follow the patient, pending possible transfer for ortho services. Please refer to the emergency department record for history and examination from initial visit. The following addendum documentation note is intended to reflect any pending information, findings, or radiology results not included in the patient?s initial chart. Per previous provider, CT report of lower extremity revealed comminuted displaced fracture distal right femoral shaft. Dr. Uriostegui discussed the case with taryn Burns, about the presentation and exam and diagnostics and treatments here. He recommended transfer due to lack of autoclave and radiolucent table here. 2158: Case d/w [facility] Transfer Center. Awaiting a call back to confirm if they are able to accept the patient. 2354: Spoke with [facility]'s transfer center, who states Dr. Ramirez refused to accept the patient for transfer due to being a lateral transfer. 0009: [facility]'s transfer center called me back. Spoke with Dr. Ramirez, orthopedic surgeon from [facility], who requests to speak with our orthopedic surgeon. 0014: I called our orthopedic surgeon, Dr. Gabriel, who did not answer. I left a message for him to call me back. 0056: Dr. Gabriel called me back. I informed him that [facility]'s orthopedic surgeon requested to speak with him. He states he will call their transfer center and call me back. 0106: Dr. Gabriel called me back. He states that Dr. Ramirez wants the patient to remain in our ED since he cannot perform surgery on the patient for 3 days due to being on Eliquis and wants to see if the needed equipment here gets fixed. If not, Dr. Ramirez recommended to then call [facility] back for transfer. Will make attempts to transfer the patient to the next closest facility. 0129: Spoke with [facility]'s transfer center. Awaiting callback at this time. 0309: [facility] called back. Dr. Doyle, their orthopedic surgeon, requests to send a picture of the x-ray to him in order for him to determine if he is able to accept the patient. 0409: Dr. Doyle states he doesn't perform the services the patient will need and declines the patient for transfer. 0600: Care signed out to Dr. Uriostegui (emergency physician). Past medical, surgical, social and family history reviewed. Vitals and home medications reviewed. Results and treatment plan discussed. They will assume the care of the patient at this time and will follow the patient, pending transfer. Attestation <Connie Wong - Last Filed: 07/24/24 22:11> Attestation Scribe Attestation: I, Nupur oWng, am scribing for and in the presence of Dr. Foley. Provider Notation: Although this document has been carefully reviewed, there may still be some phonetic and other typographical errors. These errors are purely grammatical due to imperfections in the software program and should not be construed in any way to compromise the substance of the patient's medical care during this visit.
--- NOTE | 2024-07-24 22:04 | EKG_ITS ---
[facility] Test Date: 2024-07-24 Pat Name: VAIBHAV ZUÑIGA Department: Room: - Gender: Female [employer]: : 1950 Requested By: Patrice Adams Order Number: [id number] Reading MD: Patrice Adams Measurements Intervals [place] Rate: 78 P: 0 MS: 208 QRS: -47 QRSD: 125 T: 23 QT: 429 QTc: 490 Interpretive Statements SINUS RHYTHM LEFT ANTERIOR FASCICULAR BLOCK [QRS AXIS <= -45, QR IN I, RS IN II] VOLTAGE CRITERIA FOR LVH [MEETS CRITERIA IN ONE OF: R(aVL), S(V1), R(V5), R(V5/V6)+S(V1)] MINIMAL ST DEPRESSION [0.025+ mV ST DEPRESSION] Compared to ECG 04/15/2024 19:08:26 Left anterior fascicular block now present ST (T wave) deviation now present Left-axis deviation no longer present Intraventricular conduction delay no longer present /store/S0/[id number]/ecg/[id number].pdf
--- NOTE | 2024-07-24 22:26 | PC.LAC ---
2200 [facility] RETURNED CALL SPEAKING WITH DR STEARNS AT THIS TIME.
[2024-07-24] MEDS: ONDANSETRON INJ 2 MG/ML INJ 2 ML 4 MG IV (23:24)
[2024-07-24] MEDS: HYDROmorphone INJ 2 MG/ML VIAL 0.5 MG IVP (23:25)
[2024-07-25] VITALS (8 sets, daily range): BP systolic 102–160; BP diastolic 74–104; PULSE 68–79; RESP 9–90; TEMP 36.4–36.9; O2SAT 94–95
--- NOTE | 2024-07-25 01:12 | PD.ORTHCONPN ---
Subjective Subjective Brief History: Right leg pain Exam Vital Signs Temp Pulse Resp BP Pulse Ox O2 Del Method 98.1 F 78 16 138/81 H 94 L Room Air 07/24/24 22:00 07/24/24 23:51 07/24/24 23:51 07/24/24 23:51 07/24/24 23:51 07/24/24 23:51 Objective - Ortho Labs 07/24/24 16:41 07/24/24 16:41 Labs: Laboratory Results - last 24 hr 07/24/24 07/24/24 16:31 16:41 WBC 8.3 RBC 3.87 L Hgb 11.0 L Hct 34.9 L MCV 90 MCH 28.4 MCHC 31.5 RDW Std Deviation 48.0 H Plt Count 243 Neut % (Auto) 63 Lymph % (Auto) 27 [place] % (Auto) 7 Eos % (Auto) 2 Baso % (Auto) 0 Neut # (Auto) 5.3 Lymph # (Auto) 2.3 [place] # (Auto) 0.6 Eos # (Auto) 0.2 Baso # (Auto) 0.0 Immature Gran # (Auto) 0.04 H Absolute Nucleated RBC 0.00 Immature Gran % 1 H Nucleated RBC % 0 PT 11.8 INR 1.1 APTT 30.0 Sodium 142 Potassium 4.1 Chloride 107 Carbon Dioxide 25.3 Anion Gap 10 BUN 18 Creatinine 0.9 Estim Creat Clear Calc 121.1 eGFR > 60 BUN/Creatinine Ratio 20 Glucose 164 H Calculated Osmolality 289 Calcium 9.1 Corrected Calcium 9.1 Magnesium 2.0 Total Bilirubin 0.5 AST 56 H ALT 26 Alkaline Phosphatase 70 Total Protein 7.0 Albumin 4.0 Globulin 3.0 Albumin/Globulin Ratio 1.3 Ur Collection Type Clean Catch Urine Color Colorless A Urine Clarity Clear Urine pH 7.0 Ur Specific [place] 1.011 Urine Protein 2+ A Urine Glucose (UA) Trace Urine Ketones Negative Urine Blood Negative Urine Nitrite Negative Urine Bilirubin Negative Urine Urobilinogen (Auto) Negative Ur Leukocyte Esterase Negative Urine RBC < 1 Urine WBC 1 Ur Squamous Epith Cells 1 Urine Bacteria None Hyaline Casts < 1 Ur Culture Indicated? Not Indicated Assessment & Plan Diagnosis (1) Fracture of right femur: Status: Acute Assessment Additional comments: Patient is 73 yo female with a periprosthetic distal femur fracture 9 days ago on eliquis. We are recommending transfer to a higher level of care for 2 reasons. The primary reason is that we are having issues with the autoclave and sterilizers and have been unable to do surgeries recently because of this. I had to cancel my cases yesterday as we could not get the trays to dry after running it twice and waiting for several hours. I discussed this problem with the hospital and they are recommending that I transfer our acute cases because of this. The second reason for transfer is that we do not have a radiolucent table such as a kian which makes intraoperative imaging on a case like this very difficult. I have a hana table and a diving board so I can operate on more proximal fracture and distal fractures but unfortunately only a regular table which makes imaging and surgery on mid and distal femur fractures difficult and unsafe. Documentation for date of: 07/25/24
--- NOTE | 2024-07-25 01:21 | PC.NURSE ---
0114 [facility] CONTACTED NO TRAUMA AVAILABLE.
--- NOTE | 2024-07-25 01:29 | PC.NURSE ---
[address] STEARNS SPEAKING WITH TC AT THIS TIME.
[2024-07-25] MEDS: SODIUM CHLORIDE 0.9% 1000 ML 1,000 ML 999 ML IV (01:46)
[2024-07-25] MEDS: HYDROmorphone INJ 2 MG/ML VIAL 0.5 MG IVP ×3 (04:10→12:15)
--- NOTE | 2024-07-25 04:48 | PC.NURSE ---
0409 [facility] ASKED DR STEARNS TO SEND IMAGES TO DR NOBLES. DR NOBLES TEXTS BACK THAT HE DOES NOT DO THESE COMPLEX SURGERIES.
--- NOTE | 2024-07-25 04:50 | PC.NURSE ---
0409 DR NOBLES STATES WE SHOULD REACH OUT TO [facility] AND THEY ARE CLOSER.
--- NOTE | 2024-07-25 07:19 | PC.CC ---
Addendum entered by Alice Hernandez RN 07/25/24 15:12: 1511 called [facility], spoke to [place] and inform last picker time is 1730. 1505 called ED charge nurse and informed abpot last picker time is 1730. Addendum entered by Alice Hernandez RN 07/25/24 15:03: 1456 sent paperwork to [facility]. Called [facility], spoke to [facility] and set up the transport. The last picker time is 1730. Addendum entered by Alice Hernandez RN 07/25/24 14:58: 1445 transfer packet is complete with CD inside including all signatures. Transfer packet and number to call for report given to charge nurse. Addendum entered by Alice Hernandez RN 07/25/24 13:50: 1343 received call from Kendra at [facility] that pt is accepted for ED to ED transfer. Accepted by Dr. Alberts. Called report at [phone]. Addendum entered by Alice Hernandez RN 07/25/24 13:30: 1250 clinicals faxed to [facility]. 1241 Spoke to Kendra at [facility]. She stated pt is accepted at [facility] by Dr. Alberts for Dr. Fahad Emmanuel because he is not consulting sme. She requested to fax clinicals. [address] Uriostegui and updated him regarding the conversation with Kendra French. 1130 Spoke to Kendra French [facility], [place] to transfer the pt. Dr. Uriostegui to document the reason for transfer in his notes. 1107 called Kendra [facility], Renae Cole, Og Blancas, left . [address] Gabriel that he spoke to trauma surgeon Dr. Fahad Emmanuel at [facility] and he is accepting the pt. 1045 spoke to charge nurse, still waiting on Administration team to give OK to transfer the pt. Original Note: 5516 spoke to ED charge nurse, if pt still needs transfer. She stated she is waiting for Dr. Gabriel call and she will call me back with the update.
--- NOTE | 2024-07-25 07:33 | EDNOTE_ITS ---
Emergency Room Addendum <Nina Benavides - Last Filed: 07/25/24 12:41> Addendum Narrative: I took over the care from Dr. Foley at 6 AM on 07/25/2024, see his notes for other information. Please refer to the emergency department record for history and examination from initial visit.? I reviewed all diagnostic test results. My interpretation of the EKG is? My interpretation of the chest x-ray is My review of the CT report is? Blood tests and urine tests At this point, diagnoses include Treatment here included Significant improvement Not yet done: I discussed the case with our hospitalist.? About the presentation and exam and diagnostics and treatments here.? And need of further care in the hospital. Will accept the patient. Not yet done: Based on my best medical judgment, made decision no further evaluation or t reatment indicated at this time.? Patient understands and agrees to the discharge instructions customized and printed, see below. Srinivas Uriostegui MD <Srinivas Uriostegui MD - Last Filed: 07/25/24 15:52> Addendum Narrative: I took over the care from Dr. Foley at 6 AM on 07/25/2024, see previous notes for H&P and ED course. I reviewed all diagnostic test results. Current diagnoses include right distal comminuted femur fracture. I discussed the case again with our orthopedic surgeon, Dr. Gabriel.? About the presentation and exam and diagnostics and treatments here.? And need of further care in the hospital. Again, he recommended transfer to another facility for higher level of care. Please see his written notes. He discussed the case with traumatologist at [facility] and they will accept the patient to their medicine service. Dr. Fahad Emmanuel is the orthopedic surgeon there. I discussed the case with Dr. Alberts ([facility]).? About the presentation and exam and diagnostics and treatments here.? And need of further care there.? Will accept the patient. During my watch, the patient remained stable. Srinivas Uriostegui MD
--- NOTE | 2024-07-25 07:37 | PC.NURSE ---
PT IN ROOM RESTING WITH AT BEDSIDE PT IS AAOX4 ADVISED I WILL BE HER NURSE AND WE ARE WAITING FOR TRANSFER. NO PAIN REPORTED.
--- NOTE | 2024-07-25 10:00 | PC.NURSE ---
DR. PRECIADO CALLED [facility] [place] AWAITING CALL BACK
--- NOTE | 2024-07-25 10:47 | PC.NURSE ---
DR. PRECIADO SPEAKING WITH DR. PARIKH. DR. PARIKH SAYS WILL CALL SURGERY AND VARIFY WITH IF EQUIPMENT HE NEEDS IS AVAILABLE
[2024-07-25] MEDS: HYDROmorphone INJ 2 MG/ML VIAL 1 MG IVP (15:03)
--- NOTE | 2024-07-25 15:08 | PC.NURSE ---
[facility] IS NEEDING [facility] FOR PLACEMENT
--- NOTE | 2024-07-26 14:41 | ESPR_ITS ---
Subjective Subjective Brief History: Right leg pain Narrative: The ed doctor reports that no [facility] was willing to accept the patient i called the orthopaedic traumatolgist at [facility] on 07/25 in the late morning and went over the films We both agreed that this would benefit from a retrograde nail and possibly a supplemental plate i discussed with him that i unfortunately do not have a radiolucent table to visualize the proximal femur to do perfect circles for a retrograde nail. He stated this would make the case near impossible and accepted the patient for transfer on 07/25 if we could get the patient to a medical service. he would plan for surgery 07/26/2024 or 07/27/2024 once the dvt prophylaxis has worn off. Exam Vital Signs Temp Pulse Resp BP Pulse Ox O2 Del Method 97.7 F 68 16 102/74 95 Room Air 07/25/24 16:06 07/25/24 17:00 07/25/24 17:00 07/25/24 16:06 07/25/24 17:00 07/25/24 16:06 Objective - Ortho Labs 07/24/24 16:41 07/24/24 16:41 Assessment & Plan Diagnosis (1) Fracture of right femur: Status: Acute Assessment Additional comments: Patient is a 73 yo female with a periprosthetic comminuted distal femur fracture who presented on 07/24/2024 after being found down for 9 days. I notified the ER that i recommend transfer of the patient for two reasons. The first reason is i had to cancel prior orthopaedic trauma cases on 07/24/2024 due to sterile processing issues which were ultimately resolved on 07/25/2024 due to some issues with dry time. i was given assurance that this was fixed on 07/25/2024 and completed the surgical case i had to cancel before. The second reason is that I do not have access to a kian flat top at this hospital and only have access to a hana table and a diving board. Given the location of the fracture and body habitus, she would benefit from a retrograde nail which cannot be done on a hana table due to the knee flexion needed and a diving board will not be able to image the femur proximally for the perfect circles. Because of this imaging issue, a retrgrade nail or long lateral plate would be difficult to do at this hospital and thus i recommended transfer to a trauma center. i have also spoken to multiple traumatologists to explain the challenges and found a traumaologist at [facility] who is in agreement and accepted this patient for transfer. Plan
== END 2024-07-25 17:48 | disposition short-term general hospital (02) ==
PROVIDERS: Emergency Provider Emergency Medicine; PCP Internal Medicine
DX: S72.351A Displaced comminuted fracture of shaft of right femur, initial encounter for closed fracture (principal); S79.911A Unspecified injury of right hip, initial encounter; S89.92XA Unspecified injury of left lower leg, initial encounter; W07.XXXA Fall from chair, initial encounter; Z75.1 Person awaiting admission to adequate facility elsewhere; I44.4 Left anterior fascicular block
CPT/HCPCS: 51702; 36415; 72192; 73552; 73700; 80053; 81001; 83735; 85025; 85610; 85730; 93005; 96361; 96374; 96375; 99285; J2270; J2405; J3490; J7030

== ENCOUNTER → 2024-12-10 | Outpatient (CLI) | payer MEDICARE, BC, SELFPAY ==
[2024-12-10 10:39] LABS: Collection Type, Urine Clean Catch
[2024-12-10 11:37] LABS: Basophils # (Auto) 0.0 Thou/mm3 (0.0-0.2); Basophils % (Auto) 1 % (0-2.5); Eosinophils # (Auto) 0.2 Thou/mm3 (0.0-0.5); Eosinophils % (Auto) 3 % (0-10); Hematocrit 33.8 % (36.0-46.0); Hemoglobin 10.8 g/dL (12.0-16.0); Immature Granulocytes Auto 0.02 Thou/mm3 (0.00-0.00); Lymphocytes # (Auto) 1.6 Thou/mm3 (1.0-4.8); Lymphocytes % (Auto) 28 % (10-50); Mean Corpuscular HGB Conc 32.0 g/dl (31.0-37.0); Mean Corpuscular Hemoglobin 26.8 pg (25.0-35.0); Mean Corpuscular Volume 84 fL (80-100); Monocytes # (Auto) 0.6 Thou/mm3 (0.0-0.8); Monocytes % (Auto) 10 % (0-12); Neutrophils # (Auto) 3.4 Thou/mm3 (1.8-7.7); Neutrophils % (Auto) 59 % (37-80); Nucleated Red Blood Cell # 0.00 Thou/mm3 (0.00-0.00); Nucleated Red Blood Cell % 0 /100 WBC (0); Platelet Count 156 Thou/mm3 (140-440); RDW Standard Deviation 53.5 fL (36.4-46.3); Red Blood Count 4.03 Miln/mm3 (4.00-5.20); White Blood Count 5.9 Thou/mm3 (3.6-11.0)
[2024-12-10 11:40] LABS: Alanine Aminotransferase 49 U/L (10-49); Albumin, Serum 3.7 gm/dL (3.4-4.8); Albumin/Globulin Ratio 1.5 (1.2-2.2); Alkaline Phosphatase 59 U/L (46-116); Anion Gap 11 (7-16); Aspartate Amino Transferase 69 U/L (0-34); BUN/Creatinine Ratio 27 Ratio (12-20); Bilirubin,Total 0.3 mg/dL (0.3-1.2); Blood Urea Nitrogen 27 mg/dL (9-23); Calcium 9.4 mg/dL (8.3-10.6); Calcium (Corrected) 9.6 mg/dL (8.5-10.1); Carbon Dioxide 22.6 mMol/L (20.0-31.0); Cardiac Risk Estimate 6.8 RATIO (3.7-5.6); Chloride 108 mMol/L (98-107); Cholesterol 162 mg/dL (132-200); Creatinine (Component) 1.0 mg/dL (0.6-1.3); Free T4 (Free Thyroxine) 1.35 ng/dL (0.89-1.76); Globulin 2.5 gm/dL (2.3-3.5); Glucose 190 mg/dL (74-106); HDL Cholesterol 24 mg/dL (40-60); LDL Cholesterol,Calculated 76 mg/dL (0-130); Osmolality,Calculated 293 (275-295); Potassium 3.8 mMol/L (3.4-5.1); Sodium 142 mMol/L (136-145); Thyroid Stimulating Hormone 1.44 uIU/mL (0.55-4.78); Total Protein 6.2 gm/dL (5.7-8.2); Triglycerides 309 mg/dL (30-150); eGFR 59 See Note
[2024-12-10 12:08] LABS: Bilirubin,Urine Negative (Negative); Blood,Urine Trace (Negative); Budding Yeast,Urine Present; Color,Urine Lt-Yellow (Lt Yel-Yel); Glucose, Urine 4+ (Negative); Ketones,Urine Negative (Negative); Leukocyte Esterase,Urine Positive (Negative); Nitrite,Urine Negative (Negative); PH,Urine 6.0 (5.0-7.0); Protein,Urine 2+ (Neg - Trace); RBC,Urine 2 /hpf (0-3); Specific Gravity,Urine 1.018 (1.001-1.035); Squamous Epithelial Cell,Urine 2 /hpf (0-5); Urobilinogen,Urine Negative mg/dL (0.0-1.0); WBC,Urine 120 /hpf (0-5)
[2024-12-10 12:11] LABS: Glucose Estimated Average 214 mg/dL (80-131); Hemoglobin A1C 9.1 % Hgb (4.8-6.0)
[2024-12-10 12:20] LABS: Creatinine MALB Rnd Ur 37 mg/dL (30-125)
[2024-12-10 12:24] LABS: Microalbumin Creat Ratio 3449 mg/gCrea (<30); Microalbumin, Random Urine 1276 mg/L (0-300)
[2024-12-10 12:39] LABS: Clarity,Urine Hazy (Clear/Hazy); Culture Indicated,Urine Yes
== END | disposition home or self-care (01) ==
LOC: SLDO 10:33
PROVIDERS: PCP Internal Medicine; Referring Provider Internal Medicine; Visit Provider Internal Medicine
DX: E11.65 Type 2 diabetes mellitus with hyperglycemia (principal)
CPT/HCPCS: 36415; 80053; 80061; 81001; 82043; 82570; 83036; 84439; 84443; 85025; 87086